=== PATIENT | male | born 1935 | race Caucasian/White ===

== ENCOUNTER 2016-11-27 13:10 | Inpatient (IN) | payer MEDICARE ==
[~2016-11-27] VITALS: Ht 167.6 cm; Wt 82.8 kg
[2016-11-27 16:35] VITALS: BP 157/78; PULSE 80; RESP 16; TEMP 97.3; O2SAT 95
[2016-11-27 17:00] VITALS: PULSE 75
--- NOTE | 2016-11-27 17:06 | RADRPT ---
EXAM DATE/TIME: 11/27/2016 16:43 [facility] COMPARISON: No previous studies available for comparison. INDICATIONS : Evaluate for pneumonia, pneumothorax, and communicable disease. Preop for CABG. MEDICAL HISTORY : None. SURGICAL HISTORY : None. ENCOUNTER: Initial ACUITY: 1 day PAIN SCORE: 0/10 LOCATION: Bilateral chest FINDINGS: A single view of the chest demonstrates the lungs to be symmetrically aerated without evidence of mas s, infiltrate or effusion. The cardiomediastinal contours are unremarkable. Osseous structures are intact. CONCLUSION: No acute disease. Antonio Ryan MD FACR on November 27, 2016 at 17:04 Board Certified Radiologist. This report was verified electronically.
[2016-11-27] MEDS ORDERED: FISHCAP4 PO (17:34)
[2016-11-27] MEDS ORDERED: PANT40TA3 PO (17:34)
[2016-11-27] MEDS ORDERED: VALS1TAB65 PO (17:34)
[2016-11-27] MEDS ORDERED: MIRT30TA PO (17:34)
[2016-11-27] MEDS ORDERED: TURM500C PO (17:34)
[2016-11-27] MEDS ORDERED: TERA2CAP3 PO (17:34)
[2016-11-27] MEDS ORDERED: CELE200C PO (17:34)
[2016-11-27] MEDS ORDERED: NITR0.2D2 T-DERMAL (17:34)
[2016-11-27] MEDS ORDERED: CLOP75TA PO (17:34)
[2016-11-27] MEDS ORDERED: LORA-373 PO (17:34)
[2016-11-27] MEDS ORDERED: MULTTAB67 PO (17:34)
[2016-11-27] MEDS ORDERED: METO25TA3 PO (17:34)
[2016-11-27] MEDS ORDERED: LUMI0.01 EACH EYE (17:34)
[2016-11-27] MEDS ORDERED: ASPI81CH CHEW (17:34)
[2016-11-27] MEDS ORDERED: MAGNESIUM HYDROXIDE SUSP 30 ML CUP PO PRN (17:45)
[2016-11-27] MEDS ORDERED: ONDANSETRON HCL 4 MG/2 ML VIAL IV PRN (17:45)
[2016-11-27] MEDS ORDERED: ACETAMINOPHEN 325 MG TAB PO PRN (17:45)
[2016-11-27 18:00] VITALS: PULSE 76
[2016-11-27] MEDS ORDERED: NITROGLYCERIN 0.4 MG SL 25 TABS/BTL SL PRN (18:00)
[2016-11-27 19:00] VITALS: BP 157/78; PULSE 85; RESP 18; TEMP 97.9; O2SAT 99
[2016-11-27] MEDS: DOCUSATE SODIUM 100 MG CAP PO SCH (21:00)
[2016-11-27] MEDS: TERAZOSIN HCL 1 MG CAP PO SCH (21:54)
[2016-11-27] MEDS: METOPROLOL TARTRATE 25 MG TAB PO SCH (21:54)
[2016-11-27 22:41] LABS: P2Y12 REACTION UNITS (PRU) 88 PRU (194-418)
[2016-11-27 22:54] LABS: BLOOD, URINE NEG (NEG); GLUCOSE,URINE NEG (NEG); KETONE, URINE TRACE mg/dL (NEG); NITRITE,URINE NEG (NEG); PH, URINE 6.5 (5.0-8.5); URINE COLOR YELLOW (YELLW/STRAW)
[2016-11-27 22:57] LABS: COMMENT (UR) CULT NOT INDICATED; CULTURE IF INDICATED CULT NOT INDICATED
[2016-11-27 23:00] VITALS: PULSE 80
[2016-11-28] VITALS (20 sets, daily range): BP systolic 124–188; BP diastolic 59–88; PULSE 67–139; RESP 16–22; TEMP 97.3–98.6; O2SAT 93–97
[2016-11-28] MEDS: PANTOPRAZOLE SOD 40 MG DELAYED RELEASE TAB PO SCH (05:55)
[2016-11-28 06:13] LABS: AUTOMATED NEUTROPHIL # 2.8 TH/MM3 (1.8-7.7); BASOPHIL % 0.9 % (0.0-2.0); EOSINOPHIL # 0.1 TH/MM3 (0-0.4); EOSINOPHIL % 2.9 % (0.0-4.0); HEMATOCRIT 32.7 % (39.0-51.0); HEMO FLAGS DIFF FINAL; LYMPH % 21.3 % (9.0-44.0); MEAN CELL VOLUME 89.3 FL (80.0-100.0); MEAN CORPUSCULAR HEMOGLOBIN 30.6 PG (27.0-34.0); MEAN CORPUSCULAR HGB CONC 34.2 % (32.0-36.0); MONO % 12.3 % (0.0-8.0); NEUT % 62.6 % (16.0-70.0); PLATELET COUNT 186 TH/MM3 (150-450); RED BLOOD COUNT 3.66 MIL/MM3 (4.50-5.90); RED CELL DISTRIBUTION WIDTH 13.1 % (11.6-17.2); WHITE BLOOD COUNT 4.5 TH/MM3 (4.0-11.0)
[2016-11-28 06:40] LABS: ANION GAP 8 MEQ/L (5-15); AST (GOT) 13 U/L (15-37); BLOOD UREA NITROGEN 11 MG/DL (7-18); CHLORIDE 104 MEQ/L (98-107); GLOMERULAR FILTRATION RATE 93 ML/MIN (>89); SODIUM (NA) 139 MEQ/L (136-145)
[2016-11-28 06:43] LABS: ALKALINE PHOSPHATASE 61 U/L (45-117); ALT (GPT) 19 U/L (12-78); TOTAL BILIRUBIN ADULT 0.3 MG/DL (0.2-1.0)
[2016-11-28] MEDS: METOPROLOL TARTRATE 25 MG TAB PO SCH ×2 (08:03→20:28)
[2016-11-28] MEDS: DOCUSATE SODIUM 100 MG CAP PO SCH ×2 (08:03→20:28)
[2016-11-28] MEDS ORDERED: ASPIRIN EC 81 MG TABEC PO SCH (09:00)
[2016-11-28] MEDS ORDERED: ACETAMINOPHEN/HYDROcodone 325 MG/5 MG TAB PO PRN (10:00)
[2016-11-28] MEDS ORDERED: LORazepam 0.5 MG TAB PO PRN (10:00)
[2016-11-28] MEDS ORDERED: METOPROLOL TARTRATE 25 MG TAB PO SCH (14:15)
[2016-11-28] MEDS ORDERED: SODIUM CHLORIDE 0.9% FLUSH 5 ML FLUSH IV FLUSH PRN (14:15)
[2016-11-28] MEDS ORDERED: CEFAZOLIN INJ 500 MG in SODIUM CHLORIDE 0.9% IRR BTL 500 ML IRRIGATION SCH (14:15)
[2016-11-28] MEDS ORDERED: PAPAVERINE INJ 60 MG, NITROGLYCERIN INJ 100 MCG, DILTIAZEM INJ 100 MG in SODIUM CHLORID... IRRIGATION SCH (14:15)
[2016-11-28] MEDS ORDERED: INSULIN REGULAR (IV INFUSION) 100 UNITS in SODIUM CHLORIDE 0.9% INJ 100 ML IV SCH (14:15)
[2016-11-28] MEDS ORDERED: CHLORHEXIDINE GLUCONATE 4% SOLN 120 ML BTL TOPICAL SCH (14:15)
[2016-11-28] MEDS ORDERED: ceFAZolin 2 GM PREMIX 50 ML IV SCH (14:15)
[2016-11-28] MEDS ORDERED: PILL SPLITTER OTHER PRN (15:15)
--- NOTE | 2016-11-28 16:02 | RADRPT ---
EXAM DATE/TIME: 11/28/2016 15:11 [facility] COMPARISON: No previous studies available for comparison. INDICATIONS : Preop cardiac surgery. MEDICAL HISTORY : Hypertension. Gastroesophageal reflux disease. Rheumatoid arthritis. Detached retina. Chest pain. SURGICAL HISTORY : Inguinal hernia repair. Bilateral cataract surgery. Prostate biopsy. Cardiac cath. ENCOUNTER: Initial ACUITY: 1 day PAIN SCORE: 0/10 LOCATION: Bilateral leg. GREATER SAPHENOUS VEIN THIGH: PROXIMAL: Right 3 mm Left 4 mm MID: Right 2 mm Left 2 mm DISTAL: Right 1 mm Left 2 mm CALF: PROXIMAL: Right 1 mm Left 1 mm MID: Right 1 mm Left 1 mm DISTAL: Right Non-visualized Left Non-visualized FINDINGS: The venous system of the lower extremities are patent by color Doppler imaging. Measurements of the leg veins (in mm) are listed above. CONCLUSION: 1. Venous mapping as above Nakul Napoles MD on November 28, 2016 at 16:00 Board Certified Radiologist. This report was verified electronically.
--- NOTE | 2016-11-28 16:07 | RADRPT ---
EXAM DATE/TIME: 11/28/2016 14:39 [facility] COMPARISON: No previous studies available for comparison. INDICATIONS : Preop cardiac surgery. MEDICAL HISTORY : Hypertension. Gastroesophageal reflux disease. Rheumatoid arthritis. Detached retina. Chest pain. SURGICAL HISTORY : Inguinal hernia repair. Bilateral cataract surgery. Prostate biopsy. Cardiac cath. ENCOUNTER: Initial ACUITY: 1 day PAIN SCORE: 0/10 LOCATION: Bilateral neck PEAK SYSTOLIC VELOCITIES (cm/sec): ICA/CCA RATIO: Right: 1.4 Left: 0.9 ICA: Right: 98 Left: 100 CCA: Right: 70 Left: 106 ECA: Right: 76 Left: 80 VERTEBRAL: Right: 58 antegrade Left: 70 antegrade Elevated flow velocities and ICA/CCA ratios have been found to correlate with increased degrees of vessel stenosis, calculated as percentage of diameter relative to a normal segment of distal ICA/CCA FINDINGS: RIGHT CAROTID: There is mild plaque at the carotid bulb region. No significant stenosis is visualized. The waveform s are within normal limits. LEFT CAROTID: There is mild plaque at the carotid bulb region. No significant stenosis is visualized. The waveform s are within normal limits. VERTEBRAL ARTERIES: Antegrade flow is seen in both vertebral arteries. MISCELLANEOUS: None. CONCLUSION: Mild plaque at the carotid bulb regions without a significant stenosis. Jose Juan Johnson MD on November 28, 2016 at 16:05 Board Certified Radiologist. This report was verified electronically.
--- NOTE | 2016-11-28 16:08 | RADRPT ---
EXAM DATE/TIME: 11/28/2016 14:56 [facility] COMPARISON: No previous studies available for comparison. INDICATIONS : Preop cardiac surgery. MEDICAL HISTORY : Hypertension. Gastroesophageal reflux disease. Rheumatoid arthritis. Detached retina. Chest pain. SURGICAL HISTORY : Inguinal hernia repair. Bilateral cataract surgery. Prostate biopsy. Cardiac cath. ENCOUNTER: Initial ACUITY: 1 day PAIN SCORE: 0/10 LOCATION: Bilateral leg. TECHNIQUE: Venous ultrasound of the left and right leg was performed from the inguinal ligament to the proximal calf. Real-time, color Doppler and spectral tracing, compression and augmentation techniques were us ed. FINDINGS: RIGHT LEG: There is normal compressibility of the deep venous system from the inguinal region to the proximal ca lf. No echogenic clot is seen in the lumen of the common femoral, femoral, popliteal, and posterior tibial veins. There is a normal response of the venous system to proximal and distal augmentation an d respiration. LEFT LEG: There is normal compressibility of the deep venous system from the inguinal region to the proximal ca lf. No echogenic clot is seen in the lumen of the common femoral, femoral, popliteal, and posterior tibial veins. There is a normal response of the venous system to proximal and distal augmentation an d respiration. CONCLUSION: No DVT. Jose Juan Johnson MD on November 28, 2016 at 16:06 Board Certified Radiologist. This report was verified electronically.
--- NOTE | 2016-11-28 19:04 | EC ---
Study Study Date:11/28/2016 STUDY CONCLUSIONS SUMMARY - Left ventricle: The cavity size was normal. Wall thickness was normal. Systolic function was normal. The estimated ejection fraction was in the range of 55% to 60%. Wall motion was normal; there were no regional wall motion abnormalities. - Aortic valve: Mild regurgitation. - Mitral valve: Mild regurgitation. - Tricuspid valve: Mild regurgitation. - Pulmonary arteries: PA peak pressure: 36mm Hg (S). If LV function is below 40, please consider prescribing an ACEI or ARB or document rationale for non-use. PROCEDURE DATA STUDY STATUS: Elective. Procedure: Transthoracic echocardiography. Image quality was good. Scanning was performed from the parasternal, apical, and subcostal acoustic windows. Study completion: The patient tolerated the procedure well. Transthoracic echocardiography. M-mode, complete 2D, complete spectral Doppler, and color Doppler. Patient status: Inpatient. CARDIAC ANATOMY LEFT VENTRICLE: The cavity size was normal. Wall thickness was normal. Systolic function was normal. The estimated ejection fraction was in the range of 55% to 60%. Wall motion was normal; there were no regional wall motion abnormalities. AORTIC VALVE: Trileaflet; normal thickness leaflets. Doppler: Transvalvular velocity was within the normal range. There was no stenosis. Mild regurgitation. AORTA: Aortic root: The aortic root was normal in size. MITRAL VALVE: Structurally normal valve. Doppler: Transvalvular velocity was within the normal range. There was no evidence for stenosis. Mild regurgitation. LEFT ATRIUM: The atrium was normal in size. RIGHT VENTRICLE: The cavity size was normal. Wall thickness was normal. PULMONIC VALVE: Doppler: Transvalvular velocity was within the normal range. There was no evidence for stenosis. No regurgitation. TRICUSPID VALVE: Structurally normal valve. Doppler: Transvalvular velocity was within the normal range. Mild regurgitation. PULMONARY ARTERY: The main pulmonary artery was normal-sized. Systolic pressure was within the normal range. RIGHT ATRIUM: The atrium was normal in size. PERICARDIUM: There was no pericardial effusion. SYSTEMIC VEINS: Inferior vena cava: The vessel was normal in size. BASIC MEASUREMENTS ADULT Normal Left ventricle LV internal dimension, ED, chordal level, *40.4 mm 43-52 PLAX LV internal dimension, ES, chordal level, 30 mm 23-38 PLAX Fractional shortening, chordal level, PLAX *26 % >29 LV posterior wall thickness, ED 10.5 mm IVS/LVPW ratio, ED 1.15 <1.3 Ventricular septum Septal thickness, ED 12.1 mm Aortic valve Leaflet separation 22 mm 15-26 Right ventricle RV internal dimension, ED, PLAX 34.7 mm 19-38 BASIC MEASUREMENTS ADULT Normal Aortic valve Leaflet separation 22 mm 15-26 Aorta Root diameter, ED 34 mm 20-37 Left atrium Anterior-posterior dimension, ES *45 mm 19-40 LA/aortic root ratio 1.32 DOPPLER MEASUREMENTS ADULT Normal Main pulmonary artery Pressure, S *36 mm Hg =30 Aortic valve Regurgitant velocity, ED 317 cm/s Regurgitant deceleration 1570 cm/s^2 Regurgitant pressure half-time 592 ms Regurgitant gradient, ED 40 mm Hg Tricuspid valve Regurgitant peak velocity 254 cm/s Peak RV-RA gradient, S 26 mm Hg Systemic veins Estimated CVP 10 mm Hg Right ventricle RV pressure, S *36 mm Hg <30 LEGEND: Mean values are shown as u=mean value. Asterisk (*) shah values outside specified normal range. Prepared and signed by Mateusz Page [id number]
[2016-11-28] MEDS: SODIUM CHLORIDE 0.9% FLUSH 5 ML FLUSH IV FLUSH SCH (20:28)
[2016-11-28] MEDS: ATORVASTATIN 40 MG TAB PO SCH (20:28)
[2016-11-28] MEDS: TERAZOSIN HCL 1 MG CAP PO SCH (20:28)
[2016-11-28] MEDS: traZODone HCL 50 MG TAB PO SCH (20:28)
[2016-11-28] MEDS: MIRTAZAPINE 15 MG TAB PO SCH (20:31)
[2016-11-28] MEDS ORDERED: MIRTAZAPINE 15 MG TAB PO SCH (21:00)
[2016-11-29] VITALS (27 sets, daily range): BP systolic 117–167; BP diastolic 58–76; PULSE 64–84; RESP 16–18; TEMP 97.6–98.1; O2SAT 95–97
[2016-11-29] MEDS: PANTOPRAZOLE SOD 40 MG DELAYED RELEASE TAB PO SCH (05:37)
[2016-11-29 06:07] LABS: P2Y12 REACTION UNITS (PRU) 168 PRU (194-418)
--- NOTE | 2016-11-29 08:45 | MH ---
cc: QUIQUE ALFORD MD DATE OF ADMISSION: 11/27/2016 DATE OF : 1935 HISTORY OF PRESENT ILLNESS An 81-year-old male patient of Dr. Wilson and Dr. Cristian Carrion from [facility] complaining of substernal chest pain off and on for about 10 days, mainly with exertion, and some radiation to both arms, relieved with rest. Initially was told to go to the emergency room but refused and then saw Dr. Carrion in the office. His pain was improved with a nitro patch but he did have worsening symptoms. He had a heart catheterization and was found to heavy calcification in the distribution of the left coronary artery and right coronary artery. The LAD had a ostial 90% stenosis, additional stenosis in the proximal and mid segment. The diagonal had a 90% stenosis. The circumflex had ostial 90%. The marginal artery had a mid 90%. The RCA had proximal segment of 90%. EF was 60%. The patient was then transferred to our facility to be evaluated for coronary artery bypass grafting. PAST MEDICAL HISTORY 1. Hypertension. 2. Hyperlipidemia. 3. Prostate cancer. 4. Severe rheumatoid arthritis. 5. Coronary artery disease. 6. Multivalvular insufficiency. 7. History of ventricular tachycardia. PAST SURGICAL HISTORY 1. Prostate seed implant. 2. Right hand surgery for extensive rheumatoid arthritis. 3. Cataract surgery. 4. Inguinal hernia repair. ALLERGIES HYDROCHLOROTHIAZIDE. MEDICATIONS Home meds include: 1. Fosamax. 2. Baby aspirin. 3. Celebrex. 4. Dexilant. 5. Enbrel. 6. Folic acid. 7. Ativan. 8. Metoprolol. 9. Nitro patch. 10. Plavix 75 mg daily. 11. Terazosin. 12. Trazodone. 13. Valsartan. FAMILY HISTORY Father from cancer, mother liver failure. SOCIAL HISTORY The patient is . Retired from [employer]. Has three children. Smoked for about 20 years, one pack, quit in the 1980s. No alcohol. REVIEW OF SYSTEMS GENERAL: No night sweats, fever, heat and cold intolerance. SKIN: No psoriasis, itching or hives. HEENT: No blurred vision or hearing loss. RESPIRATORY: No cough, shortness of breath. CARDIOVASCULAR: As above in HPI. GASTROINTESTINAL: No diarrhea, vomiting. GENITOURINARY: No burning, frequency, urgency. AS400 PROGRAMMER: No history of TIA, CVA, seizure disorder. ENDOCRINE: No diabetes or hypothyroidism. PHYSICAL EXAMINATION VITAL SIGNS: Blood pressure 160/80, heart rate 80, afebrile. GENERAL: The patient is awake, alert, in no acute distress. HEENT: Normocephalic, atraumatic. Has some arcus senilis. Some keratotic skin changes on the face. NECK: Supple. No JVD. HEART: Heart sounds S1, S2, regular rate and rhythm. No rubs, murmurs, gallops. LUNGS: Clear to auscultation. No wheezes, rales or rhonchi. ABDOMEN: Soft, nontender. No masses or organomegaly. EXTREMITIES: No cyanosis, clubbing or edema. LABORATORY DATA Lab work shows hemoglobin 11, hematocrit 32, white cell count 4.5, platelet count 186. Sodium 139, potassium 4.0, BUN 11, creatinine 0.80, AST 13, ALT 19. INR 1.0. Platelet inhibition is 88. Urinalysis is unremarkable. IMAGING DATA Chest x-ray is unremarkable. IMPRESSION AND PLAN This is an 81-year-old patient with recent chest pain, multivessel coronary artery disease. The procedures, alternatives and risks have been discussed by Dr. Quique Alford. The plan is for off-pump coronary bypass grafting on , possibly on Sunday. Will recheck a platelet inhibition test on ; will need to be greater than 200. This was all explained to the patient. In the meantime will add nitro to his medication list. We are going to hold the aspirin secondary to his low platelet inhibition test of 88. Further planning as per Dr. Alford. Dictated by: SINAN Belcher Quique CARTY/TASNEEM /11:03 AM /8:43 AM
[2016-11-29] MEDS: METOPROLOL TARTRATE 25 MG TAB PO SCH ×2 (08:59→20:46)
[2016-11-29] MEDS: DOCUSATE SODIUM 100 MG CAP PO SCH ×2 (08:59→20:46)
[2016-11-29] MEDS: SODIUM CHLORIDE 0.9% FLUSH 5 ML FLUSH IV FLUSH SCH ×2 (08:59→21:00)
[2016-11-29] MEDS: NITROGLYCERIN 2% OINT 1 GM PACKET TOPICAL SCH ×3 (09:01→22:00)
--- NOTE | 2016-11-29 10:11 | PD.CAR.PN ---
CVT Progress Note Subjective/Hospital Course: 81 male , transferred from [facility], recent chest pain s/p Heart Cath by Dr Halle Carrion LAD 90% stenosis , diagonal; 90% , circ 90% marginal 90% RCA 90% EF 60% PMH: HTN, HLP, prostate CA, severe RA , CAD HX V tach on plavix at home, initial pru 88/ now 168 scheduled for CABG on wednesday 11/29 doing well, no complaints Objective: GENERAL: SKIN: Warm and dry. HEAD: Normocephalic. EYES: No scleral icterus. No injection or drainage. NECK: Supple, trachea midline. No JVD or lymphadenopathy. CARDIOVASCULAR: Regular rate and rhythm without murmurs, gallops, or rubs. RESPIRATORY: Breath sounds equal bilaterally. No accessory muscle use. GASTROINTESTINAL: Abdomen soft, non-tender, nondistended. MUSCULOSKELETAL: No cyanosis, or edema. BACK: Nontender without obvious deformity. No CVA tenderness. Vital Signs Date Time Temp Pulse Resp B/P Pulse Ox O2 Delivery O2 Flow Rate FiO2 11/29/16 06:00 65 11/29/16 05:00 68 11/29/16 04:00 64 11/29/16 03:00 96 Room Air 11/29/16 03:00 98.0 71 18 134/62 96 11/29/16 03:00 65 11/29/16 02:00 64 11/29/16 01:00 66 11/29/16 00:00 76 11/28/16 23:00 97.9 76 18 142/68 97 11/28/16 23:00 67 11/28/16 23:00 97 Room Air 11/28/16 22:00 70 11/28/16 21:00 72 11/28/16 20:00 81 11/28/16 19:00 77 11/28/16 19:00 98.5 76 18 124/59 96 11/28/16 19:00 96 Room Air 11/28/16 18:00 80 11/28/16 17:00 69 11/28/16 16:00 70 11/28/16 15:00 71 11/28/16 15:00 97.9 72 17 164/82 94 11/28/16 14:00 71 11/28/16 13:00 72 11/28/16 12:00 68 11/28/16 11:00 70 11/28/16 11:00 97.9 69 17 139/68 96 11/28/16 10:00 70 Labs: Laboratory Tests Test 11/29/16 11/29/16 05:00 05:06 Blood Type O POSITIVE O POSITIVE Antibody Screen NEGATIVE Crossmatch Leukocyte-Reduced Red Blood Cells Blood Bank Comment Platelet Function P2Y12 React 168 PRU Units ([id number]) Result Diagram: 11/28/1651 11/28/1651 Telemetry: NSR (1) Coronary artery disease Plan: on BB , statin , ASA on hold for surgery on Sunday (2) Hyperlipemia (3) Hypertension Plan: stable (4) severe rheumatoid arthritis (5) hx of prostate CA Plan: prn pain meds, celebrex on hold [place] Bui Nov 29, 2016 10:11
--- NOTE | 2016-11-29 10:17 | PD.CAR.PN ---
CVT Progress Note Subjective/Hospital Course: 81 male , transferred from [facility], recent chest pain s/p Heart Cath by Dr Halle Carrion LAD 90% stenosis , diagonal; 90% , circ 90% marginal 90% RCA 90% EF 60% PMH: HTN, HLP, prostate CA, severe RA , CAD HX V tach on plavix at home, initial pru 88/ now 168 scheduled for CABG on wednesday 11/29 doing well, no complaints sts data discussed with pt RISK SCORES About the STS Risk Calculator Procedure: CAB Only Risk of Mortality: 1.632% Morbidity or Mortality: 10.521% Long Length of Stay: 4.187% Short Length of Stay: 45.9% Permanent Stroke: 1.173% Prolonged Ventilation: 6.364% DSW Infection: 0.209% Renal Failure: 1.724% Reoperation: 5.224% Objective: Vital Signs Date Time Temp Pulse Resp B/P Pulse Ox O2 Delivery O2 Flow Rate FiO2 11/29/16 06:00 65 11/29/16 05:00 68 11/29/16 04:00 64 11/29/16 03:00 96 Room Air 11/29/16 03:00 98.0 71 18 134/62 96 11/29/16 03:00 65 11/29/16 02:00 64 11/29/16 01:00 66 11/29/16 00:00 76 11/28/16 23:00 97.9 76 18 142/68 97 11/28/16 23:00 67 11/28/16 23:00 97 Room Air 11/28/16 22:00 70 11/28/16 21:00 72 11/28/16 20:00 81 11/28/16 19:00 77 11/28/16 19:00 98.5 76 18 124/59 96 11/28/16 19:00 96 Room Air 11/28/16 18:00 80 11/28/16 17:00 69 11/28/16 16:00 70 11/28/16 15:00 71 11/28/16 15:00 97.9 72 17 164/82 94 11/28/16 14:00 71 11/28/16 13:00 72 11/28/16 12:00 68 11/28/16 11:00 70 11/28/16 11:00 97.9 69 17 139/68 96 Labs: Laboratory Tests Test 11/29/16 11/29/16 05:00 05:06 Blood Type O POSITIVE O POSITIVE Antibody Screen NEGATIVE Crossmatch Leukocyte-Reduced Red Blood Cells Blood Bank Comment Platelet Function P2Y12 React 168 PRU Units ([id number]) Result Diagram: 11/28/1651 11/28/1651 (1) Coronary artery disease Plan: on BB , statin , ASA on hold for surgery on Sunday (2) Hyperlipemia (3) Hypertension Plan: stable (4) severe rheumatoid arthritis (5) hx of prostate CA Plan: prn pain meds, celebrex on hold [place] Bui Nov 29, 2016 10:17
[2016-11-29] MEDS: TERAZOSIN HCL 1 MG CAP PO SCH (20:44)
[2016-11-29] MEDS: traZODone HCL 50 MG TAB PO SCH (20:44)
[2016-11-29] MEDS: MIRTAZAPINE 15 MG TAB PO SCH (20:48)
[2016-11-29] MEDS: ATORVASTATIN 40 MG TAB PO SCH (21:00)
[2016-11-30] VITALS (26 sets, daily range): BP systolic 107–191; BP diastolic 58–91; PULSE 61–85; RESP 16–18; TEMP 97.7–98.7; O2SAT 95–99
[2016-11-30] MEDS: NITROGLYCERIN 2% OINT 1 GM PACKET TOPICAL SCH ×3 (05:33→21:15)
[2016-11-30] MEDS: PANTOPRAZOLE SOD 40 MG DELAYED RELEASE TAB PO SCH (05:33)
[2016-11-30 06:34] LABS: P2Y12 REACTION UNITS (PRU) 201 PRU (194-418)
[2016-11-30] MEDS: METOPROLOL TARTRATE 25 MG TAB PO SCH ×2 (08:07→21:15)
[2016-11-30] MEDS: SODIUM CHLORIDE 0.9% FLUSH 5 ML FLUSH IV FLUSH SCH (08:07)
[2016-11-30] MEDS: DOCUSATE SODIUM 100 MG CAP PO SCH ×2 (08:07→21:15)
--- NOTE | 2016-11-30 15:08 | PD.CAR.PN ---
CVT Progress Note Subjective/Hospital Course: 81 male , transferred from [facility], recent chest pain s/p Heart Cath by Dr Halle Carrion LAD 90% stenosis , diagonal; 90% , circ 90% marginal 90% RCA 90% EF 60% PMH: HTN, HLP, prostate CA, severe RA , CAD HX V tach on plavix at home, initial pru 88/ now 168 scheduled for CABG on wednesday 11/29 doing well, no complaints 11/30 had some confusion last pm, some hallucinations completely alert and oriented this am take remeron and trazadone at night Dr Pires spoke with pt and , they want to proceed with surgery PRU 201 Objective: GENERAL: SKIN: Warm and dry. HEAD: Normocephalic. EYES: No scleral icterus. No injection or drainage. NECK: Supple, trachea midline. No JVD or lymphadenopathy. CARDIOVASCULAR: Regular rate and rhythm without murmurs, gallops, or rubs. RESPIRATORY: Breath sounds equal bilaterally. No accessory muscle use. GASTROINTESTINAL: Abdomen soft, non-tender, nondistended. MUSCULOSKELETAL: No cyanosis, or edema. BACK: Nontender without obvious deformity. No CVA tenderness. Vital Signs Date Time Temp Pulse Resp B/P Pulse Ox O2 Delivery O2 Flow Rate FiO2 11/30/16 12:01 73 11/30/16 11:15 98.0 72 16 107/58 97 11/30/16 11:15 97 Room Air 11/30/16 11:00 75 11/30/16 10:00 74 11/30/16 09:00 71 11/30/16 08:30 98.5 72 16 154/58 97 11/30/16 08:30 97 Room Air 11/30/16 08:00 77 11/30/16 07:00 61 11/30/16 06:00 71 11/30/16 05:00 70 11/30/16 04:00 69 11/30/16 03:00 97.7 65 18 122/59 95 11/30/16 03:00 71 11/30/16 03:00 95 Room Air 11/30/16 02:00 66 11/30/16 01:00 61 11/30/16 00:00 61 11/29/16 23:00 66 11/29/16 23:00 98.0 68 17 125/64 95 11/29/16 23:00 95 Room Air 11/29/16 22:00 70 11/29/16 21:00 73 11/29/16 20:00 78 11/29/16 19:00 97.9 76 18 167/74 97 11/29/16 19:00 97 Room Air 11/29/16 19:00 71 11/29/16 18:01 72 11/29/16 17:01 71 11/29/16 16:00 74 11/29/16 15:45 98.0 72 16 131/68 97 11/29/16 15:45 98 Room Air Labs: Laboratory Tests Test 11/30/16 06:00 Platelet Function P2Y12 React 201 PRU Units ([id number]) Result Diagram: 11/28/16 0551 11/28/16 0551 Telemetry: NSR (1) Coronary artery disease Plan: on BB , statin , ASA on hold for surgery on Sunday (2) Hyperlipemia Plan: on statin (3) Hypertension Plan: stable (4) severe rheumatoid arthritis (5) hx of prostate CA Plan: prn pain meds, celebrex on hold (6) anxiety / depression / mild dementia Plan: continue home meds, environmental cues [place] Bui Nov 30, 2016 15:07
[2016-11-30] MEDS: MIRTAZAPINE 15 MG TAB PO SCH (18:45)
[2016-11-30] MEDS: ATORVASTATIN 40 MG TAB PO SCH (21:00)
[2016-11-30] MEDS: TERAZOSIN HCL 1 MG CAP PO SCH (21:15)
[2016-11-30] MEDS: traZODone HCL 50 MG TAB PO SCH (21:15)
[2016-11-30] MEDS: SODIUM CHLORID 0.9% 500 ML IV SCH (23:15)
[2016-11-30] MEDS: LACTATED RINGER'S 1000 ML IV SCH (23:15)
[2016-11-30] MEDS ORDERED: INSULIN HUMAN REGULAR 1,000 UNITS/10 ML VIAL SQ PRN (23:15)
[2016-12-01] VITALS (21 sets, daily range): BP systolic 92–145; BP diastolic 44–79; PULSE 59–104; RESP 14–18; TEMP 95.7–98; O2SAT 95–100
[2016-12-01] MEDS ORDERED: ESMOLOL HCL 100 MG/10 ML VIAL IV ONE (05:00)
[2016-12-01] MEDS ORDERED: ACETAMINOPHEN 1000 MG/100 ML VIAL IV ONE (05:00)
[2016-12-01] MEDS ORDERED: ceFAZolin INJ 1,000 MG VIAL IV ONE ×2 (05:00→11:30)
[2016-12-01] MEDS ORDERED: MAGNESIUM SULFATE 1000 MG/2 ML VIAL (PED) IV ONE (05:00)
[2016-12-01] MEDS ORDERED: DEXMEDETOMIDINE INJ 50 ML IV ONE (05:00)
[2016-12-01] MEDS ORDERED: NITROGLYCERIN-DEXTROSE INJ 250 ML IV ONE (05:00)
[2016-12-01] MEDS ORDERED: ARTIFICIAL TEARS OPTH OINT 3.5 APPLIC/3.5 GM TUBO ONE (05:00)
[2016-12-01] MEDS ORDERED: HEPARIN SODIUM - SQ 10,000 UNITS/ML VIAL SQ ONE (05:00)
[2016-12-01] MEDS: PANTOPRAZOLE SOD 40 MG DELAYED RELEASE TAB PO SCH (05:38)
[2016-12-01] MEDS: SODIUM CHLORIDE 0.9% FLUSH 5 ML FLUSH IV FLUSH SCH ×4 (05:39→21:00)
[2016-12-01] MEDS: METOPROLOL TARTRATE 25 MG TAB PO SCH ×2 (05:39→21:00)
[2016-12-01] MEDS: NITROGLYCERIN 2% OINT 1 GM PACKET TOPICAL SCH ×3 (06:00→22:00)
[2016-12-01] MEDS ORDERED: HEPARIN SODIUM - SQ 10,000 UNITS/ML VIAL ONE (06:24)
[2016-12-01] MEDS ORDERED: VANCOMYCIN HCL 1000 MG VIAL ONE (06:26)
[2016-12-01] MEDS ORDERED: POTASSIUM CHLORIDE 20 MEQ/10 ML VIAL ONE ×2 (07:02→11:16)
[2016-12-01] MEDS: DOCUSATE SODIUM 100 MG CAP PO SCH ×2 (09:00→20:19)
[2016-12-01] MEDS ORDERED: DEXTROSE 5% IV ONE (10:27)
[2016-12-01] MEDS ORDERED: ePHEDrine/NS 50 MG/5 ML SYR IV ONE (10:27)
[2016-12-01] MEDS ORDERED: DEXTROSE 5% IN WATE 500 ML INJ 500 ML IV ONE (10:27)
[2016-12-01] MEDS ORDERED: PROTAMINE SULFATE 250 MG/25 ML VIAL IV ONE (10:27)
[2016-12-01] MEDS ORDERED: WATER IV ONE (10:27)
[2016-12-01] MEDS ORDERED: PHENYLEPH/NS 1000 MCG/10 ML SYR IV ONE (10:27)
[2016-12-01] MEDS ORDERED: NORMOSOL R INJ 3,000 ML IV ONE (10:27)
[2016-12-01] MEDS ORDERED: LACTATED RINGER'S 1000 ML INJ 3,000 ML IV ONE (10:27)
[2016-12-01] MEDS ORDERED: LACTATED RINGER'S 1000 ML INJ 500 ML IV PRN (11:51)
[2016-12-01] MEDS ORDERED: ATROPINE SULFATE 1 MG/10 ML SYRINGE ONE (11:52)
[2016-12-01] MEDS ORDERED: EPINEPHrine HCL (1:10,000) 1 MG/10 ML SYRINGE ONE (11:52)
[2016-12-01] MEDS ORDERED: INSULIN REGULAR (IV INFUSION) 100 UNITS in SODIUM CHLORIDE 0.9% INJ 99 ML IV SCH (12:00)
[2016-12-01] MEDS ORDERED: DEXTROSE 50% IN WATER 50 ML VIAL(D50) IV PUSH PRN (12:00)
[2016-12-01] MEDS ORDERED: POTASSIUM CHLORIDE 20 MEQ CONTROLLED RELEASE TAB PO PRN ×2 (12:00)
[2016-12-01] MEDS ORDERED: ACETAMINOPHEN 325 MG TAB PO PRN (12:00)
[2016-12-01] MEDS ORDERED: CALCIUM CHLORIDE INJ 1 GM in SODIUM CHLORIDE 0.9% INJ 100 ML IV PRN (12:00)
[2016-12-01] MEDS ORDERED: METOPROLOL TARTRATE 5 MG/5 ML VIAL IV PUSH PRN (12:00)
[2016-12-01] MEDS ORDERED: MEPERIDINE HCL 25 MG/ML VIAL IV PRN (12:00)
[2016-12-01] MEDS ORDERED: Post-op Orders (for Pharmacy) MISC OTHER ONE (12:00)
[2016-12-01] MEDS ORDERED: NITROGLYCERIN-DEXTROSE INJ 250 ML IV SCH (12:00)
[2016-12-01] MEDS ORDERED: ACETAMINOPHEN/HYDROcodone 325 MG/5 MG TAB PO PRN (12:00)
[2016-12-01] MEDS ORDERED: EPINEPHrine (1:1000) INJ 4 MG in DEXTROSE 5% IN WATER INJ 246 ML IV SCH ×2 (12:00)
[2016-12-01] MEDS ORDERED: POTASSIUM CHLOR 20 MEQ PREMIX 100 ML IV PRN ×3 (12:00)
[2016-12-01] MEDS ORDERED: DEXMEDETOMIDINE INJ 50 ML IV SCH (12:00)
[2016-12-01] MEDS ORDERED: ACETAMINOPHEN 650 MG SUPP RECTAL PRN (12:00)
[2016-12-01] MEDS ORDERED: ONDANSETRON HCL 4 MG/2 ML VIAL IV PUSH PRN (12:00)
[2016-12-01] MEDS ORDERED: hydrALAZINE HCL 20 MG/ML VIAL IV PRN (12:00)
[2016-12-01] MEDS ORDERED: DOPamine INJ PREMIX 500 ML IV SCH (12:00)
[2016-12-01] MEDS ORDERED: CLEVIDIPINE INJ 50 ML IV SCH (12:00)
[2016-12-01] MEDS ORDERED: MORPHINE SULFATE 4 MG/ML INJ IV PRN (12:00)
[2016-12-01] MEDS ORDERED: SODIUM CHLORIDE 0.9% FLUSH 5 ML FLUSH IV FLUSH PRN (12:00)
[2016-12-01] MEDS ORDERED: CALCIUM CHLORIDE 10% 1 GRAM/10 ML VIAL IV PRN (12:00)
[2016-12-01] MEDS ORDERED: MAGNESIUM SULFATE INJ 2 GM in SODIUM CHLORIDE 0.9% INJ 100 ML IV PRN ×4 (12:00)
--- NOTE | 2016-12-01 12:00 | PD.OP ---
cc: Jose Antonio Pires MD Operative Report Date of Surgery: Dec 01, 2016 Preoperative Diagnosis: Postoperative Diagnosis: Procedure: 1. Urgent Off-pump Coronary Artery Bypass Grafting x 3 with left internal mammary artery (GIANG) to left anterior descending (LAD), reverse saphenous vein graft to OM1, reverse saphenous vein graft to the distal RCA 2. Right Leg Endoscopic Vein Victoria 3. Intraoperative Vein Mapping. . Surgeon: Jose Antonio Pires Oil Well Logger(s): Carlos Enrique Painter Operation and Findings: PREPROCEDURE DIAGNOSES 1. Severe Multi Vessel Coronary Artery Disease. 2. Diabetes 3. Unstable Angina POSTPROCEDURE DIAGNOSES Same SURGICAL PROCEDURE 1. Urgent Off-pump Coronary Artery Bypass Grafting x 3 with left internal mammary artery (GIANG) to left anterior descending (LAD), reverse saphenous vein graft to OM1, reverse saphenous vein graft to the distal RCA 2. Right Leg Endoscopic Vein Victoria 3. Intraoperative Vein Mapping. SURGEON Jose Antonio Pires MD NEW CLIENT BANKING SERVICES CLERK IVIS Aly, CSFA ANESTHESIA General endotracheal . [facility] Trejo MD PREPARATION ChloraPrep. COUNTS Needle, sponge, and instrument counts were correct. DRAINS Two 32-Upper Sorbian mediastinal tubes. COMPLICATIONS None. INDICATIONS FOR PROCEDURE The patient is a 81-year-old presenting with chest pain. Patient was noted to have multi-vessel coronary artery disease. The patient is being brought to the operating room for surgical revascularization therapy. PROCEDURE Patient was brought to the operating room and placed supine on the OR table. Following the induction of adequate general endotracheal anesthesia and placement of appropriate monitoring devices, intraoperative vein mapping was performed which revealed suitable-caliber conduit in bilateral lower extremities. The patient was then prepped and draped in standard sterile fashion. Next, 2500 units of intravenous heparin was given. The right greater saphenous vein was harvested endoscopically. This appeared to be a useable- caliber conduit. Simultaneously, a median sternotomy was performed and the left internal mammary artery dissected free off the posterior sternal table. The patient was systemically heparinized and anticoagulation monitored by serial ACT measurements. The internal mammary artery had good pulsatile flow in it and was a good-caliber conduit. The pericardium was then divided in the midline , the cradle created and targets analyzed. At this point, all anastomoses were performed in a beating-heart fashion using the Maquet stabilizing system. The left internal mammary artery was anastomosed to the distal LAD in an end-to- side fashion using 7-0 Prolene. Segment of saphenous vein graft was then anastomosed to the OM1 in an end-to-side fashion using 7-0 Prolene. The final segment was anastomosed to the distal RCA in an end-to-side fashion using a running 7-0 Prolene. The proximal anastomoses were then constructed to the ascending aorta in a running manner using 6-0 Prolene. All anastomotic sites were inspected and appeared to be hemostatic and patent. Protamine solution was given. Strict hemostasis was assured. The closure was undertaken. 2 chest tubes were placed. The pericardium was reapproximated in the midline. The sternum was approximated using sternal wires. The muscular and fascial layer were then closed in 3 layers. The endoscopic vein harvest site was closed in 2 layers. The patient tolerated the procedure well and was transferred to CVICU in stable condition. Jose Antonio Pires MD Dec 01, 2016 11:59
--- NOTE | 2016-12-01 12:04 | RSPPFT ---
DATE OF PROCEDURE: 11/29/16 COMMENTS: Spirometry shows FVC of 2.3 at 77% of predicted, FEV1 of 1.7 at 76%, FEV1/FVC ratio is normal. Flow is decreased at FEF 25-75. IMPRESSION: 1. Mild obstructive lung disease. 2. Additional restrictive lung disease is not ruled out from this study.
[2016-12-01] MEDS ORDERED: fentaNYL CITRATE 1000 MCG/20 ML VIAL ONE (12:46)
[2016-12-01] MEDS ORDERED: MIDAZOLAM HCL 5 MG/5 ML VIAL ONE (12:46)
[2016-12-01] MEDS ORDERED: RESP: RACEPINEPHRINE 2.25% 0.5 ML NEB NEB PRN (13:00)
[2016-12-01] MEDS ORDERED: RESP: ALBUTEROL 2.5 MG/IPRATROPIUM 0.5 MG NEB (PRN) NEB (13:00)
[2016-12-01] MEDS ORDERED: DOBUTamine PREMIX DRIP 250 ML IV SCH (13:00)
--- NOTE | 2016-12-01 13:16 | RADRPT ---
EXAM DATE/TIME: 12/01/2016 12:40 [facility] COMPARISON: CHEST SINGLE AP, November 27, 2016, 16:43. INDICATIONS : Post coronary bypass. MEDICAL HISTORY : Hypertension. Gastroesophageal reflux disease. SURGICAL HISTORY : CABG. ENCOUNTER: Initial ACUITY: 1 day PAIN SCORE: Non-responsive. LOCATION: Bilateral chest FINDINGS: A single view of the chest in a straight postsurgical changes following CABG. Supportive devices which included an endotracheal tube, nasogastric tube, left subclavian central alex e, mediastinal drain and left thoracostomy tube are in good position. Minimal airspace disease is seen in the left lung base. Lungs are otherwise well-expanded. CONCLUSION: Satisfactory postoperative appearance of the chest following CABG. Supportive devices in good position. Romeo Garcia MD on December 01, 2016 at 13:13 Board Certified Radiologist. This report was verified electronically.
[2016-12-01] MEDS ORDERED: ACETAMINOPHEN 1000 MG/100 ML VIAL IV SCH (14:00)
[2016-12-01] MEDS: PHENYLEPHRINE INJ 40 MG in DEXTROSE 5% IN WATE 500 ML INJ 496 ML IV SCH ×2 (15:20)
[2016-12-01] MEDS: ceFAZolin 2 GM PREMIX 50 ML IV SCH ×2 (15:39→23:07)
[2016-12-01] MEDS: SODIUM CHLORID 0.9% 500 ML IV SCH (15:55)
[2016-12-01] MEDS: ALBUMIN HUMAN 5% 12.5 GM/250 ML BOTTLE IV PRN ×2 (15:56→20:19)
[2016-12-01] MEDS: RESP: ALBUTEROL 2.5 MG/IPRATROPIUM 0.5 MG NEB (SCH) NEB ×2 (15:57→21:11)
[2016-12-01] MEDS: MIRTAZAPINE 15 MG TAB PO SCH (16:00)
[2016-12-01] MEDS: ACETAMINOPHEN 1000 MG/100 ML VIAL IV SCH ×2 (17:02→23:08)
[2016-12-01] MEDS: KETOROLAC TROMETHAMINE 30 MG/ML (IVP) VIAL IV PUSH PRN (18:13)
[2016-12-01] MEDS: AMIODARONE 200 MG TAB PO SCH (20:19)
[2016-12-01] MEDS: ATORVASTATIN 40 MG TAB PO SCH (21:00)
[2016-12-01] MEDS: traZODone HCL 50 MG TAB PO SCH (21:00)
[2016-12-01] MEDS: TERAZOSIN HCL 1 MG CAP PO SCH (21:00)
[2016-12-01] MEDS: LACTATED RINGER'S 1000 ML IV SCH (23:15)
[2016-12-02] VITALS (17 sets, daily range): BP systolic 89–126; BP diastolic 41–58; PULSE 94–108; RESP 16–22; TEMP 97.7–98.9; O2SAT 94–99
--- NOTE | 2016-12-02 03:57 | RADRPT ---
EXAM DATE/TIME: 12/02/2016 02:49 [facility] COMPARISON: CHEST SINGLE AP, December 01, 2016, 12:40. INDICATIONS : Shortness of breath, possible pulmonary disease. MEDICAL HISTORY : Hypertension. Gastroesophageal reflux disease. SURGICAL HISTORY : CABG. ENCOUNTER: Subsequent ACUITY: 2 days PAIN SCORE: 6/10 LOCATION: Left chest FINDINGS: Left chest tube tip remains projected at the apex. Right chest tube in the medial right midlung. Le ft subclavian catheter tip projects over the distal superior vena cava. No evidence pneumothorax. T here is increasing hazy opacity in the left mid and lower lung with loss of delineation left hemidiap hragm. The appearance suggests a combination of left lower lung atelectasis and pleural effusion. T here is also some mild haziness to the right hemidiaphragm suggesting possible right pleural effusion . CONCLUSION: Findings suggest development of bilateral pleural effusions and atelectasis or consolidation at the l eft lung base. Cristhian Bucio MD on December 02, 2016 at 3:54 Board Certified Radiologist. This report was verified electronically.
[2016-12-02] MEDS: RESP: ALBUTEROL 2.5 MG/IPRATROPIUM 0.5 MG NEB (SCH) NEB ×3 (04:16→20:06)
[2016-12-02] MEDS: PHENYLEPHRINE INJ 40 MG in DEXTROSE 5% IN WATE 500 ML INJ 496 ML IV SCH ×2 (04:49)
[2016-12-02] MEDS: KETOROLAC TROMETHAMINE 30 MG/ML (IVP) VIAL IV PUSH PRN (04:51)
[2016-12-02 04:55] LABS: HEMATOCRIT 27.6 % (39.0-51.0); MEAN CELL VOLUME 87.7 FL (80.0-100.0); MEAN CORPUSCULAR HEMOGLOBIN 30.6 PG (27.0-34.0); MEAN CORPUSCULAR HGB CONC 34.8 % (32.0-36.0); PLATELET COUNT 163 TH/MM3 (150-450); RED BLOOD COUNT 3.14 MIL/MM3 (4.50-5.90); RED CELL DISTRIBUTION WIDTH 13.7 % (11.6-17.2); REVIEW FLAG FINAL; WHITE BLOOD COUNT 6.6 TH/MM3 (4.0-11.0)
[2016-12-02] MEDS: ACETAMINOPHEN 1000 MG/100 ML VIAL IV SCH ×2 (05:00→10:50)
[2016-12-02 05:12] LABS: BICARBONATE 23.1 MEQ/L (21.0-32.0); MAGNESIUM 1.9 MG/DL (1.5-2.5); POTASSIUM 3.9 MEQ/L (3.5-5.1)
[2016-12-02 05:30] LABS: CALCIUM-PROTEIN CORRECTED 8.7 MG/DL (8.5-10.1)
[2016-12-02] MEDS: NITROGLYCERIN 2% OINT 1 GM PACKET TOPICAL SCH ×3 (06:00→23:07)
[2016-12-02] MEDS: ceFAZolin 2 GM PREMIX 50 ML IV SCH ×2 (07:38→17:08)
[2016-12-02] MEDS: ASPIRIN 81 MG CHEW TAB PO SCH (07:39)
[2016-12-02] MEDS: AMIODARONE 200 MG TAB PO SCH ×2 (07:39→20:27)
[2016-12-02] MEDS: DOCUSATE SODIUM 100 MG CAP PO SCH ×2 (07:39→20:27)
[2016-12-02] MEDS: CLOPIDOGREL 75 MG TAB PO SCH (07:39)
[2016-12-02] MEDS: METOPROLOL TARTRATE 25 MG TAB PO SCH ×2 (07:40→20:26)
[2016-12-02] MEDS: PANTOPRAZOLE SOD 40 MG DELAYED RELEASE TAB PO SCH (07:41)
[2016-12-02] MEDS: SODIUM CHLORIDE 0.9% FLUSH 5 ML FLUSH IV FLUSH SCH ×2 (07:41→20:27)
--- NOTE | 2016-12-02 08:20 | PD.CAR.PN ---
CVT Progress Note Subjective/Hospital Course: 81 male , transferred from [facility], recent chest pain s/p Heart Cath by Dr Halle Carrion LAD 90% stenosis , diagonal; 90% , circ 90% marginal 90% RCA 90% EF 60% PMH: HTN, HLP, prostate CA, severe RA , CAD HX V tach on plavix at home, initial pru 88/ now 168 scheduled for CABG on wednesday 11/29 doing well, no complaints 11/30 had some confusion last pm, some hallucinations completely alert and oriented this am take remeron and trazadone at night Dr Pires spoke with pt and , they want to proceed with surgery PRU 201 12/01 Procedure: 1. Urgent Off-pump Coronary Artery Bypass Grafting x 3 with left internal mammary artery (GIANG) to left anterior descending (LAD), reverse saphenous vein graft to OM1, reverse saphenous vein graft to the distal RCA 2. Right Leg Endoscopic Vein [place] 3. Intraoperative Vein Mapping. 12/02 Doing well Continues to have intermittent hallucinations as preop, but realizes that's what they are. Likely some component of sun-downing Wean Ben today Transfer CPCU Maintain CT low-dose beta mary Objective: Vital Signs Date Time Temp Pulse Resp B/P Pulse Ox O2 Delivery O2 Flow Rate FiO2 12/02/16 03:31 98.9 94 16 96/44 99 12/02/16 03:31 99 Nasal Cannula 2.00 12/02/16 03:00 96 12/02/16 02:15 98.8 99 16 89/49 99 99/43 12/02/16 00:50 98.6 104 16 91/44 99 92/42 12/01/16 23:40 16 12/01/16 23:15 16 12/01/16 23:00 98.0 104 14 103/45 99 12/01/16 23:00 99 Nasal Cannula 2.00 12/01/16 23:00 104 12/01/16 21:12 99 Nasal Cannula 3.00 12/01/16 20:00 99 Nasal Cannula 3.00 12/01/16 20:00 97.1 90 16 98/44 98 12/01/16 19:30 16 12/01/16 19:00 90 12/01/16 18:00 99 12/01/16 17:00 88 12/01/16 16:00 70 12/01/16 15:00 95 12/01/16 15:00 96.9 95 18 92/47 98 12/01/16 15:00 97 Nasal Cannula 3.00 12/01/16 14:00 86 12/01/16 13:09 99 Nasal Cannula 4.00 12/01/16 13:09 99 Nasal Cannula 4 12/01/16 13:00 99 40 12/01/16 13:00 88 12/01/16 12:13 100 60 12/01/16 12:00 86 12/01/16 12:00 95.7 64 18 134/57 99 134/57 12/01/16 12:00 60 12/01/16 12:00 100 Mechanical Ventilator 60 Labs: Laboratory Tests Test 12/02/16 04:22 White Blood Count 6.6 TH/MM3 (4.0-11.0) Red Blood Count 3.14 MIL/MM3 (4.50-5.90) Hemoglobin 9.6 GM/DL (13.0-17.0) Hematocrit 27.6 % (39.0-51.0) Mean Corpuscular Volume 87.7 FL (80.0-100.0) Mean Corpuscular Hemoglobin 30.6 PG (27.0-34.0) Mean Corpuscular Hemoglobin 34.8 % Concent (32.0-36.0) Red Cell Distribution Width 13.7 % (11.6-17.2) Platelet Count 163 TH/MM3 (150-450) Mean Platelet Volume 8.1 FL (7.0-11.0) Sodium Level 139 MEQ/L (136-145) Potassium Level 3.9 MEQ/L (3.5-5.1) Chloride Level 108 MEQ/L (98-107) Carbon Dioxide Level 23.1 MEQ/L (21.0-32.0) Anion Gap 8 MEQ/L (5-15) Blood Urea Nitrogen 11 MG/DL (7-18) Creatinine 0.72 MG/DL (0.60-1.30) Estimat Glomerular Filtration 105 ML/MIN Rate (>89) Random Glucose 84 MG/DL (74-106) Calcium Level 7.1 MG/DL (8.5-10.1) Protein Corrected Calcium 8.7 MG/DL (8.5-10.1) Magnesium Level 1.9 MG/DL (1.5-2.5) Total Protein 4.2 GM/DL (6.4-8.2) Result Diagram: 12/02/1642112/02/16421 (1) Coronary artery disease Plan: on BB , statin , ASA on hold for surgery on Sunday (2) Hyperlipemia Plan: on statin (3) Hypertension Plan: stable (4) severe rheumatoid arthritis (5) hx of prostate CA Plan: prn pain meds, celebrex on hold (6) anxiety / depression / mild dementia Plan: continue home meds, environmental cues Jose Antonio Pires MD Dec 02, 2016 08:20
[2016-12-02] MEDS ORDERED: BISACODYL 10 MG SUPP RECTAL PRN (08:30)
[2016-12-02] MEDS ORDERED: SOD PHOSPHATE/SOD BIPHOSPHATE (ADULT) ENEMA 133ML RECTAL PRN (08:30)
[2016-12-02] MEDS ORDERED: DEXTROSE 50% IN WATER 50 ML VIAL(D50) IV PRN (08:30)
[2016-12-02] MEDS ORDERED: GLUCAGON 1 MG/ML VIAL OTHER PRN (08:30)
[2016-12-02] MEDS: INSULIN ASPART SUPPLEMENTAL SCALE SQ SCH ×4 (10:00→22:00)
[2016-12-02] MEDS: MIRTAZAPINE 15 MG TAB PO SCH ×2 (17:07→18:37)
[2016-12-02] MEDS: ACETAMINOPHEN/HYDROcodone 325 MG/5 MG TAB PO PRN (17:47)
[2016-12-02] MEDS: SENNOSIDES 8.6 MG TAB PO SCH (20:24)
[2016-12-02] MEDS: traZODone HCL 50 MG TAB PO SCH (20:24)
[2016-12-02] MEDS: ATORVASTATIN 40 MG TAB PO SCH (20:25)
[2016-12-02] MEDS: TERAZOSIN HCL 1 MG CAP PO SCH (20:26)
[2016-12-02] MEDS ORDERED: DOCUSATE SODIUM 100 MG CAP PO SCH (21:00)
[2016-12-02] MEDS: LACTATED RINGER'S 1000 ML IV SCH (23:15)
[2016-12-03] VITALS (29 sets, daily range): BP systolic 99–135; BP diastolic 51–63; PULSE 80–115; RESP 16–18; TEMP 98.1–99.6; O2SAT 95–100
[2016-12-03] MEDS: ceFAZolin 2 GM PREMIX 50 ML IV SCH (00:20)
[2016-12-03] MEDS: INSULIN ASPART SUPPLEMENTAL SCALE SQ SCH ×5 (02:00→20:58)
[2016-12-03] MEDS: NITROGLYCERIN 2% OINT 1 GM PACKET TOPICAL SCH ×3 (06:00→22:37)
[2016-12-03] MEDS: PANTOPRAZOLE SOD 40 MG DELAYED RELEASE TAB PO SCH (06:00)
[2016-12-03 06:10] LABS: AUTOMATED NEUTROPHIL # 3.4 TH/MM3 (1.8-7.7); BASOPHIL % 0.7 % (0.0-2.0); EOSINOPHIL # 0.1 TH/MM3 (0-0.4); EOSINOPHIL % 1.4 % (0.0-4.0); HEMATOCRIT 24.6 % (39.0-51.0); HEMO FLAGS DIFF FINAL; LYMPH % 9.3 % (9.0-44.0); LYMPHOCYTE # 0.5 TH/MM3 (1.0-4.8); MEAN CELL VOLUME 88.8 FL (80.0-100.0); MEAN CORPUSCULAR HEMOGLOBIN 30.5 PG (27.0-34.0); MEAN CORPUSCULAR HGB CONC 34.4 % (32.0-36.0); MONO % 20.6 % (0.0-8.0); PLATELET COUNT 128 TH/MM3 (150-450); RED BLOOD COUNT 2.77 MIL/MM3 (4.50-5.90); RED CELL DISTRIBUTION WIDTH 13.8 % (11.6-17.2)
[2016-12-03 06:18] LABS: BICARBONATE 24.9 MEQ/L (21.0-32.0); MAGNESIUM 1.9 MG/DL (1.5-2.5); POTASSIUM 4.3 MEQ/L (3.5-5.1)
[2016-12-03] MEDS: ACETAMINOPHEN/HYDROcodone 325 MG/5 MG TAB PO PRN ×2 (06:36→20:57)
[2016-12-03] MEDS: RESP: ALBUTEROL 2.5 MG/IPRATROPIUM 0.5 MG NEB (SCH) NEB ×3 (07:27→19:54)
[2016-12-03] MEDS: SODIUM CHLORIDE 0.9% FLUSH 5 ML FLUSH IV FLUSH SCH ×2 (09:00→21:00)
[2016-12-03] MEDS: POLYETHYLENE GLYCOL 17 GM PKG PO SCH (09:38)
[2016-12-03] MEDS: METOPROLOL TARTRATE 25 MG TAB PO SCH ×2 (09:38→20:45)
[2016-12-03] MEDS: MAGNESIUM HYDROXIDE SUSP 30 ML CUP PO SCH (09:38)
[2016-12-03] MEDS: AMIODARONE 200 MG TAB PO SCH ×2 (09:39→20:57)
[2016-12-03] MEDS: DOCUSATE SODIUM 100 MG CAP PO SCH ×2 (09:39→20:46)
[2016-12-03] MEDS: MULTIVITAMINS/MINERALS THERAPEUTIC TAB PO SCH (09:39)
[2016-12-03] MEDS: ASPIRIN 81 MG CHEW TAB PO SCH (09:39)
[2016-12-03] MEDS: CLOPIDOGREL 75 MG TAB PO SCH (09:39)
--- NOTE | 2016-12-03 10:51 | PD.CAR.PN ---
CVT Progress Note Subjective/Hospital Course: 81 male , transferred from [facility], recent chest pain s/p Heart Cath by Dr Halle Carrion LAD 90% stenosis , diagonal; 90% , circ 90% marginal 90% RCA 90% EF 60% PMH: HTN, HLP, prostate CA, severe RA , CAD HX V tach on plavix at home, initial pru 88/ now 168 scheduled for CABG on wednesday 11/29 doing well, no complaints 11/30 had some confusion last pm, some hallucinations completely alert and oriented this am take remeron and trazadone at night Dr Pires spoke with pt and , they want to proceed with surgery PRU 201 12/01 Procedure: 1. Urgent Off-pump Coronary Artery Bypass Grafting x 3 with left internal mammary artery (GIANG) to left anterior descending (LAD), reverse saphenous vein graft to OM1, reverse saphenous vein graft to the distal RCA 2. Right Leg Endoscopic Vein [place] 3. Intraoperative Vein Mapping. 12/02 Doing well Continues to have intermittent hallucinations as preop, but realizes that's what they are. Likely some component of sun-downing Wean Ben today Transfer CPCU Maintain CT low-dose beta mary 12/[address] dumped with ambulation D/C CT tomorrow Discharge planning Objective: Vital Signs Date Time Temp Pulse Resp B/P Pulse Ox O2 Delivery O2 Flow Rate FiO2 12/03/16 07:53 99.4 93 18 134/63 100 12/03/16 07:53 100 Room Air 12/03/16 07:27 97 21 12/03/16 06:20 91 12/03/16 04:19 85 12/03/16 03:41 96 Room Air 12/03/16 03:40 98.4 88 18 99/53 96 12/03/16 03:00 85 12/03/16 02:00 86 12/03/16 01:02 86 12/03/16 00:21 89 16 102/51 96 12/03/16 00:07 86 12/02/16 23:59 98 12/02/16 23:58 96 Room Air 12/02/16 23:00 98.2 97 18 103/52 96 12/02/16 22:11 100 12/02/16 21:00 97 12/02/16 20:41 97 Room Air 12/02/16 20:39 98.0 102 22 120/56 97 12/02/16 20:27 18 12/02/16 20:06 96 21 12/02/16 20:00 100 12/02/16 19:00 105 12/02/16 18:00 96 12/02/16 17:30 96 Room Air 12/02/16 17:30 104 12/02/16 17:30 98.0 105 20 117/56 96 Arterial Line 12/02/16 12:00 94 Nasal Cannula 2.00 12/02/16 12:00 108 12/02/16 12:00 98.3 108 16 126/54 94 110/41 Labs: Laboratory Tests Test 12/03/16 05:00 White Blood Count 5.0 TH/MM3 (4.0-11.0) Red Blood Count 2.77 MIL/MM3 (4.50-5.90) Hemoglobin 8.5 GM/DL (13.0-17.0) Hematocrit 24.6 % (39.0-51.0) Mean Corpuscular Volume 88.8 FL (80.0-100.0) Mean Corpuscular Hemoglobin 30.5 PG (27.0-34.0) Mean Corpuscular Hemoglobin 34.4 % Concent (32.0-36.0) Red Cell Distribution Width 13.8 % (11.6-17.2) Platelet Count 128 TH/MM3 (150-450) Mean Platelet Volume 8.3 FL (7.0-11.0) Neutrophils (%) (Auto) 68.0 % (16.0-70.0) Lymphocytes (%) (Auto) 9.3 % (9.0-44.0) Monocytes (%) (Auto) 20.6 % (0.0-8.0) Eosinophils (%) (Auto) 1.4 % (0.0-4.0) Basophils (%) (Auto) 0.7 % (0.0-2.0) Neutrophils # (Auto) 3.4 TH/MM3 (1.8-7.7) Lymphocytes # (Auto) 0.5 TH/MM3 (1.0-4.8) Monocytes # (Auto) 1.0 TH/MM3 (0-0.9) Eosinophils # (Auto) 0.1 TH/MM3 (0-0.4) Basophils # (Auto) 0.0 TH/MM3 (0-0.2) CBC Comment DIFF FINAL Differential Comment Sodium Level 134 MEQ/L (136-145) Potassium Level 4.3 MEQ/L (3.5-5.1) Chloride Level 103 MEQ/L (98-107) Carbon Dioxide Level 24.9 MEQ/L (21.0-32.0) Anion Gap 6 MEQ/L (5-15) Blood Urea Nitrogen 15 MG/DL (7-18) Creatinine 0.84 MG/DL (0.60-1.30) Estimat Glomerular Filtration 87 ML/MIN (>89) Rate Random Glucose 118 MG/DL (74-106) Calcium Level 7.4 MG/DL (8.5-10.1) Protein Corrected Calcium 9.0 MG/DL (8.5-10.1) Magnesium Level 1.9 MG/DL (1.5-2.5) Total Protein 4.3 GM/DL (6.4-8.2) Result Diagram: 12/03/16 0500 12/03/16 0500 (1) Coronary artery disease Plan: on BB , statin , ASA on hold for surgery on Sunday (2) Hyperlipemia Plan: on statin (3) Hypertension Plan: stable (4) severe rheumatoid arthritis (5) hx of prostate CA Plan: prn pain meds, celebrex on hold (6) anxiety / depression / mild dementia Plan: continue home meds, environmental cues Jose Antonio Pires MD Dec 03, 2016 10:50
[2016-12-03] MEDS: MIRTAZAPINE 15 MG TAB PO SCH (20:45)
[2016-12-03] MEDS: TERAZOSIN HCL 1 MG CAP PO SCH (20:45)
[2016-12-03] MEDS: ATORVASTATIN 40 MG TAB PO SCH (20:46)
[2016-12-03] MEDS: SENNOSIDES 8.6 MG TAB PO SCH (20:58)
[2016-12-03] MEDS: traZODone HCL 50 MG TAB PO SCH (21:06)
[2016-12-03] MEDS: LACTATED RINGER'S 1000 ML IV SCH (23:15)
[2016-12-04] VITALS (23 sets, daily range): BP systolic 120–141; BP diastolic 58–72; PULSE 74–117; RESP 16–20; TEMP 98.1–98.5; O2SAT 94–97
[2016-12-04] MEDS: PANTOPRAZOLE SOD 40 MG DELAYED RELEASE TAB PO SCH (05:52)
[2016-12-04] MEDS: NITROGLYCERIN 2% OINT 1 GM PACKET TOPICAL SCH (05:52)
[2016-12-04] MEDS: INSULIN ASPART SUPPLEMENTAL SCALE SQ SCH ×4 (06:01→20:45)
[2016-12-04] MEDS: RESP: ALBUTEROL 2.5 MG/IPRATROPIUM 0.5 MG NEB (SCH) NEB ×2 (07:47→13:49)
[2016-12-04] MEDS ORDERED: METOPROLOL TARTRATE 25 MG TAB PO SCH (09:00)
[2016-12-04] MEDS: MAGNESIUM HYDROXIDE SUSP 30 ML CUP PO SCH (09:33)
[2016-12-04] MEDS: ASPIRIN 81 MG CHEW TAB PO SCH (09:34)
[2016-12-04] MEDS: CLOPIDOGREL 75 MG TAB PO SCH (09:34)
[2016-12-04] MEDS: SODIUM CHLORIDE 0.9% FLUSH 5 ML FLUSH IV FLUSH SCH ×2 (09:34→20:44)
[2016-12-04] MEDS: AMIODARONE 200 MG TAB PO SCH ×2 (09:34→20:41)
[2016-12-04] MEDS: DOCUSATE SODIUM 100 MG CAP PO SCH ×2 (09:34→20:43)
[2016-12-04] MEDS: MULTIVITAMINS/MINERALS THERAPEUTIC TAB PO SCH (09:34)
[2016-12-04] MEDS: POLYETHYLENE GLYCOL 17 GM PKG PO SCH (09:34)
--- NOTE | 2016-12-04 12:39 | PD.CAR.PN ---
CVT Progress Note CVT: POD #: 3 Subjective/Hospital Course: 81 male , transferred from [facility], recent chest pain s/p Heart Cath by Dr Halle Carrion LAD 90% stenosis , diagonal; 90% , circ 90% marginal 90% RCA 90% EF 60% PMH: HTN, HLP, prostate CA, severe RA , CAD HX V tach on plavix at home, initial pru 88/ now 168 scheduled for CABG on wednesday 11/29 doing well, no complaints 11/30 had some confusion last pm, some hallucinations completely alert and oriented this am take remeron and trazadone at night Dr Pires spoke with pt and , they want to proceed with surgery PRU 201 12/01 Procedure: 1. Urgent Off-pump Coronary Artery Bypass Grafting x 3 with left internal mammary artery (GIANG) to left anterior descending (LAD), reverse saphenous vein graft to OM1, reverse saphenous vein graft to the distal RCA 2. Right Leg Endoscopic Vein [place] 3. Intraoperative Vein Mapping. 12/02 Doing well Continues to have intermittent hallucinations as preop, but realizes that's what they are. Likely some component of sun-downing Wean Ben today Transfer CPCU Maintain CT low-dose beta mary 12/[address] dumped with ambulation D/C CT tomorrow Discharge planning 12/04 still need assistance with getting OOB will eval for Rehab placement chest tubes removed without difficulty on RA, gentle diuresis increase BB on ASA, Plavix, BB and statin Objective: GENERAL: SKIN: Warm and dry./ prevena dressing to chest , incision right leg intact and well approximated HEAD: Normocephalic. EYES: No scleral icterus. No injection or drainage. NECK: Supple, trachea midline. No JVD or lymphadenopathy. CARDIOVASCULAR: Regular rate and rhythm without murmurs, gallops, or rubs. mild general edema RESPIRATORY: Breath sounds equal bilaterally. No accessory muscle use. GASTROINTESTINAL: Abdomen soft, non-tender, nondistended. MUSCULOSKELETAL: No cyanosis, or edema. BACK: Nontender without obvious deformity. No CVA tenderness. Vital Signs Date Time Temp Pulse Resp B/P Pulse Ox O2 Delivery O2 Flow Rate FiO2 12/04/16 12:00 85 12/04/16 11:00 83 12/04/16 11:00 98.2 85 20 120/58 95 12/04/16 10:00 109 12/04/16 09:00 112 12/04/16 08:00 117 12/04/16 07:49 97 21 12/04/16 07:00 113 12/04/16 07:00 54 Room Air 12/04/16 07:00 98.2 108 18 138/72 94 12/04/16 06:00 100 12/04/16 05:00 81 12/04/16 04:00 84 12/04/16 04:00 98.1 84 16 132/63 94 12/04/16 01:00 84 12/04/16 00:00 82 12/03/16 23:00 98.1 82 16 115/57 95 12/03/16 23:00 82 12/03/16 22:00 80 12/03/16 20:00 99.6 95 16 135/61 100 12/03/16 19:54 96 21 12/03/16 19:00 100 Room Air 12/03/16 19:00 95 12/03/16 18:00 89 12/03/16 17:00 84 12/03/16 16:36 99.5 86 16 109/55 96 12/03/16 16:00 87 12/03/16 15:00 86 12/03/16 14:00 92 12/03/16 13:00 103 Result Diagram: 12/03/16 0500 12/03/16 0500 Telemetry: NSR (1) Coronary artery disease Plan: increase BB , statin , ASA , plavix aggressive pulm toileting ezpap, acapella ambulate with PT gentle diuresis chest tube removal eval for rehab placement (2) Hyperlipemia Plan: on statin (3) Hypertension Plan: stable (4) severe rheumatoid arthritis (5) hx of prostate CA Plan: prn pain meds, celebrex on hold (6) anxiety / depression / mild dementia Plan: continue home meds, environmental cues [place] Bui Dec 04, 2016 12:39
[2016-12-04] MEDS ORDERED: POTASSIUM CHLORIDE 10 MEQ CONTROLLED RELEASE TAB PO ONE (12:45)
[2016-12-04] MEDS: METOPROLOL TARTRATE 25 MG TAB PO SCH ×2 (12:57→17:32)
[2016-12-04] MEDS ORDERED: FUROSEMIDE 20 MG/2 ML VIAL IV PUSH ONE (13:00)
[2016-12-04] MEDS: TERAZOSIN HCL 1 MG CAP PO SCH (20:41)
[2016-12-04] MEDS: MIRTAZAPINE 15 MG TAB PO SCH (20:42)
[2016-12-04] MEDS: traZODone HCL 50 MG TAB PO SCH (20:43)
[2016-12-04] MEDS: ATORVASTATIN 40 MG TAB PO SCH (20:44)
[2016-12-04] MEDS: SENNOSIDES 8.6 MG TAB PO SCH (20:44)
--- NOTE | 2016-12-04 22:10 | EKG ---
Date Performed: 12/02/2016 Time Performed: 04:25:18 PTAGE: 81 years EKG: Sinus tachycardia Nonspecific ST and T wave abnormalities NO PREVIOUS TRACING DOCTOR: Codey Candelaria Interpretating Date/Time 12/04/2016 22:08:57
[2016-12-05] VITALS (25 sets, daily range): BP systolic 108–162; BP diastolic 55–78; PULSE 77–99; RESP 18–20; TEMP 98.1–98.4; O2SAT 94–96
[2016-12-05] MEDS: PANTOPRAZOLE SOD 40 MG DELAYED RELEASE TAB PO SCH (05:00)
[2016-12-05] MEDS: INSULIN ASPART SUPPLEMENTAL SCALE SQ SCH ×4 (05:02→20:55)
--- NOTE | 2016-12-05 07:15 | RADRPT ---
EXAM DATE/TIME: 12/05/2016 06:20 [facility] COMPARISON: CHEST SINGLE AP, December 02, 2016, 2:49. INDICATIONS : Post chest tube removal. MEDICAL HISTORY : Hypertension. Gastroesophageal reflux disease. SURGICAL HISTORY : CABG. ENCOUNTER: Subsequent ACUITY: 4 - 6 days PAIN SCORE: Non-responsive. LOCATION: Bilateral chest FINDINGS: A single view of the chest demonstrates small bilateral pleural effusions and bibasilar densities. Pr evious median sternotomy. Left subclavian central line stable position. Removal of chest tubes withou t pneumothorax.. The cardiomediastinal contours are unremarkable. Osseous structures are intact. CONCLUSION: 1. No pneumothorax. 2. Small bilateral pleural effusions and probable bibasilar atelectasis. 3. Status post CABG. Gera Martinez MD on December 05, 2016 at 7:13 Board Certified Radiologist. This report was verified electronically.
[2016-12-05] MEDS: AMIODARONE 200 MG TAB PO SCH ×2 (08:14→20:54)
[2016-12-05] MEDS: MULTIVITAMINS/MINERALS THERAPEUTIC TAB PO SCH (08:14)
[2016-12-05] MEDS: ASPIRIN 81 MG CHEW TAB PO SCH (08:14)
[2016-12-05] MEDS: SODIUM CHLORIDE 0.9% FLUSH 5 ML FLUSH IV FLUSH SCH ×2 (08:14→20:55)
[2016-12-05] MEDS: CLOPIDOGREL 75 MG TAB PO SCH (08:14)
[2016-12-05] MEDS: MAGNESIUM HYDROXIDE SUSP 30 ML CUP PO SCH (08:15)
[2016-12-05] MEDS: DOCUSATE SODIUM 100 MG CAP PO SCH ×2 (08:15→20:54)
[2016-12-05] MEDS: POLYETHYLENE GLYCOL 17 GM PKG PO SCH (08:15)
[2016-12-05] MEDS: METOPROLOL TARTRATE 25 MG TAB PO SCH (08:15)
[2016-12-05] MEDS ORDERED: AMIO200T PO (09:38)
[2016-12-05] MEDS ORDERED: METO25TA3 PO (09:38)
[2016-12-05] MEDS ORDERED: POTA-163 PO (09:38)
[2016-12-05] MEDS ORDERED: LIPI40TA PO (09:38)
[2016-12-05] MEDS ORDERED: FURO1TAB60 PO (09:38)
[2016-12-05] MEDS ORDERED: DOCU1CAP39 PO (09:38)
--- NOTE | 2016-12-05 10:01 | HHI.DS ---
Discharge Summary Admission Date Nov 27, 2016 at 16:00 Discharge Date: Dec 05, 2016 Admitting Diagnosis chest pain/ s/p heart cath multi vessel disease (1) Coronary artery disease Diagnosis: Principal (2) Hyperlipemia Diagnosis: Principal (3) Hypertension Diagnosis: Principal (4) severe rheumatoid arthritis Diagnosis: Principal (5) hx of prostate CA Diagnosis: Principal (6) anxiety / depression / mild dementia Diagnosis: Principal (7) S/P CABG x 3 Diagnosis: Secondary Procedures 12/01 Urgent Off-pump Coronary Artery Bypass Grafting x 3 with left internal mammary artery (GIANG) to left anterior descending (LAD), reverse saphenous vein graft to OM1, reverse saphenous vein graft to the distal RCA, Right Leg Endoscopic Vein [place] Brief History 81 male , transferred from [facility], recent chest pain s/p Heart Cath by Dr Halle Carrion LAD 90% stenosis , diagonal; 90% , circ 90% marginal 90% RCA 90% EF 60% PMH: HTN, HLP, prostate CA, severe RA , CAD HX V tach CBC/BMP: 12/03/16 0500 12/03/16 0500 Significant Findings Laboratory Tests Test 12/03/16 05:00 Red Blood Count 2.77 MIL/MM3 (4.50-5.90) Hemoglobin 8.5 GM/DL (13.0-17.0) Hematocrit 24.6 % (39.0-51.0) Platelet Count 128 TH/MM3 (150-450) Monocytes (%) (Auto) 20.6 % (0.0-8.0) Lymphocytes # (Auto) 0.5 TH/MM3 (1.0-4.8) Monocytes # (Auto) 1.0 TH/MM3 (0-0.9) Sodium Level 134 MEQ/L (136-145) Estimat Glomerular Filtration 87 ML/MIN (>89) Rate Random Glucose 118 MG/DL (74-106) Calcium Level 7.4 MG/DL (8.5-10.1) Total Protein 4.3 GM/DL (6.4-8.2) Imaging Last Impressions Chest X-Ray 12/05/16 0600 Signed Impressions: Service Date/Time: Monday, December 05, 2016 06:20 - CONCLUSION: 1. No pneumothorax. 2. Small bilateral pleural effusions and probable bibasilar atelectasis. 3. Status post CABG. Gera Martinez MD Lower Extremity Ultrasound 11/28/16 0000 Signed Impressions: Service Date/Time: Monday, November 28, 2016 15:11 - CONCLUSION: 1. Venous mapping as above Nakul Napoles MD Carotid Artery Ultrasound 11/28/16 0000 Signed Impressions: Service Date/Time: Monday, November 28, 2016 14:39 - CONCLUSION: Mild plaque at the carotid bulb regions without a significant stenosis. Jose Juan Johnson MD PE at Discharge GENERAL: SKIN: Warm and dry./ prevena to chest incision intact to right lower leg HEAD: Normocephalic. EYES: No scleral icterus. No injection or drainage. NECK: Supple, trachea midline. No JVD or lymphadenopathy. CARDIOVASCULAR: Regular rate and rhythm without murmurs, gallops, or rubs. +1 edema lower ext RESPIRATORY: Breath sounds equal bilaterally. No accessory muscle use. diminished in bases GASTROINTESTINAL: Abdomen soft, non-tender, nondistended. MUSCULOSKELETAL: No cyanosis, or edema. BACK: Nontender without obvious deformity. No CVA tenderness. Hospital Course 11/29 doing well, no complaints 11/30 had some confusion last pm, some hallucinations completely alert and oriented this am take remeron and trazadone at night Dr Pires spoke with pt and , they want to proceed with surgery PRU 201 12/01 Procedure: 1. Urgent Off-pump Coronary Artery Bypass Grafting x 3 with left internal mammary artery (GIANG) to left anterior descending (LAD), reverse saphenous vein graft to OM1, reverse saphenous vein graft to the distal RCA 2. Right Leg Endoscopic Vein [place] 3. Intraoperative Vein Mapping. 12/02 Doing well Continues to have intermittent hallucinations as preop, but realizes that's what they are. Likely some component of sun-downing Wean Ben today Transfer CPCU Maintain CT low-dose beta mary 12/[address] dumped with ambulation D/C CT tomorrow Discharge planning 12/04 still need assistance with getting OOB will eval for Rehab placement chest tubes removed without difficulty on RA, gentle diuresis increase BB on ASA, Plavix, BB and statin 12/05 on room air, CXR noted, continue IS acapella BB increased, gentle diuresis eval for discharge to rehab today Pt Condition on Discharge: Good Discharge Disposition: Rehab Inpatient Discharge Instructions DIET: Follow Instructions for: Heart Healthy Diet Activities you can perform: Full Weight Bearing, Shower Only-No Bath Activities to avoid: Strenuous Activity, Driving Additional Activity Instructio: no lifting >10 lbs or gallon of milk Follow up Referrals: Cardiology - [address] Cristian Carrion PCP Follow-up - [address] Wilson Surgical - 2 Weeks with Jose Antonio Pires MD New Medications: Furosemide (Lasix) 40 Mg Tab 40 MG PO DAILY edema #7 Ref 0 TAB Potassium Chloride ER (Potassium Chloride ER) 20 Meq Tab 20 MEQ PO DAILY Electrolyte Replacement #7 Ref 0 TAB Amiodarone (Amiodarone) 200 Mg Tab 200 MG PO Q12HR heart rhythm #28 Ref 0 TAB Atorvastatin (Lipitor) 40 Mg Tab 40 MG PO HS Cholesterol Management #30 Ref 2 TAB Docusate Sodium (Dok) 100 Mg Cap 100 MG PO BID hold for diarrhea Constipation #30 CAP Metoprolol Tartrate (Metoprolol Tartrate) 25 Mg Tab 50 MG PO BID Blood Pressure Management #60 Ref 2 TAB Continued Medications: Aspirin (Aspirin) 81 Mg Chew 81 MG CHEW DAILY Ref 0 TAB Bimatoprost Opth Drops (Lumigan Opth Drops) 0.01% Soln 1 DROP EACH EYE HS Intraocular Pressure #1 Ref 0 BOTTLE Celecoxib (Celebrex) 200 Mg Cap 200 MG PO DAILY Pain Management Ref 0 CAP Clopidogrel (Clopidogrel) 75 Mg Tab 75 MG PO DAILY Blood Clot Prevention #30 Ref 0 TAB Metoprolol Tartrate (Metoprolol Tartrate) 25 Mg Tab 25 MG PO HS pt takes 1/2 of the 25mg po tab at night PRN SEE DOSE INSTRUCTIONS # 30 Ref 0 TAB Mirtazapine (Mirtazapine) 30 Mg Tab 30 MG PO HS Depression Control #30 Ref 0 TAB Multiple Vitamin (Multiple Vitamin) 1 Tab 1 TAB PO DAILY Nutritional Supplement Ref 0 TAB Pantoprazole (Pantoprazole) 40 Mg Tab 40 MG PO DAILY Reflux #30 Ref 0 TAB Terazosin (Terazosin) 2 Mg Cap 2 MG PO HS #30 Ref 0 CAP Valsartan (Valsartan) 160 Mg Tab 160 MG PO DAILY #30 Ref 0 TAB Discontinued Medications: Fish Oil-Cholecalciferol (Fish Oil + D3) 1,200-1,000 Mg-Unit Cap 1 CAP PO DAILY Nutritional Supplement #30 Ref 0 CAP Lorazepam (Lorazepam) 0.5 Mg Tab 0.5 MG PO DIRECTED PRN ANXIETY Ref 0 TAB Nitroglycerin Patch 24 HR (Nitroglycerin Patch 24 HR) 0.2 Mg/Hr Patch 0.2 MG T-DERMAL DAILY Chest Pain #30 Ref 0 PATCH Turmeric (Curcuma Longa) (Turmeric) 500 Mg Cap 500 MG PO DAILY Nutritional Supplement Ref 0 CAP [place] Bui Dec 05, 2016 10:01
[2016-12-05] MEDS ORDERED: METOPROLOL TARTRATE 25 MG TAB PO ONE (10:15)
[2016-12-05] MEDS ORDERED: FUROSEMIDE 40 MG/4 ML VIAL IV PUSH ONE (10:15)
[2016-12-05] MEDS ORDERED: POTASSIUM CHLORIDE 20 MEQ CONTROLLED RELEASE TAB PO ONE (10:15)
[2016-12-05] MEDS: METOPROLOL TARTRATE 50 MG TAB PO SCH (20:54)
[2016-12-05] MEDS: ATORVASTATIN 40 MG TAB PO SCH (20:54)
[2016-12-05] MEDS: TERAZOSIN HCL 1 MG CAP PO SCH (20:54)
[2016-12-05] MEDS: MIRTAZAPINE 15 MG TAB PO SCH (20:54)
[2016-12-05] MEDS: SENNOSIDES 8.6 MG TAB PO SCH (20:55)
[2016-12-05] MEDS: traZODone HCL 50 MG TAB PO SCH (21:12)
[2016-12-06] VITALS (12 sets, daily range): BP systolic 123–161; BP diastolic 60–74; PULSE 73–91; RESP 18; TEMP 97.5–98.3; O2SAT 94–96
[2016-12-06] MEDS: PANTOPRAZOLE SOD 40 MG DELAYED RELEASE TAB PO SCH (06:00)
[2016-12-06] MEDS: INSULIN ASPART SUPPLEMENTAL SCALE SQ SCH ×2 (06:01→11:00)
[2016-12-06] MEDS: POLYETHYLENE GLYCOL 17 GM PKG PO SCH (09:37)
[2016-12-06] MEDS: AMIODARONE 200 MG TAB PO SCH (09:38)
[2016-12-06] MEDS: MULTIVITAMINS/MINERALS THERAPEUTIC TAB PO SCH (09:38)
[2016-12-06] MEDS: MAGNESIUM HYDROXIDE SUSP 30 ML CUP PO SCH (09:38)
[2016-12-06] MEDS: CLOPIDOGREL 75 MG TAB PO SCH (09:38)
[2016-12-06] MEDS: SODIUM CHLORIDE 0.9% FLUSH 5 ML FLUSH IV FLUSH SCH (09:39)
[2016-12-06] MEDS: ASPIRIN 81 MG CHEW TAB PO SCH (09:39)
[2016-12-06] MEDS: DOCUSATE SODIUM 100 MG CAP PO SCH (09:39)
[2016-12-06] MEDS: METOPROLOL TARTRATE 50 MG TAB PO SCH (09:39)
[2016-12-06] MEDS ORDERED: METOPROLOL TARTRATE 25 MG TAB PO ONE (09:45)
[2016-12-06] MEDS ORDERED: BENZOCAINE-MENTHOL (SUGAR FREE) 15 MG-3.6 MG LOZENGE BUCCAL PRN (09:45)
[2016-12-06] MEDS ORDERED: METO-426 PO (09:46)
--- NOTE | 2016-12-06 10:25 | PD.CAR.PN ---
CVT Progress Note Subjective/Hospital Course: 81 male , transferred from [facility], recent chest pain s/p Heart Cath by Dr Halle Carrion LAD 90% stenosis , diagonal; 90% , circ 90% marginal 90% RCA 90% EF 60% PMH: HTN, HLP, prostate CA, severe RA , CAD HX V tach on plavix at home, initial pru 88/ now 168 scheduled for CABG on wednesday 11/29 doing well, no complaints 11/30 had some confusion last pm, some hallucinations completely alert and oriented this am take remeron and trazadone at night Dr Pires spoke with pt and , they want to proceed with surgery PRU 201 12/01 Procedure: 1. Urgent Off-pump Coronary Artery Bypass Grafting x 3 with left internal mammary artery (GIANG) to left anterior descending (LAD), reverse saphenous vein graft to OM1, reverse saphenous vein graft to the distal RCA 2. Right Leg Endoscopic Vein [place] 3. Intraoperative Vein Mapping. 12/02 Doing well Continues to have intermittent hallucinations as preop, but realizes that's what they are. Likely some component of sun-downing Wean Ben today Transfer CPCU Maintain CT low-dose beta mary 12/[address] dumped with ambulation D/C CT tomorrow Discharge planning 12/04 still need assistance with getting OOB will eval for Rehab placement chest tubes removed without difficulty on RA, gentle diuresis increase BB on ASA, Plavix, BB and statin 12/06 waiting on rehab bed , stable for discharge HR 90 will increase BB Objective: GENERAL: SKIN: Warm and dry./ prevena to chest HEAD: Normocephalic. EYES: No scleral icterus. No injection or drainage. NECK: Supple, trachea midline. No JVD or lymphadenopathy. CARDIOVASCULAR: Regular rate and rhythm without murmurs, gallops, or rubs. + 1 edema lower ext RESPIRATORY: Breath sounds equal bilaterally. No accessory muscle use. GASTROINTESTINAL: Abdomen soft, non-tender, nondistended. MUSCULOSKELETAL: No cyanosis, or edema. BACK: Nontender without obvious deformity. No CVA tenderness. Vital Signs Date Time Temp Pulse Resp B/P Pulse Ox O2 Delivery O2 Flow Rate FiO2 12/06/16 07:00 97.5 87 18 161/74 94 12/06/16 06:00 78 12/06/16 05:00 80 12/06/16 04:00 73 12/06/16 03:00 75 12/06/16 03:00 98.3 76 18 156/74 96 12/06/16 02:00 75 12/06/16 01:00 81 12/06/16 00:00 73 12/05/16 23:00 98.2 80 18 162/70 95 12/05/16 23:00 77 12/05/16 22:00 79 12/05/16 21:00 91 12/05/16 20:00 96 12/05/16 19:00 90 12/05/16 19:00 98.4 92 20 139/62 94 12/05/16 19:00 Room Air 94 12/05/16 18:00 91 12/05/16 17:00 91 12/05/16 16:00 87 12/05/16 15:00 86 12/05/16 15:00 98.2 86 18 110/78 96 12/05/16 14:00 87 12/05/16 13:00 86 12/05/16 12:00 80 12/05/16 11:00 87 12/05/16 11:00 98.2 82 18 108/55 96 Result Diagram: 12/03/16 0500 12/03/16 0500 Telemetry: NSR Plan: await rehab bed (1) Coronary artery disease Plan: increase BB , statin , ASA , plavix aggressive pulm toileting ezpap, acapella ambulate with PT gentle diuresis chest tube removal eval for rehab placement (2) Hyperlipemia Plan: on statin (3) Hypertension Plan: stable (4) severe rheumatoid arthritis (5) hx of prostate CA Plan: prn pain meds, celebrex on hold (6) anxiety / depression / mild dementia Plan: continue home meds, environmental cues [place] Bui Dec 06, 2016 10:25
[2016-12-06] MEDS ORDERED: FUROSEMIDE 40 MG TAB PO ONE (10:30)
[2016-12-06] MEDS ORDERED: POTASSIUM CHLORIDE 20 MEQ CONTROLLED RELEASE TAB PO ONE (10:30)
[2016-12-06] MEDS: ACETAMINOPHEN/HYDROcodone 325 MG/5 MG TAB PO PRN (12:16)
[2017-01-01] MEDS ORDERED: WHEEMIS3 (13:09)
[2017-01-01] MEDS ORDERED: GETGO ROLLING W1 MI1 (13:09)
[2017-01-05] MEDS ORDERED: COMMODE 3-IN-11 MIS (07:48)
[2017-01-08] MEDS ORDERED: BETH10 PO (08:34)
[2017-01-08] MEDS ORDERED: CLOP75TA PO (08:34)
[2017-01-08] MEDS ORDERED: LUMI0.01 EACH EYE (08:34)
[2017-01-08] MEDS ORDERED: BACT800T5 PO (08:34)
[2017-01-08] MEDS ORDERED: MULTTAB67 PO (08:34)
[2017-01-08] MEDS ORDERED: AMIO200T PO (08:34)
[2017-01-08] MEDS ORDERED: SODI1TAB PO (08:34)
[2017-01-08] MEDS ORDERED: MIRT30TA PO (08:34)
[2017-01-08] MEDS ORDERED: DOCU1CAP39 PO (08:34)
[2017-01-08] MEDS ORDERED: FLUD.1 PO (08:34)
[2017-01-08] MEDS ORDERED: PANT40TA3 PO (08:34)
[2017-01-08] MEDS ORDERED: MEGE40SU PO (08:34)
[2017-01-08] MEDS ORDERED: ASPI81CH CHEW (08:34)
[2017-01-08] MEDS ORDERED: NYST15T TOPICAL (08:34)
[2017-01-08] MEDS ORDERED: LEVA750T PO (08:34)
[2017-01-08] MEDS ORDERED: ACET325T PO (08:34)
[2017-01-08] MEDS ORDERED: [UNRECOGNIZED DRUG - CODE] TOPICAL (08:44)
[2017-01-08] MEDS ORDERED: LIPI40TA PO (13:02)
[2017-01-09] MEDS ORDERED: TAMS5CAP PO (14:46)
[2017-01-22] MEDS ORDERED: METO25TA3 PO (11:45)
[2017-01-22] MEDS ORDERED: TRAZ50TA12 PO (11:45)
[2017-01-22] MEDS ORDERED: COLA100C3 PO (11:45)
[2017-01-22] MEDS ORDERED: CELE200C PO (11:45)
[2017-01-22] MEDS ORDERED: PLAV75TA29 PO (11:45)
[2017-01-22] MEDS ORDERED: BETH10 PO (14:36)
[2017-01-30] MEDS ORDERED: PROS5TAB PO (12:57)
== END 2016-12-06 12:46 | DRG 236 ==
LOC: HCPC 16:00 → HCVR 12-01 11:50 → HCPC 12-02 16:40
PROVIDERS: ADMIT Thoracic Surgery (Cardiothoracic Vascular Surgery); ATTEND Thoracic Surgery (Cardiothoracic Vascular Surgery)
PROC: 06BP4ZZ Excision of Right Saphenous Vein, Percutaneous Endoscopic Approach (ICD-10-PCS; 2016-12-01)
PROC: 30233N1 Transfusion of Nonautologous Red Blood Cells into Peripheral Vein, Percutaneous Approach (ICD-10-PCS; 2016-12-01)
PROC: 02100Z9 Bypass Coronary Artery, One Artery from Left Internal Mammary, Open Approach (ICD-10-PCS; principal; 2016-12-01 06:58)
PROC: 021109W Bypass Coronary Artery, Two Arteries from Aorta with Autologous Venous Tissue, Open Approach (ICD-10-PCS; 2016-12-01 06:58)
DX: I25.110 Atherosclerotic heart disease of native coronary artery with unstable angina pectoris (principal); F03.90 Unspecified dementia, unspecified severity, without behavioral disturbance, psychotic disturbance, mood disturbance, and anxiety; I11.9 Hypertensive heart disease without heart failure; E78.5 Hyperlipidemia, unspecified; M06.9 Rheumatoid arthritis, unspecified; F32.9 Major depressive disorder, single episode, unspecified; F41.9 Anxiety disorder, unspecified; E11.9 Type 2 diabetes mellitus without complications; R44.3 Hallucinations, unspecified; Z85.46 Personal history of malignant neoplasm of prostate
CPT/HCPCS: 36430; 71010; 76937; 80048; 80053; 81001; 82948; 83735; 84155; 85025; 85027; 85576; 85610; 86850; 86900; 86901; 86920; 87641; 93005; 93306; 93880; 93970; 93998; 94002; 94010; 94150; 94640; 94664; 94667; 94668; C1768; C9399; J0131; J0171; J0461; J0690; J1644; J1885; J1940; J2250; J2370; J2440; J2720; J3010; J3370; J3475; J3480; J7060; J7120; P9016; P9045

== ENCOUNTER 2016-12-14 22:37 | Inpatient (IN) | payer MEDICARE ==
[~2016-12-14] VITALS: Ht 167.6 cm; Wt 82.1 kg
[2016-12-14 21:55] VITALS: O2SAT 97
[~2016-12-14 22:37] MED LIST: AMIO200T PO; ASPI81CH CHEW; CELE200C PO; CLOP75TA PO; DOCU1CAP39 PO; FURO1TAB60 PO; LIPI40TA PO; LUMI0.01 EACH EYE; METO-426 PO; METO25TA3 PO; MIRT30TA PO; MULTTAB67 PO; PANT40TA3 PO; POTA-163 PO; TERA2CAP3 PO; VALS1TAB65 PO
[2016-12-14 23:20] VITALS: BP 140/65; PULSE 92; RESP 20; TEMP 95.9; O2SAT 95
[2016-12-14] MEDS ORDERED: SODIUM CHLORIDE 0.9% FLUSH 5 ML FLUSH FLUSH PRN (23:30)
[2016-12-14] MEDS ORDERED: NALOXONE HCL 0.4 MG/ML AMP IV PRN (23:30)
[2016-12-14] MEDS ORDERED: SODIUM CHLOR 0.9% 1000 ML INJ 1,000 ML IV ONE (23:30)
[2016-12-14] MEDS ORDERED: LEVOFLOXACIN 500 MG PREMIX INJ 100 ML IV SCH (23:45)
--- NOTE | 2016-12-14 23:55 | HHI.HP ---
HPI Service [facility] Hospitalists Primary Care Physician Non-Staff Admission Diagnosis Diagnoses: Chief Complaint: Seizures Travel History International Travel<30 Days: No Contact w/Intl Traveler <30 Da: No History of Present Illness 81-year-old male with a history of hypertension, hyperlipidemia, CAD, V. tach, arthritis and prostate cancer was originally admitted to [facility] with chest pain, underwent a cardiac catheter and was found to have significant coronary artery stenosis. Patient was then transferred to [facility] for a triple bypass. Patient was doing well and was then sent to [facility] for rehabilitation. Earlier today patient was seen and had complaints of increased dependent edema and expiratory wheezes, with a persistent cough. Chest x-ray was ordered and showed cardiomegaly with increased pulmonary vessels polarity and small pleural effusions bilaterally. Patient was started on DuoNeb's and given Lasix IV. Labs were done patient was found to be have a sodium of 124. At about 9:30 tonight patient's family stated he became very rigid and had seizure-like activity for 3 seconds. Stat labs were done sodium level 122. 15 minutes later patient had another seizure episode and [facility] was called. Patient was then transferred to a medical floor. Patient was seen and examined. He is alert and oriented 3. He denies any chest pain, shortness of breath, fever or chills. He does complain of a significant hacking cough with no sputum production. Review of Systems Constitutional: DENIES: Fever, Chills, Dizziness Ears, nose, mouth, throat: DENIES: Sinus Pain Respiratory: COMPLAINS OF: Cough, DENIES: Sputum production, Shortness of breath Cardiovascular: DENIES: Chest pain Gastrointestinal: DENIES: Constipation, Diarrhea, Nausea, Vomiting Genitourinary: DENIES: Hematuria, Dysuria Musculoskeletal: DENIES: Back pain, Neck pain Integumentary: DENIES: Rash Hematologic/lymphatic: DENIES: Lymphadenopathy Immunologic/allergic: DENIES: Urticaria Neurologic: DENIES: Headache Past Family Social History Past Medical History CABG COPD Prostate cancer Hypertension Rheumatoid arthritis Hyperlipidemia Past Surgical History CABG Right inguinal hernia repair 1955 Seed implant 2003 Bilateral cataract surgery Skin cancer removed from nose Reported Medications Reported Meds & Active Scripts Active Metoprolol Tartrate 75 Mg Tab 75 Mg PO BID Potassium Chloride ER (Potassium Chloride) 20 Meq Tab 20 Meq PO DAILY Lasix (Furosemide) 40 Mg Tab 40 Mg PO DAILY Dok (Docusate Sodium) 100 Mg Cap 100 Mg PO BID hold for diarrhea Lipitor (Atorvastatin Calcium) 40 Mg Tab 40 Mg PO HS Amiodarone (Amiodarone HCl) 200 Mg Tab 200 Mg PO Q12HR Reported Aspirin 81 Mg Chew 81 Mg CHEW DAILY Multiple Vitamin 1 Tab 1 Tab PO DAILY Celebrex (Celecoxib) 200 Mg Cap 200 Mg PO DAILY Clopidogrel (Clopidogrel Bisulfate) 75 Mg Tab 75 Mg PO DAILY Terazosin (Terazosin HCl) 2 Mg Cap 2 Mg PO HS Valsartan 160 Mg Tab 160 Mg PO DAILY Pantoprazole (Pantoprazole Sodium) 40 Mg Tab 40 Mg PO DAILY Metoprolol Tartrate 25 Mg Tab 25 Mg PO HS PRN pt takes 1/2 of the 25mg po tab at night Lumigan Opth Drops (Bimatoprost) 0.01% Soln 1 Drop EACH EYE HS Mirtazapine 30 Mg Tab 30 Mg PO HS Allergies: Coded Allergies: HMG-CoA Reductase Inhibitors (Verified Adverse Reaction, Unknown, 12/13/16) Active Ordered Medications Current Medications Medications (Trade) Dose Ordered Sig/Cheng Route Start Time Stop Time Status Last Admin (NS 1000 ml Inj) 1,000 ml @ 75 mls/hr [id number] ONCE IV 12/14/16 23:30 12/15/16 12:49 (NS Flush) 2 ml UNSCH PRN FLUSH 12/14/16 23:30 (NS Flush) 2 ml BID FLUSH 12/15/16 09:00 (Tylenol) 650 mg Q4H PRN PO 12/14/16 23:30 (Narcan Inj) 0.4 mg UNSCH PRN IV 12/14/16 23:30 Lorazepam 1 mg 1 mg Q5M PRN IV PUSH 12/14/16 23:45 (Levaquin 500 Mg Premix Inj) 100 ml @ 100 mls/hr Q24H IV 12/15/16 00:00 Family History Mother of liver failure Father of melanoma Sister: COPD Social History Tobacco use: Denies Alcohol use: Occasionally Illicit drug use: Denies Physical Exam Physical Exam GENERAL: This is a well-nourished, well-developed patient, in no apparent distress. SKIN: No rashes, ecchymoses. Cool and dry. Midline sternal incision covered with Steri-Strips HEAD: Atraumatic. Normocephalic. . EYES: Pupils equal round and reactive. ENT: Nose without bleeding, purulent drainage or septal hematoma. Airway patent. NECK: Trachea midline. No JVD CARDIOVASCULAR: Regular rate and rhythm without murmurs, gallops, or rubs. RESPIRATORY: Clear to auscultation. Diminished lung sounds at the bases. Dry hacking cough. GASTROINTESTINAL: Abdomen soft, non-tender, nondistended. No hepato-splenomegaly , or palpable masses. No guarding. MUSCULOSKELETAL: Bilateral +1 Lower extremity edema. No joint tenderness, effusion, or edema noted. No calf tenderness. NEUROLOGICAL: Awake and alert. Motor and sensory grossly within normal limits. Five out of 5 muscle strength in all muscle groups. Normal speech. Laboratory Laboratory Tests Test 12/14/16 23:26 Serum Osmolality 265 MOSM/KG (275-295) Assessment and Plan Problem List: (1) Seizures ICD Code: R56.9 Status: Acute (2) Hyponatremia ICD Code: E87.1 Status: Acute (3) UTI (urinary tract infection) ICD Code: N39.0 Status: Acute (4) Coronary artery disease ICD Code: I25.10 Status: Chronic (5) HTN (hypertension) ICD Code: I10 Status: Acute (6) Anxiety and depression ICD Code: F41.9 Status: Acute Assessment and Plan 81-year-old male with a history of hypertension, hyperlipidemia, CAD, V. tach, arthritis and prostate cancer presented with: Seizures, new onset -CT head ordered -EEG ordered -Consult neurosurgery for recommendations -Seizure precautions -Ativan when necessary Hyponatremia Labs: Sodium 122 -NS @ 75 x1L -Serial sodiums every 6 -Urine electrolytes pending, serum osmolality and serum serum sodium pending UTI -Urine culture pending -Levaquin IV daily -Dr. Morrow is following for urinary retention Upper respiratory infection -Tessalon when necessary -DuoNeb's q6 -Robitussin with codeine when necessary Coronary artery disease, chronic -Continue Plavix and aspirin -Continue Lipitor Hypertension, chronic -Continue metoprolol, valsartan Depression/anxiety, chronic -Continue Remeron and Desyrel DVT prophylaxis: SCDs Discussed case with Dr. Carter Discussed Condition With Patient and Dr. Carter Collaborating MD Comments Pt seen and examined, agree w/ above assessment and plan. Physician Certification 2 Midnight Certification Type: Admission for Inpatient Services Order for Inpatient Services The services are ordered in accordance with Medicare regulations or non- Medicare payer requirements, as applicable. In the case of services not specified as inpatient-only, they are appropriately provided as inpatient services in accordance with the 2-midnight benchmark. Estimated LOS (days): 3 days is the estimated time the patient will need to remain in the hospital, assuming treatment plan goals are met and no additional complications. Post-Hospital Plan: Not yet determined Odilia Briot Dec 14, 2016 23:55 Cherir Carter MD Dec 15, 2016 03:39
[2016-12-15] VITALS (9 sets, daily range): BP systolic 106–156; BP diastolic 60–78; PULSE 83–93; RESP 18–21; TEMP 96–98.8; O2SAT 80–99
[2016-12-15] MEDS ORDERED: BENZONATATE 100 MG CAP PO PRN (00:30)
[2016-12-15] MEDS ORDERED: RESP: ALBUTEROL 2.5 MG/IPRATROPIUM 0.5 MG NEB (SCH) NEB (00:30)
[2016-12-15] MEDS ORDERED: RESP: ALBUTEROL 2.5 MG/IPRATROPIUM 0.5 MG NEB (PRN) NEB (00:30)
[2016-12-15] MEDS: LEVOFLOXACIN 500 MG PREMIX INJ 100 ML IV SCH ×2 (01:38→23:03)
[2016-12-15] MEDS: guaiFENesin/CODEINE SYRUP 200 MG/20 MG/10 ML CUP PO PRN ×3 (04:26→16:40)
[2016-12-15] MEDS ORDERED: ACETAMINOPHEN/HYDROcodone 325 MG/5 MG TAB PO PRN (05:30)
[2016-12-15] MEDS ORDERED: NALOXONE HCL 0.4 MG/ML AMP IV PRN (05:30)
[2016-12-15 05:50] LABS: AUTOMATED NEUTROPHIL # 6.7 TH/MM3 (1.8-7.7); BASOPHIL % 0.4 % (0.0-2.0); EOSINOPHIL % 0.5 % (0.0-4.0); HEMATOCRIT 21.9 % (39.0-51.0); HEMO FLAGS DIFF FINAL; LYMPH % 6.2 % (9.0-44.0); LYMPHOCYTE # 0.5 TH/MM3 (1.0-4.8); MEAN CELL VOLUME 87.9 FL (80.0-100.0); MEAN CORPUSCULAR HEMOGLOBIN 31.3 PG (27.0-34.0); MEAN CORPUSCULAR HGB CONC 35.7 % (32.0-36.0); MONO % 12.6 % (0.0-8.0); NEUT % 80.3 % (16.0-70.0); PLATELET COUNT 246 TH/MM3 (150-450); RED BLOOD COUNT 2.49 MIL/MM3 (4.50-5.90); RED CELL DISTRIBUTION WIDTH 13.9 % (11.6-17.2); WHITE BLOOD COUNT 8.4 TH/MM3 (4.0-11.0)
[2016-12-15 06:07] LABS: BICARBONATE 26.7 MEQ/L (21.0-32.0); POTASSIUM 4.4 MEQ/L (3.5-5.1)
[2016-12-15] MEDS: RESP: ALBUTEROL 2.5 MG/IPRATROPIUM 0.5 MG NEB (SCH) NEB ×4 (07:36→20:45)
[2016-12-15] MEDS: ASPIRIN 81 MG CHEW TAB PO SCH (09:00)
[2016-12-15] MEDS ORDERED: FUROSEMIDE 40 MG TAB PO SCH (09:00)
[2016-12-15] MEDS: POTASSIUM CHLORIDE 20 MEQ CONTROLLED RELEASE TAB PO SCH ×2 (09:00→21:08)
[2016-12-15] MEDS ORDERED: guaiFENesin E.R. 600 MG TAB PO SCH (09:00)
[2016-12-15] MEDS: CLOPIDOGREL 75 MG TAB PO SCH (09:23)
[2016-12-15] MEDS: MULTIVITAMIN TAB PO SCH (09:24)
[2016-12-15] MEDS: AMIODARONE 200 MG TAB PO SCH ×2 (09:24→21:08)
[2016-12-15] MEDS: VALSARTAN 160 MG TAB PO SCH (09:24)
[2016-12-15] MEDS: POLYETHYLENE GLYCOL 17 GM PKG PO SCH (09:25)
[2016-12-15] MEDS: DOCUSATE SODIUM 100 MG CAP PO SCH ×2 (09:25→21:09)
[2016-12-15] MEDS: SODIUM CHLORIDE 0.9% FLUSH 5 ML FLUSH FLUSH SCH ×2 (09:25→21:00)
[2016-12-15 10:40] LABS: SODIUM (NA) 123 MEQ/L (136-145)
[2016-12-15] MEDS ORDERED: SODIUM CHLOR 0.9% 1000 ML INJ 1,000 ML IV SCH (11:00)
--- NOTE | 2016-12-15 11:22 | HHI.PR ---
Subjective Remarks Events noted. Pt back from MRI. Slightly confused. Objective Vital Signs Vital Signs Date Time Temp Pulse Resp B/P Pulse Ox O2 Delivery O2 Flow Rate FiO2 12/15/16 08:00 96.0 83 18 147/78 99 12/15/16 07:38 80 Nasal Cannula 1.00 12/15/16 04:23 98.5 91 20 135/60 97 12/15/16 00:33 97 Nasal Cannula 1.00 12/14/16 23:20 95.9 92 20 140/65 95 12/14/16 21:55 97 2.00 I/O 12/14/16 12/14/16 12/14/16 12/15/16 12/15/16 12/15/16 07:00 15:00 23:00 07:00 15:00 23:00 Intake Total 240 ml Output Total 250 ml Balance -10 ml Intake Oral 240 ml Output Urine Total 250 ml # Bowel Movements 0 Result Diagram: 12/15/16 0426 12/15/16 0957 Objective Remarks Abd:soft,nt,nd Brody in place. Urine clear. 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 Transferred from Rehab due to seizure last PM with hyponatremia. Maintain brody for now Continue Flomax. Will follow. Jaycob Morrow DO Dec 15, 2016 11:22
--- NOTE | 2016-12-15 11:40 | HHI.PR ---
Addendum to Inpatient Note Additional Information [facility] pt case dw Dr Tapia who will assume care Abando,Raz Robins MD Dec 15, 2016 11:40
[2016-12-15 12:22] LABS: CREATINE KINASE 375 U/L (39-308); FERRITIN 884 NG/ML (26-388); TRANSFERRIN IRON PROFILE 157 MG/DL (200-360); URIC ACID 3.1 MG/DL (2.6-7.2)
[2016-12-15] MEDS: SODIUM CHLORIDE 23.4% INJ 188 MEQ in SODIUM CHLOR 0.9% 1000 ML INJ 1,000 ML IV SCH (12:30)
[2016-12-15 12:36] LABS: CKMB 6.4 NG/ML (0.5-3.6)
[2016-12-15] MEDS ORDERED: FUROSEMIDE 100 MG/10 ML VIAL IV PUSH STA (12:40)
--- NOTE | 2016-12-15 12:45 | RADRPT ---
EXAM DATE/TIME: 12/15/2016 12:03 [facility] COMPARISON: CHEST PA & LAT, December 14, 2016, 15:12. CHEST SINGLE AP, December 05, 2016, 6:20. INDICATIONS : Cough, congestion, shortness of breath. MEDICAL HISTORY : Hypertension. Carcinoma, prostatic. Rheumatoid arthritis. SURGICAL HISTORY : CABG. ENCOUNTER: Subsequent ACUITY: 1 week PAIN SCORE: 0/10 LOCATION: Bilateral chest FINDINGS: Single AP view of the chest. Median sternotomy wires are again seen. Persistent bilateral lower lung zone opacity and small bilateral pleural effusions. Cardiomediastinal silhouette unchanged. No eviden ce of pneumothorax. CONCLUSION: No significant interval change in bilateral lower lung zone opacity and small bilateral pleural effus ions. August Fletcher MD on December 15, 2016 at 12:39 Board Certified Radiologist. This report was verified electronically.
--- NOTE | 2016-12-15 12:51 | RADRPT ---
EXAM DATE/TIME: 12/15/2016 10:46 There is marked central and cortical atrophy with dilatation of ventricular and sulcal spaces. There is no parenchymal hemorrhage, acute infarction or mass lesion identified. There are no extra-a xial fluid collections appreciated. The posterior fossa is unremarkable with midline fourth ventricl e. The portion of the orbits and paranasal sinuses visualized are unremarkable. CONCLUSION: Atrophy, otherwise negative Antonio Ryan MD FACR on December 15, 2016 at 12:49 Board Certified Radiologist. This report was verified electronically.
--- NOTE | 2016-12-15 15:16 | RADRPT ---
EXAM DATE/TIME: 12/15/2016 14:32 [facility] COMPARISON: None. INDICATIONS : New onset seizure. MEDICAL HISTORY : Hypertension. Carcinoma, prostate. Chronic obstructive pulmonary disease. SURGICAL HISTORY : CABG Inguinal hernia repair. ENCOUNTER: Initial ACUITY: 1 day PAIN SCORE: 0/10 LOCATION: cranial TECHNIQUE: Multiplanar, multisequence MRI of the brain was performed without contrast. FINDINGS: MRI of the brain is performed in sagittal, axial and coronal planes. The craniocervical junction and midline structures are unremarkable. Diffusion weighted images demonstrate no abnormality. There is n o evidence of acute cortical infarction, acute hemorrhage, mass effect or midline shift is seen. Ther e is periventricular hyperintensity on the T2 weighted images consistent with small vessel vascular d isease significantly more than expected in a patient of this age. Posterior fossa structures are unre markable. There are no findings of central pontine myelolysis. 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 CONCLUSION: 1. No evidence of acute intracranial pathology. Chronic ischemic changes as above. Nakul Napoles MD Board Certified Radiologist. This report was verified electronically.
--- NOTE | 2016-12-15 15:55 | MB ---
cc: NATALY HERNANDEZ MD DATE OF CONSULTATION: 12/15/2016. REASON FOR CONSULTATION: Seizures. HISTORY OF PRESENT ILLNESS: Mr. Canchola is an 81-year-old male with past medical history of hypertension, hyperlipidemia, coronary artery disease, ventricular tachycardia, arthritis and prostate cancer. As per medical records, he was admitted to [facility] with chest pain and underwent a cardiac catheterization and was found to have significant coronary artery stenosis. Then the patient was transferred to [place] for triple bypass and referred to [facility] for rehab and then he was seen earlier with complaint of edema, wheezes and cough. The patient was started on IV diuretics and was found to have a low sodium of 124. The patient's family noticed on 12/14/2016 at night that the patient became rigid with a seizure-like activity for 3 seconds. Stat labs were done and revealed a sodium level of 122. Fifteen minutes later, the patient had another seizure episode. During the encounter, the patient denies any history of seizures or epilepsy in the past. He also denies any history of TIA or stroke. REVIEW OF SYSTEMS: A twelve-point review of systems was negative except as stated in the history of present illness. PAST MEDICAL HISTORY: 1. CABG. 2. COPD. 3. Prostate cancer. 4. Hypertension. 5. Rheumatoid arthritis. 6. Hyperlipidemia. PAST SURGICAL HISTORY: 1. CABG. 2. Right inguinal hernia repair. 3. Seed implant. 4. Bilateral cataract surgery. 5. Skin cancer removed from the nose. MEDICATIONS: 1. Metoprolol. 2. Potassium chloride. 3. Lasix. 4. Docusate. 5. Lipitor. 6. Amiodarone. 7. Aspirin 81. 8. Clopidogrel 75. 9. Valsartan. 10. Pantoprazole. ALLERGIES: HMG-CoA reductase inhibitors FAMILY HISTORY: Mother of liver failure. Father of melanoma and sister COPD. SOCIAL HISTORY: Denies tobacco, illicit drug use and occasionally drinks alcohol. PHYSICAL EXAMINATION: GENERAL: The patient is awake, alert, well-nourished, a good historian in mild distress due to feeling cold because during the encounter he was being cleaned and prepped. HEAD, EYES, EARS, NOSE, THROAT: Intact hearing. Intact vision. Atraumatic, normocephalic. NECK: No signs of meningeal irritation. CARDIOVASCULAR: Regular rate and rhythm without murmurs. RESPIRATIONS Clear to auscultation. Diminished lung sounds at the bases. MUSCULOSKELETAL: Moves extremities equally. Bilateral ankle edema. NEUROLOGICAL EXAMINATION: MENTAL STATUS: Awake, alert and oriented to time, person and place. No signs of meningeal irritation. Intact memory. Intact speech and intact speech content. CRANIAL NERVES: Grossly intact. MOTOR SYSTEM EXAMINATION: Muscle strength is grossly 5/5 throughout bilateral and symmetrical. There is evident bilateral coarse hand tremor / the patient was shaking due to cold during the examination; however, there is a subtle cogwheel rigidity on bilateral upper extremities, right greater than the left. CEREBELLAR: Intact [id number] and [id number]-wl-[id number]. SENSORY EXAMINATION: Sensation is intact bilateral and symmetrical throughout. DEEP TENDON REFLEXES: Reflexes are 1+ bilateral and symmetrical. Plantars are bilaterally downgoing. DIAGNOSTIC IMAGING: - Head CT scan revealed atrophy, otherwise negative. DIAGNOSTIC IMPRESSION: 1. New onset seizure. Likely etiology is a provoked seizure secondary to marked hyponatremia. 2. Bilateral hand tremor with cogwheel rigidity. A possible etiology is extrapyramidal disorder. PLAN: 1. Neuro checks q. four hourly. 2. MRI brain. 3. EEG. 4. Correction of sodium. 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 5. Seizure precautions. 6. Management of the metabolic derangements by the attending team. 7. Fall precautions. 8. DVT prophylaxis with SCDs. Thank you for the opportunity to participate in the care of your patient. MD KAITY Iraheta/CESAR /3:14 PM /3:38 PM JOSUE
--- NOTE | 2016-12-15 17:22 | HHI.PR ---
Subjective Remarks Pt is a 81 y/o M who recently underwent 3V CABG at [facility]. Pt was then transferred to [place]. Pt developed AMS and reportedly had seizure activity. Pt transferred back to [place]. Pt found to have severe hypernatremia and volume overload. Last echocardiogram (11/28/16) showed EF 55% - Pt started on scheduled IV lasix and hypertonic saline - Pt continues to have confusion from baseline. Objective Vitals Vital Signs Date Time Temp Pulse Resp B/P Pulse Ox O2 Delivery O2 Flow Rate FiO2 12/15/16 16:00 98.8 93 18 151/74 98 12/15/16 12:00 96.8 92 18 156/73 95 12/15/16 08:00 96.0 83 18 147/78 99 12/15/16 07:38 80 Nasal Cannula 1.00 12/15/16 04:23 98.5 91 20 135/60 97 12/15/16 00:33 97 Nasal Cannula 1.00 12/14/16 23:20 95.9 92 20 140/65 95 12/14/16 21:55 97 2.00 12/14/16 12/14/16 12/15/16 15:00 23:00 07:00 Intake Total 240 ml Output Total 250 ml Balance -10 ml Intake Oral 240 ml Output Urine Total 250 ml # Bowel Movements 0 Result Diagram: 12/15/16 0426 12/15/16 1414 Imaging Last Impressions Chest X-Ray 12/15/16 0000 Signed Impressions: Service Date/Time: Thursday, December 15, 2016 12:03 - CONCLUSION: No significant interval change in bilateral lower lung zone opacity and small bilateral pleural effusions. August Fletcher MD Brain MRI 12/15/16 0000 Signed Impressions: Service Date/Time: Thursday, December 15, 2016 14:32 - CONCLUSION: 1. No evidence of acute intracranial pathology. Chronic ischemic changes as above. Nakul Napoles MD Head CT 12/14/16 0000 Signed Impressions: Service Date/Time: Thursday, December 15, 2016 10:46 - CONCLUSION: Atrophy, otherwise negative Antonio Ryan MD FACR Objective Remarks GENERAL: This is a well-nourished, well-developed patient, in no apparent distress. CARDIOVASCULAR: Regular rate and rhythm without murmurs, gallops, or rubs. RESPIRATORY: Clear to auscultation. Breath sounds equal bilaterally. No wheezes , rales, or rhonchi. GASTROINTESTINAL: Abdomen soft, non-tender, nondistended. Normal active bowel sounds MUSCULOSKELETAL: Extremities without clubbing, cyanosis, or edema. NEURO: Alert & Oriented x2, but confused at times, ERNANDEZ A/P Problem List: (1) Hyponatremia Status: Acute Plan: - possibly d/t volume overload, ?nutritional status - Pt started on NS prior to transfer to my service - Will eventually need repeat w/u for SIADH when off IVFs - 2% NACL,slow - serial serum NA - will stop NACL when NACL over 126 - observe mentation - repeat labs in AM (2) Seizures Status: Acute Plan: - likely d/t hyponatremia - appreciate input from Neurology - await EEG - observe - MRI brain (12/15/16) --> NO acute findings (3) UTI (urinary tract infection) Status: Acute Plan: - pyuria - NO fever - follow culture - on levaquin, probably stop 12/16 (4) Coronary artery disease Status: Chronic Plan: - recent 3V CABG - plavix, ASA, BB, lipitor (5) HTN (hypertension) Status: Chronic Plan: - stable - BB, ARB (6) Anxiety and depression Status: Chronic Plan: - ativan Problem Qualifiers (1) Coronary artery disease: Qualified Code: I25.10 - Coronary artery disease involving [place] heart without angina pectoris, unspecified vessel or lesion type (2) HTN (hypertension): Qualified Code: I10 - Essential hypertension Philippe Tapia DO Dec 15, 2016 17:22
[2016-12-15] MEDS: FUROSEMIDE 40 MG/4 ML VIAL IV PUSH SCH (18:02)
[2016-12-15] MEDS: ACETAMINOPHEN 325 MG TAB PO PRN (18:02)
--- NOTE | 2016-12-15 19:27 | MG ---
cc: ARETHA GREEN MD Lab No: [id number] Date: 12/15/2016 Age: Sex: M Race: 81-year-old. Body tremulousness. Possible seizure activity. DESCRIPTION OF RECORD: The posterior rhythm demonstrating 4-6 Hz activity, 20-40 microvolts with bursts of 2-3 Hz delta occurring paroxysmally. Minimal driving with photic stimulation. A lot of myogenic kinetic artifact in the bilateral frontotemporal region occurring off and on in the recording. Some episodes where he is moving his hands and having body tremors associated with generalized delta activity. No epileptic correlation. He is able to answer some questions. The posterior rhythm did increment up to 5-6 Hz towards the end. Single-lead EKG appearance shows sinus rhythm. INTERPRETATION: Mild encephalopathy, shaking episodes without any epileptic correlation. Clinical correlation. Aretha Green MD MG/JCLucrecia /7:09 PM /7:24 PM
[2016-12-15] MEDS ORDERED: ATORVASTATIN 40 MG TAB PO SCH (21:00)
[2016-12-15] MEDS: TERAZOSIN HCL 1 MG CAP PO SCH (21:08)
[2016-12-15] MEDS: METOPROLOL TARTRATE 25 MG TAB PO SCH (21:08)
[2016-12-15] MEDS: MIRTAZAPINE 15 MG TAB PO SCH (21:08)
[2016-12-15] MEDS: LATANOPROST 0.005% OPHT SOLN 2.5 ML BTL EACH EYE SCH (21:09)
[2016-12-15] MEDS: traZODone HCL 50 MG TAB PO SCH (21:09)
[2016-12-15] MEDS: TAMSULOSIN HCL 0.4 MG CAP PO SCH (21:09)
[2016-12-16] VITALS (15 sets, daily range): BP systolic 100–136; BP diastolic 52–77; PULSE 69–97; RESP 16–20; TEMP 95.6–98.4; O2SAT 95–99
[2016-12-16] MEDS: guaiFENesin/CODEINE SYRUP 200 MG/20 MG/10 ML CUP PO PRN (00:15)
[2016-12-16 03:07] LABS: BICARBONATE 30.2 MEQ/L (21.0-32.0); MAGNESIUM 1.7 MG/DL (1.5-2.5); POTASSIUM 3.9 MEQ/L (3.5-5.1)
[2016-12-16] MEDS: DOCUSATE SODIUM 100 MG CAP PO SCH ×2 (08:19→21:15)
[2016-12-16] MEDS: MULTIVITAMIN TAB PO SCH (08:20)
[2016-12-16] MEDS: POTASSIUM CHLORIDE 20 MEQ CONTROLLED RELEASE TAB PO SCH ×2 (08:20→21:15)
[2016-12-16] MEDS: AMIODARONE 200 MG TAB PO SCH ×2 (08:20→21:14)
[2016-12-16] MEDS: ASPIRIN 81 MG CHEW TAB PO SCH (08:20)
[2016-12-16] MEDS: FUROSEMIDE 40 MG/4 ML VIAL IV PUSH SCH ×2 (08:21→18:03)
[2016-12-16] MEDS: VALSARTAN 160 MG TAB PO SCH (08:21)
[2016-12-16] MEDS: SODIUM CHLORIDE 0.9% FLUSH 5 ML FLUSH FLUSH SCH ×2 (08:21→21:15)
[2016-12-16] MEDS: CLOPIDOGREL 75 MG TAB PO SCH (08:21)
[2016-12-16] MEDS: POLYETHYLENE GLYCOL 17 GM PKG PO SCH (08:22)
[2016-12-16] MEDS: RESP: ALBUTEROL 2.5 MG/IPRATROPIUM 0.5 MG NEB (SCH) NEB ×4 (09:58→20:21)
[2016-12-16 11:24] LABS: AUTOMATED NEUTROPHIL # 4.8 TH/MM3 (1.8-7.7); BASOPHIL % 0.5 % (0.0-2.0); EOSINOPHIL % 0.6 % (0.0-4.0); HEMATOCRIT 21.1 % (39.0-51.0); HEMO FLAGS DIFF FINAL; LYMPH % 8.7 % (9.0-44.0); LYMPHOCYTE # 0.6 TH/MM3 (1.0-4.8); MEAN CELL VOLUME 87.7 FL (80.0-100.0); MEAN CORPUSCULAR HEMOGLOBIN 30.6 PG (27.0-34.0); MEAN CORPUSCULAR HGB CONC 34.9 % (32.0-36.0); MONO % 17.6 % (0.0-8.0); NEUT % 72.6 % (16.0-70.0); PLATELET COUNT 261 TH/MM3 (150-450); WHITE BLOOD COUNT 6.7 TH/MM3 (4.0-11.0)
[2016-12-16] MEDS: SODIUM CHLORIDE 23.4% INJ 188 MEQ in SODIUM CHLOR 0.9% 1000 ML INJ 1,000 ML IV SCH (11:45)
[2016-12-16 11:52] LABS: BICARBONATE 29.6 MEQ/L (21.0-32.0)
[2016-12-16] MEDS: ACETAMINOPHEN 325 MG TAB PO PRN (14:00)
[2016-12-16] MEDS ORDERED: FUROSEMIDE 20 MG/2 ML VIAL IV ONE (16:00)
--- NOTE | 2016-12-16 16:04 | HHI.PR ---
Subjective Remarks Pt remains confused No further shaking episodes. Pt is tolerating PO intake. Objective Vitals Vital Signs Date Time Temp Pulse Resp B/P Pulse Ox O2 Delivery O2 Flow Rate FiO2 12/16/16 12:42 95.6 93 18 136/70 99 12/16/16 09:59 97 1.00 12/16/16 08:20 Nasal Cannula 2.00 12/16/16 08:00 96.9 90 18 132/75 96 12/16/16 04:00 97.5 86 20 105/52 96 12/16/16 00:25 98.4 86 20 112/54 98 12/16/16 00:19 95 Nasal Cannula 1.00 12/15/16 21:07 85 12/15/16 21:07 96 Nasal Cannula 2.00 12/15/16 20:57 98.4 90 21 106/63 96 12/15/16 20:47 95 Nasal Cannula 1.00 12/15/16 16:00 98.8 93 18 151/74 98 12/15/16 12/15/16 12/16/16 15:00 23:00 07:00 Intake Total 1210 ml 458 ml Output Total 2425 ml 1200 ml Balance -1215 ml -742 ml Intake Oral 1050 ml 200 ml IV Total 160 ml 258 ml Output Urine Total 2425 ml 1200 ml # Bowel Movements 0 0 Result Diagram: 12/16/16 1020 12/16/16 1020 Imaging Last Impressions Chest X-Ray 12/15/16 0000 Signed Impressions: Service Date/Time: Thursday, December 15, 2016 12:03 - CONCLUSION: No significant interval change in bilateral lower lung zone opacity and small bilateral pleural effusions. August Fletcher MD Brain MRI 12/15/16 0000 Signed Impressions: Service Date/Time: Thursday, December 15, 2016 14:32 - CONCLUSION: 1. No evidence of acute intracranial pathology. Chronic ischemic changes as above. Nakul Napoles MD Head CT 12/14/16 0000 Signed Impressions: Service Date/Time: Thursday, December 15, 2016 10:46 - CONCLUSION: Atrophy, otherwise negative Antonio Ryan MD FACR Objective Remarks GENERAL: This is a well-nourished, well-developed patient, in no apparent distress. CARDIOVASCULAR: Regular rate and rhythm without murmurs, gallops, or rubs. RESPIRATORY: Clear to auscultation. Breath sounds equal bilaterally. No wheezes , rales, or rhonchi. GASTROINTESTINAL: Abdomen soft, non-tender, nondistended. Normal active bowel sounds MUSCULOSKELETAL: Extremities without clubbing, cyanosis, or edema. NEURO: Alert & Oriented x2, but confused at times, ERNANDEZ A/P Problem List: (1) Anemia Status: Acute Plan: - likely d/t recent CABG, acute illness, and poor PO intake - obtain iron indices - transfuse 2 units PRBCs with lasix between units - repeat CBC in AM (2) Hyponatremia Status: Acute Plan: - possibly d/t volume overload, ?nutritional status - Pt started on NS prior to transfer to my service - Will eventually need repeat w/u for SIADH when off IVFs - 2% NACL,slow - serial serum NA increased to 124 (12/19/16) - will stop NACL when NACL over 126 - observe mentation - repeat labs in AM (3) Seizures Status: Acute Plan: - likely d/t hyponatremia - appreciate input from Neurology - EEG (12/15/16) --> no seizure activity - observe - MRI brain (12/15/16) --> NO acute findings (4) UTI (urinary tract infection) Status: Acute Plan: - pyuria - NO fever - follow culture - stop levaquin, (5) Coronary artery disease Status: Chronic Plan: - recent 3V CABG - plavix, ASA, BB, lipitor (6) HTN (hypertension) Status: Chronic Plan: - stable - BB, ARB (7) Anxiety and depression Status: Chronic Plan: - ativan Problem Qualifiers (1) Anemia: Qualified Code: D64.9 - Anemia, unspecified type (2) Coronary artery disease: Qualified Code: I25.10 - Coronary artery disease involving [place] heart without angina pectoris, unspecified vessel or lesion type (3) HTN (hypertension): Qualified Code: I10 - Essential hypertension Philippe Tapia DO Dec 16, 2016 16:03
[2016-12-16 16:27] LABS: RETIC % 4.3 % (0.4-3.0)
[2016-12-16 16:29] LABS: REVIEW FLAG FINAL
[2016-12-16 17:11] LABS: BICARBONATE 29.3 MEQ/L (21.0-32.0); POTASSIUM 3.8 MEQ/L (3.5-5.1)
[2016-12-16 17:26] LABS: FERRITIN 940 NG/ML (26-388); LDH SERUM 265 U/L (87-241); TRANSFERRIN IRON PROFILE 140 MG/DL (200-360)
[2016-12-16] MEDS: TERAZOSIN HCL 1 MG CAP PO SCH (21:14)
[2016-12-16] MEDS: METOPROLOL TARTRATE 25 MG TAB PO SCH (21:15)
[2016-12-16] MEDS: TAMSULOSIN HCL 0.4 MG CAP PO SCH (21:15)
[2016-12-16] MEDS: traZODone HCL 50 MG TAB PO SCH (21:15)
[2016-12-16] MEDS: MIRTAZAPINE 15 MG TAB PO SCH (21:15)
[2016-12-16] MEDS: LATANOPROST 0.005% OPHT SOLN 2.5 ML BTL EACH EYE SCH (21:15)
--- NOTE | 2016-12-16 21:46 | HHI.PR ---
Review/Management Diagnosis - New onset seizure. Likely etiology is a provoked seizure secondary to marked hyponatremia. - Bilateral hand tremor with cogwheel rigidity. A possible etiology is extrapyramidal disorder. - EEG with no ictal activity or epileptiform discharges - MRI brain with no acute intracranial abnormality Plan - Neuro checks q. four hourly. - Correction of sodium. 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 - No AED is warranted at this time - Seizure precautions. - Management of the metabolic derangements by the attending team. - DVT prophylaxis with SCDs. Diagnosis/Plan: Subjective Subjective Comments No acute events reported No seizure activity reported Correction of Na is ongoing and daughter at bed side EEG with no ictal activity Active Medications Current Medications Medications (Trade) Dose Ordered Sig/Cheng Route Start Time Stop Time Status Last Admin (NS Flush) 2 ml UNSCH PRN FLUSH 12/14/16 23:30 (NS Flush) 2 ml BID FLUSH 12/15/16 09:00 12/16/16 21:15 (Tylenol) 650 mg Q4H PRN PO 12/14/16 23:30 12/16/16 14:00 (Ativan Inj) 1 mg Q5M PRN IV PUSH 12/14/16 23:45 (Desyrel) 25 mg HS PO 12/15/16 21:00 12/16/16 21:15 (Lopressor) 12.5 mg HS PO 12/15/16 21:00 12/16/16 21:15 (Flomax) 0.4 mg HS PO 12/15/16 21:00 12/16/16 21:15 (KCl) 20 meq Q12HR PO 12/15/16 09:00 12/16/16 21:15 (Colace) 100 mg BID PO 12/15/16 09:00 12/16/16 21:15 (Miralax) 17 gm DAILY PO 12/15/16 09:00 12/16/16 08:22 (Theragran) 1 tab DAILY PO 12/15/16 09:00 12/16/16 08:20 (Diovan) 160 mg DAILY PO 12/15/16 09:00 12/16/16 08:21 (Plavix) 75 mg DAILY PO 12/15/16 09:00 12/16/16 08:21 (Aspirin Chew) 81 mg DAILY PO 12/15/16 09:00 12/16/16 08:20 (Hytrin) 2 mg HS PO 12/15/16 21:00 12/16/16 21:14 (Tessalon) 100 mg TID PRN PO 12/15/16 00:30 (Cordarone) 200 mg Q12HR PO 12/15/16 09:00 12/16/16 21:14 (Remeron) 30 mg HS PO 12/15/16 21:00 12/16/16 21:15 (Xalatan 0.005% Opth Soln) 1 drop HS EACH EYE 12/15/16 21:00 12/16/16 21:15 (Robitussin Ac 200-20 Mg/10 ml Liq) 10 ml Q4H PRN PO 12/15/16 02:30 12/16/16 00:15 ([place] 5-325 Mg) 0.5 tab Q4H PRN PO 12/15/16 05:30 (Narcan Inj) 0.4 mg UNSCH PRN IV 12/15/16 05:30 Furosemide 40 mg 40 mg BID@09,18 IV PUSH 12/15/16 18:00 12/16/16 18:03 (Sodium Chloride 23.4% Inj/NS 1000 ml Inj) 1,047 ml @ 20 mls/hr Q24H IV 12/15/16 11:45 12/15/16 12:30 Allergies Allergies Coded Allergies HMG-CoA Reductase Inhibitors (Verified Adverse Reaction, Unknown, 12/13/16) Exam I&O / VS 12/15/16 12/15/16 12/16/16 15:00 23:00 07:00 Intake Total 1210 ml 458 ml Output Total 2425 ml 1200 ml Balance -1215 ml -742 ml Intake Oral 1050 ml 200 ml IV Total 160 ml 258 ml Output Urine Total 2425 ml 1200 ml # Bowel Movements 0 0 Vital Signs Date Time Temp Pulse Resp B/P Pulse Ox O2 Delivery O2 Flow Rate FiO2 12/16/16 20:10 97.9 96 19 115/62 96 12/16/16 18:45 97.7 69 16 100/60 95 12/16/16 18:07 97.6 92 16 103/56 96 12/16/16 16:49 95 Nasal Cannula 1.00 12/16/16 16:00 96.5 94 16 113/77 96 12/16/16 12:42 95.6 93 18 136/70 99 12/16/16 09:59 97 1.00 12/16/16 08:20 Nasal Cannula 2.00 12/16/16 08:00 96.9 90 18 132/75 96 12/16/16 04:00 97.5 86 20 105/52 96 12/16/16 00:25 98.4 86 20 112/54 98 12/16/16 00:19 95 Nasal Cannula 1.00 Respiratory: Lungs CTA, Non-labored respirations, BS equal, Symmetrical expansion, Coarse breath sounds, Other Cardiology: Normal rate, Regular Rhythm Musculoskeletal: Tenderness, Swelling Neurologic: Alert, Oriented, Normal sensory, No focal defects, CN II-XII intact , Normal DTR's, Other (b/l coarse hand tremor) Objective Micro and Labs Laboratory Tests Test 12/15/16 12/16/16 12/16/16 12/16/16 21:53 01:22 10:20 16:25 Sodium Level 123 122 124 125 Potassium Level 3.9 4.0 3.8 Chloride Level 87 88 88 Carbon Dioxide Level 30.2 29.6 29.3 Anion Gap 5 6 8 Blood Urea Nitrogen 10 10 11 Creatinine 0.95 0.96 1.11 Estimat Glomerular Filtration 76 75 63 Rate Random Glucose 110 101 114 Calcium Level 7.5 7.8 7.1 Magnesium Level 1.7 White Blood Count 6.7 Red Blood Count 2.40 Hemoglobin 7.3 Hematocrit 21.1 Mean Corpuscular Volume 87.7 Mean Corpuscular Hemoglobin 30.6 Mean Corpuscular Hemoglobin 34.9 Concent Red Cell Distribution Width 14.0 Platelet Count 261 Mean Platelet Volume 7.7 Neutrophils (%) (Auto) 72.6 Lymphocytes (%) (Auto) 8.7 Monocytes (%) (Auto) 17.6 Eosinophils (%) (Auto) 0.6 Basophils (%) (Auto) 0.5 Neutrophils # (Auto) 4.8 Lymphocytes # (Auto) 0.6 Monocytes # (Auto) 1.2 Eosinophils # (Auto) 0.0 Basophils # (Auto) 0.0 CBC Comment DIFF FINAL Differential Comment Reticulocyte Count 4.3 Absolute Reticulocyte Count 103.5 Iron Level 16 Total Iron Binding Capacity 196 Percent Iron Saturation 8.2 Ferritin 940 Lactate Dehydrogenase 265 Protein Corrected Calcium 8.0 Total Protein 5.4 Blood Type O POSITIVE Antibody Screen NEGATIVE Crossmatch Leukocyte-Reduced Red Blood Cells Blood Bank Comment Aziza Butler MD Dec 16, 2016 21:46
[2016-12-17] VITALS (10 sets, daily range): BP systolic 123–159; BP diastolic 59–81; PULSE 85–101; RESP 16–19; TEMP 96.6–98.4; O2SAT 94–97
--- NOTE | 2016-12-17 07:33 | HHI.PR ---
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 DVT prophylaxis seizure precautions Diagnosis/Plan: Subjective Subjective Comments No acute events reported No reported seizures Mild tremor in both LE, and daughter at bed side, they both states that tremor is not new onset Sodium level is 125 EEG with no ictal activity or epileptiform discharges MRI brain with no acute events CUS with no significant stenosis Active Medications Current Medications Medications (Trade) Dose Ordered Sig/Cheng Route Start Time Stop Time Status Last Admin (NS Flush) 2 ml UNSCH PRN FLUSH 12/14/16 23:30 (NS Flush) 2 ml BID FLUSH 12/15/16 09:00 12/16/16 21:15 (Tylenol) 650 mg Q4H PRN PO 12/14/16 23:30 12/16/16 14:00 (Ativan Inj) 1 mg Q5M PRN IV PUSH 12/14/16 23:45 (Desyrel) 25 mg HS PO 12/15/16 21:00 12/16/16 21:15 (Lopressor) 12.5 mg HS PO 12/15/16 21:00 12/16/16 21:15 (Flomax) 0.4 mg HS PO 12/15/16 21:00 12/16/16 21:15 (KCl) 20 meq Q12HR PO 12/15/16 09:00 12/16/16 21:15 (Colace) 100 mg BID PO 12/15/16 09:00 12/16/16 21:15 (Miralax) 17 gm DAILY PO 12/15/16 09:00 12/16/16 08:22 (Theragran) 1 tab DAILY PO 12/15/16 09:00 12/16/16 08:20 (Diovan) 160 mg DAILY PO 12/15/16 09:00 12/16/16 08:21 (Plavix) 75 mg DAILY PO 12/15/16 09:00 12/16/16 08:21 (Aspirin Chew) 81 mg DAILY PO 12/15/16 09:00 12/16/16 08:20 (Hytrin) 2 mg HS PO 12/15/16 21:00 12/16/16 21:14 (Tessalon) 100 mg TID PRN PO 12/15/16 00:30 (Cordarone) 200 mg Q12HR PO 12/15/16 09:00 12/16/16 21:14 (Remeron) 30 mg HS PO 12/15/16 21:00 12/16/16 21:15 (Xalatan 0.005% Opth Soln) 1 drop HS EACH EYE 12/15/16 21:00 12/16/16 21:15 (Robitussin Ac 200-20 Mg/10 ml Liq) 10 ml Q4H PRN PO 12/15/16 02:30 12/16/16 00:15 ([place] 5-325 Mg) 0.5 tab Q4H PRN PO 12/15/16 05:30 (Narcan Inj) 0.4 mg UNSCH PRN IV 12/15/16 05:30 Furosemide 40 mg 40 mg BID@09,18 IV PUSH 12/15/16 18:00 12/16/16 18:03 (Sodium Chloride 23.4% Inj/NS 1000 ml Inj) 1,047 ml @ 20 mls/hr Q24H IV 12/15/16 11:45 12/15/16 12:30 Allergies Allergies Coded Allergies HMG-CoA Reductase Inhibitors (Verified Adverse Reaction, Unknown, 12/13/16) Exam I&O / VS 12/16/16 12/16/16 12/17/16 15:00 23:00 07:00 Intake Total 240 ml 869 ml 826 ml Output Total 900 ml 700 ml 1500 ml Balance -660 ml 169 ml -674 ml Intake Oral 240 ml 480 ml 480 ml IV Total 109 ml 66 ml Packed Cells 280 ml 280 ml Output Urine Total 900 ml 700 ml 1500 ml # Bowel Movements 0 0 Vital Signs Date Time Temp Pulse Resp B/P Pulse Ox O2 Delivery O2 Flow Rate FiO2 12/17/16 04:13 97.2 89 18 144/81 96 12/17/16 00:38 96.8 85 18 159/70 96 12/16/16 21:25 96.9 97 18 122/76 97 12/16/16 21:10 97.7 93 18 123/60 97 12/16/16 20:21 95 Nasal Cannula 1.00 12/16/16 20:10 97.9 96 19 115/62 96 12/16/16 20:00 97 12/16/16 20:00 Nasal Cannula 2.00 12/16/16 18:45 97.7 69 16 100/60 95 12/16/16 18:07 97.6 92 16 103/56 96 12/16/16 16:49 95 Nasal Cannula 1.00 12/16/16 16:00 96.5 94 16 113/77 96 12/16/16 12:42 95.6 93 18 136/70 99 12/16/16 09:59 97 1.00 12/16/16 08:20 Nasal Cannula 2.00 12/16/16 08:00 96.9 90 18 132/75 96 General: Alert and Oriented Eye: PERRL, EOMI Respiratory: Lungs CTA, Non-labored respirations, BS equal, Symmetrical expansion, Coarse breath sounds, Other Cardiology: Normal rate, Regular Rhythm Musculoskeletal: Tenderness, Swelling Neurologic: Alert, Oriented, Normal sensory, Normal motor, No focal defects, CN II-XII intact, Normal DTR's, Other (mild coarse b/l hand tremor) Objective Radiology Results Last 72 hours Impressions Chest X-Ray 12/15/16 0000 Signed Impressions: Service Date/Time: Thursday, December 15, 2016 12:03 - CONCLUSION: No significant interval change in bilateral lower lung zone opacity and small bilateral pleural effusions. August Fletcher MD Brain MRI 12/15/16 0000 Signed Impressions: Service Date/Time: Thursday, December 15, 2016 14:32 - CONCLUSION: 1. No evidence of acute intracranial pathology. Chronic ischemic changes as above. Nakul Napoles MD Micro and Labs Laboratory Tests Test 12/16/16 12/16/16 10:20 16:25 White Blood Count 6.7 Red Blood Count 2.40 Hemoglobin 7.3 Hematocrit 21.1 Mean Corpuscular Volume 87.7 Mean Corpuscular Hemoglobin 30.6 Mean Corpuscular Hemoglobin 34.9 Concent Red Cell Distribution Width 14.0 Platelet Count 261 Mean Platelet Volume 7.7 Neutrophils (%) (Auto) 72.6 Lymphocytes (%) (Auto) 8.7 Monocytes (%) (Auto) 17.6 Eosinophils (%) (Auto) 0.6 Basophils (%) (Auto) 0.5 Neutrophils # (Auto) 4.8 Lymphocytes # (Auto) 0.6 Monocytes # (Auto) 1.2 Eosinophils # (Auto) 0.0 Basophils # (Auto) 0.0 CBC Comment DIFF FINAL Differential Comment Reticulocyte Count 4.3 Absolute Reticulocyte Count 103.5 Sodium Level 124 125 Potassium Level 4.0 3.8 Chloride Level 88 88 Carbon Dioxide Level 29.6 29.3 Anion Gap 6 8 Blood Urea Nitrogen 10 11 Creatinine 0.96 1.11 Estimat Glomerular Filtration 75 63 Rate Random Glucose 101 114 Calcium Level 7.8 7.1 Iron Level 16 Total Iron Binding Capacity 196 Percent Iron Saturation 8.2 Ferritin 940 Lactate Dehydrogenase 265 Protein Corrected Calcium 8.0 Total Protein 5.4 Blood Type O POSITIVE Antibody Screen NEGATIVE Crossmatch Leukocyte-Reduced Red Blood Cells Blood Bank Comment Aziza Butler MD Dec 17, 2016 07:33
[2016-12-17] MEDS: RESP: ALBUTEROL 2.5 MG/IPRATROPIUM 0.5 MG NEB (SCH) NEB ×4 (07:51→19:55)
--- NOTE | 2016-12-17 08:01 | RADRPT ---
EXAM DATE/TIME: 12/17/2016 07:33 [facility] COMPARISON: CHEST SINGLE AP, December 15, 2016, 12:03. INDICATIONS : Evaluate for congestive heart failure. MEDICAL HISTORY : Congestive heart failure. SURGICAL HISTORY : Triple cardiac bypass graft. ENCOUNTER: Initial ACUITY: 1 day PAIN SCORE: 3/10 LOCATION: Bilateral chest FINDINGS: A single view of the chest demonstrates small bilateral pleural effusions and bibasilar densities. Th ere is increased pulmonary vascularity. Previous median sternotomy. Heart borderline enlarged. [place] us structures are intact. CONCLUSION: 1. Bilateral pleural effusions and probable bibasilar atelectasis. 2. No significant change. Gera Martinez MD on December 17, 2016 at 7:57 Board Certified Radiologist. This report was verified electronically.
[2016-12-17 08:02] LABS: AUTOMATED NEUTROPHIL # 4.1 TH/MM3 (1.8-7.7); BASOPHIL % 0.9 % (0.0-2.0); EOSINOPHIL # 0.1 TH/MM3 (0-0.4); HEMATOCRIT 28.6 % (39.0-51.0); HEMO FLAGS DIFF FINAL; LYMPH % 5.9 % (9.0-44.0); LYMPHOCYTE # 0.3 TH/MM3 (1.0-4.8); MEAN CELL VOLUME 85.5 FL (80.0-100.0); MEAN CORPUSCULAR HEMOGLOBIN 29.8 PG (27.0-34.0); MEAN CORPUSCULAR HGB CONC 34.8 % (32.0-36.0); MONO % 17.2 % (0.0-8.0); PLATELET COUNT 278 TH/MM3 (150-450); RED BLOOD COUNT 3.35 MIL/MM3 (4.50-5.90); RED CELL DISTRIBUTION WIDTH 15.1 % (11.6-17.2); WHITE BLOOD COUNT 5.5 TH/MM3 (4.0-11.0)
[2016-12-17] MEDS: CLOPIDOGREL 75 MG TAB PO SCH (08:05)
[2016-12-17] MEDS: FUROSEMIDE 40 MG/4 ML VIAL IV PUSH SCH ×2 (08:05→18:00)
[2016-12-17] MEDS: POLYETHYLENE GLYCOL 17 GM PKG PO SCH (08:05)
[2016-12-17] MEDS: VALSARTAN 160 MG TAB PO SCH (08:05)
[2016-12-17] MEDS: AMIODARONE 200 MG TAB PO SCH ×2 (08:05→21:00)
[2016-12-17] MEDS: ASPIRIN 81 MG CHEW TAB PO SCH (08:05)
[2016-12-17] MEDS: MULTIVITAMIN TAB PO SCH (08:06)
[2016-12-17] MEDS: DOCUSATE SODIUM 100 MG CAP PO SCH ×2 (08:06→21:12)
[2016-12-17] MEDS: POTASSIUM CHLORIDE 20 MEQ CONTROLLED RELEASE TAB PO SCH ×2 (08:09→21:12)
[2016-12-17 08:32] LABS: BICARBONATE 28.3 MEQ/L (21.0-32.0); POTASSIUM 3.9 MEQ/L (3.5-5.1)
[2016-12-17] MEDS: SODIUM CHLORIDE 0.9% FLUSH 5 ML FLUSH FLUSH SCH ×2 (09:00→21:00)
[2016-12-17] MEDS: LORazepam 2 MG/ML VIAL IV PUSH PRN ×2 (10:25→21:15)
--- NOTE | 2016-12-17 11:19 | HHI.PR ---
Subjective Remarks No new complaints. Pt still with increased confusion from baseline. Pt is very weak. Objective Vitals Vital Signs Date Time Temp Pulse Resp B/P Pulse Ox O2 Delivery O2 Flow Rate FiO2 12/17/16 07:53 97 Nasal Cannula 1.00 12/17/16 07:42 98.4 89 16 149/79 94 12/17/16 07:25 Nasal Cannula 2.00 12/17/16 07:25 95 12/17/16 04:13 97.2 89 18 144/81 96 12/17/16 00:38 96.8 85 18 159/70 96 12/16/16 21:25 96.9 97 18 122/76 97 12/16/16 21:10 97.7 93 18 123/60 97 12/16/16 20:21 95 Nasal Cannula 1.00 12/16/16 20:10 97.9 96 19 115/62 96 12/16/16 20:00 97 12/16/16 20:00 Nasal Cannula 2.00 12/16/16 18:45 97.7 69 16 100/60 95 12/16/16 18:07 97.6 92 16 103/56 96 12/16/16 16:49 95 Nasal Cannula 1.00 12/16/16 16:00 96.5 94 16 113/77 96 12/16/16 12:42 95.6 93 18 136/70 99 12/16/16 12/16/16 12/17/16 15:00 23:00 07:00 Intake Total 240 ml 869 ml 826 ml Output Total 900 ml 700 ml 1500 ml Balance -660 ml 169 ml -674 ml Intake Oral 240 ml 480 ml 480 ml IV Total 109 ml 66 ml Packed Cells 280 ml 280 ml Output Urine Total 900 ml 700 ml 1500 ml # Bowel Movements 0 0 Result Diagram: 12/17/16 0634 12/17/16 0634 Imaging Last Impressions Chest X-Ray 12/17/16 0800 Signed Impressions: Service Date/Time: Saturday, December 17, 2016 07:33 - CONCLUSION: 1. Bilateral pleural effusions and probable bibasilar atelectasis. 2. No significant change. Gera Martinez MD Brain MRI 12/15/16 0000 Signed Impressions: Service Date/Time: Thursday, December 15, 2016 14:32 - CONCLUSION: 1. No evidence of acute intracranial pathology. Chronic ischemic changes as above. Nakul Napoles MD Head CT 12/14/16 0000 Signed Impressions: Service Date/Time: Thursday, December 15, 2016 10:46 - CONCLUSION: Atrophy, otherwise negative Antonio Ryan MD FACR Objective Remarks GENERAL: This is a well-nourished, well-developed patient, in no apparent distress. CARDIOVASCULAR: Regular rate and rhythm without murmurs, gallops, or rubs. RESPIRATORY: Clear to auscultation. Breath sounds equal bilaterally. No wheezes , rales, or rhonchi. GASTROINTESTINAL: Abdomen soft, non-tender, nondistended. Normal active bowel sounds MUSCULOSKELETAL: Extremities without clubbing, cyanosis, or edema. NEURO: Alert & Oriented x2, but confused at times, ERNANDEZ A/P Problem List: (1) Anemia Status: Acute Plan: - likely d/t recent CABG, acute illness, and poor PO intake - serum iron 17, start PO iron - once recovered from current condition, consider screening colonoscopy - transfuse 2 units PRBCs (12/16/16) - Hg 7.3 (12/16/16), Hg 10.0 (12/17/16) (2) Hyponatremia Status: Acute Plan: - possibly d/t volume overload, poor nutritional status - Pt started on NS prior to transfer to my service - Will eventually need repeat w/u for SIADH when off IVFs - 2% NACL,slow, increase from 20ml/hr to 30ml/hr - serial serum NA increased to 124 (12/16/16), 125 (12/17/16) - observe mentation - repeat labs in AM (3) Seizures Status: Acute Plan: - likely d/t hyponatremia - appreciate input from Neurology - EEG (12/15/16) --> no seizure activity - observe - MRI brain (12/15/16) --> NO acute findings (4) UTI (urinary tract infection) Status: Acute Plan: - pyuria - NO fever - follow culture - stop levaquin, (5) Coronary artery disease Status: Chronic Plan: - recent 3V CABG - plavix, ASA, BB, lipitor (6) HTN (hypertension) Status: Chronic Plan: - stable - BB, ARB (7) Anxiety and depression Status: Chronic Plan: - ativan Problem Qualifiers (1) Anemia: Qualified Code: D64.9 - Anemia, unspecified type (2) Coronary artery disease: Qualified Code: I25.10 - Coronary artery disease involving [place] heart without angina pectoris, unspecified vessel or lesion type (3) HTN (hypertension): Qualified Code: I10 - Essential hypertension Philippe Tapia DO Dec 17, 2016 11:18
[2016-12-17] MEDS ORDERED: guaiFENesin/DEXTROMETHORPHAN 200 MG/20 MG/10 ML CUP PO PRN (11:30)
[2016-12-17] MEDS: SODIUM CHLORIDE 23.4% INJ 188 MEQ in SODIUM CHLOR 0.9% 1000 ML INJ 1,000 ML IV SCH (11:45)
[2016-12-17] MEDS: IBUPROFEN 400 MG TAB PO PRN (15:39)
[2016-12-17 17:31] LABS: POTASSIUM 3.9 MEQ/L (3.5-5.1)
[2016-12-17] MEDS: LATANOPROST 0.005% OPHT SOLN 2.5 ML BTL EACH EYE SCH (21:00)
[2016-12-17] MEDS: traZODone HCL 50 MG TAB PO SCH (21:13)
[2016-12-17] MEDS: METOPROLOL TARTRATE 25 MG TAB PO SCH (21:13)
[2016-12-17] MEDS: TAMSULOSIN HCL 0.4 MG CAP PO SCH (21:13)
[2016-12-17] MEDS: TERAZOSIN HCL 1 MG CAP PO SCH (21:13)
[2016-12-17] MEDS: MIRTAZAPINE 15 MG TAB PO SCH (21:14)
[2016-12-18] VITALS (9 sets, daily range): BP systolic 108–135; BP diastolic 52–82; PULSE 72–92; RESP 16–18; TEMP 95.5–98.3; O2SAT 95–98
[2016-12-18 04:57] LABS: BICARBONATE 28.1 MEQ/L (21.0-32.0)
[2016-12-18] MEDS: POLYETHYLENE GLYCOL 17 GM PKG PO SCH (09:00)
[2016-12-18] MEDS: ASPIRIN 81 MG CHEW TAB PO SCH (09:04)
[2016-12-18] MEDS: SODIUM CHLORIDE 0.9% FLUSH 5 ML FLUSH FLUSH SCH ×2 (09:04→20:48)
[2016-12-18] MEDS: VALSARTAN 160 MG TAB PO SCH (09:04)
[2016-12-18] MEDS: CLOPIDOGREL 75 MG TAB PO SCH (09:04)
[2016-12-18] MEDS: DOCUSATE SODIUM 100 MG CAP PO SCH ×2 (09:04→20:48)
[2016-12-18] MEDS: POTASSIUM CHLORIDE 20 MEQ CONTROLLED RELEASE TAB PO SCH ×2 (09:04→20:48)
[2016-12-18] MEDS: FUROSEMIDE 40 MG/4 ML VIAL IV PUSH SCH ×2 (09:04→18:31)
[2016-12-18] MEDS: MULTIVITAMIN TAB PO SCH (09:04)
[2016-12-18] MEDS: AMIODARONE 200 MG TAB PO SCH ×2 (09:04→20:48)
[2016-12-18] MEDS: RESP: ALBUTEROL 2.5 MG/IPRATROPIUM 0.5 MG NEB (SCH) NEB ×4 (09:39→19:49)
--- NOTE | 2016-12-18 10:30 | HHI.PR ---
Subjective Remarks Pt resting comfortably. Nursing staff reports that he did receive Ativan last night around 2100 for some "tremors" No reported seizure activity Pt awakens easily and answers questions appropriately but quickly drifts back to sleep. No acute events overnight reported Objective Vitals Vital Signs Date Time Temp Pulse Resp B/P Pulse Ox O2 Delivery O2 Flow Rate FiO2 12/18/16 04:12 95.5 72 18 125/69 95 12/18/16 00:15 98.0 79 17 121/62 97 12/17/16 20:08 98.4 101 19 123/59 94 12/17/16 20:00 96 Nasal Cannula 2.00 12/17/16 19:57 96 Nasal Cannula 1.00 12/17/16 16:59 96.6 96 17 142/73 96 12/17/16 12:48 94 Nasal Cannula 1.00 12/17/16 12:05 96.8 93 17 131/66 94 12/17/16 12/17/16 12/18/16 15:00 23:00 07:00 Intake Total 690 ml 1005 ml 421 ml Output Total 1450 ml 400 ml 500 ml Balance -760 ml 605 ml -79 ml Intake Oral 690 ml 500 ml 120 ml IV Total 505 ml 301 ml Output Urine Total 1450 ml 400 ml 500 ml # Voids 0 # Bowel Movements 0 1 0 Result Diagram: 12/17/16 0634 12/18/16 0312 Other Results Laboratory Tests Test 12/16/16 12/16/16 12/17/16 12/17/16 10:20 16:25 06:34 16:30 White Blood Count 6.7 TH/MM3 5.5 TH/MM3 Red Blood Count 2.40 MIL/MM3 3.35 MIL/MM3 Hemoglobin 7.3 GM/DL 10.0 GM/DL Hematocrit 21.1 % 28.6 % Mean Corpuscular Volume 87.7 FL 85.5 FL Mean Corpuscular Hemoglobin 30.6 PG 29.8 PG Mean Corpuscular Hemoglobin 34.9 % 34.8 % Concent Red Cell Distribution Width 14.0 % 15.1 % Platelet Count 261 TH/MM3 278 TH/MM3 Mean Platelet Volume 7.7 FL 7.6 FL Neutrophils (%) (Auto) 72.6 % 75.0 % Lymphocytes (%) (Auto) 8.7 % 5.9 % Monocytes (%) (Auto) 17.6 % 17.2 % Eosinophils (%) (Auto) 0.6 % 1.0 % Basophils (%) (Auto) 0.5 % 0.9 % Neutrophils # (Auto) 4.8 TH/MM3 4.1 TH/MM3 Lymphocytes # (Auto) 0.6 TH/MM3 0.3 TH/MM3 Monocytes # (Auto) 1.2 TH/MM3 0.9 TH/MM3 Eosinophils # (Auto) 0.0 TH/MM3 0.1 TH/MM3 Basophils # (Auto) 0.0 TH/MM3 0.0 TH/MM3 CBC Comment DIFF FINAL DIFF FINAL Differential Comment Reticulocyte Count 4.3 % Absolute Reticulocyte Count 103.5 MIL/L Sodium Level 124 MEQ/L 125 MEQ/L 125 MEQ/L 128 MEQ/L Potassium Level 4.0 MEQ/L 3.8 MEQ/L 3.9 MEQ/L 3.9 MEQ/L Chloride Level 88 MEQ/L 88 MEQ/L 87 MEQ/L 91 MEQ/L Carbon Dioxide Level 29.6 MEQ/L 29.3 MEQ/L 28.3 MEQ/L 31.0 MEQ/L Anion Gap 6 MEQ/L 8 MEQ/L 10 MEQ/L 6 MEQ/L Blood Urea Nitrogen 10 MG/DL 11 MG/DL 10 MG/DL 12 MG/DL Creatinine 0.96 MG/DL 1.11 MG/DL 0.94 MG/DL 1.10 MG/DL Estimat Glomerular Filtration 75 ML/MIN 63 ML/MIN 77 ML/MIN 64 ML/MIN Rate Random Glucose 101 MG/DL 114 MG/DL 100 MG/DL 104 MG/DL Calcium Level 7.8 MG/DL 7.1 MG/DL 7.6 MG/DL 7.5 MG/DL Iron Level 16 MCG/DL Total Iron Binding Capacity 196 MCG/DL Percent Iron Saturation 8.2 % Ferritin 940 NG/ML Lactate Dehydrogenase 265 U/L Protein Corrected Calcium 8.0 MG/DL Total Protein 5.4 GM/DL Blood Type O POSITIVE Antibody Screen NEGATIVE Crossmatch Leukocyte-Reduced Red Blood Cells Blood Bank Comment Test 12/18/16 03:12 Sodium Level 129 MEQ/L Potassium Level 4.0 MEQ/L Chloride Level 92 MEQ/L Carbon Dioxide Level 28.1 MEQ/L Anion Gap 9 MEQ/L Blood Urea Nitrogen 13 MG/DL Creatinine 0.93 MG/DL Estimat Glomerular Filtration 78 ML/MIN Rate Random Glucose 106 MG/DL Calcium Level 7.8 MG/DL Imaging Last Impressions Chest X-Ray 12/17/16 0800 Signed Impressions: Service Date/Time: Saturday, December 17, 2016 07:33 - CONCLUSION: 1. Bilateral pleural effusions and probable bibasilar atelectasis. 2. No significant change. Gera Martinez MD Brain MRI 12/15/16 0000 Signed Impressions: Service Date/Time: Thursday, December 15, 2016 14:32 - CONCLUSION: 1. No evidence of acute intracranial pathology. Chronic ischemic changes as above. Nakul Napoles MD Head CT 12/14/16 0000 Signed Impressions: Service Date/Time: Thursday, December 15, 2016 10:46 - CONCLUSION: Atrophy, otherwise negative Antonio Ryan MD FACR Objective Remarks General: NAD, awakens easily from sleep but quickly drifts back to sleep Chest: CTA bilaterally Cardiac: Regular Abd: +BS, soft ND/NT Ext: No edema A/P Problem List: (1) Hyponatremia Status: Acute Plan: - Pt transferred from [facility] on 12/14/16 with seizure activity. - Pt was found to have significant hyponatremia with Na+ 124 - Though to possibly be d/t volume overload, poor nutritional status - Pt was started on NS prior to transfer to my service (Of note, pt had been given Lasix prior to transfer for possible volume overload) - Will eventually need repeat w/u for SIADH when off IVFs - Pt was started on 2% NACL on 12/15 with slow increase from 20ml/hr to 30ml/hr to currently at 40mL/hr - Serial serum Na+ increased to 124 (12/16/16) --> 125 (12/17/16) --> 128 (12/17/16) - -> 129 (12/18/16) - PT/OT/ST are following - Pt still quite weak will likely need continued rehab if he improves clinically and can participate - observe mentation - repeat labs in AM - Palliative care has been consulted to help with goals of care (2) Anemia Status: Acute Plan: - likely d/t recent CABG, acute illness, and poor PO intake - serum iron 17, start PO iron - once recovered from current condition, consider screening colonoscopy - Pt was transfused 2 units PRBCs (12/16/16) - Hg 7.3 (12/16/16) --> Hg 10.0 (12/17/16) - Monitor (3) Seizures Status: Acute Plan: - likely d/t hyponatremia - appreciate input from Neurology - EEG (12/15/16) --> no seizure activity - MRI brain (12/15/16) --> NO acute findings - observe (4) UTI (urinary tract infection) Status: Acute Plan: - Pt with noted pyuria on UA on 12/14 - No fever and No leukocytosis - Urine culture growing Klebsiella pneumoniae - Pt was given Levaquin IV x 2 doses (5) Coronary artery disease Status: Chronic Plan: - Pt underwent recent 3V CABG on 11/27/16 - Plavix, ASA, BB, Lipitor (6) HTN (hypertension) Status: Chronic Plan: - stable - BB, ARB (7) Anxiety and depression Status: Chronic Plan: - Ativan PRN Assessment and Plan Patient examined. Assessment and plan formulated with Divina Blue PA-C. I agree with the above. s/p cabg. s/p sz. hyponatremia. general weakness cont current care. pt wants rehab. cont pt. Problem Qualifiers (1) Anemia: Qualified Code: D64.9 - Anemia, unspecified type (2) Coronary artery disease: Qualified Code: I25.10 - Coronary artery disease involving [place] heart without angina pectoris, unspecified vessel or lesion type (3) HTN (hypertension): Qualified Code: I10 - Essential hypertension Divina Blue Dec 18, 2016 09:47 Christopehr Khan MD Dec 18, 2016 11:51
[2016-12-18] MEDS: SODIUM CHLORIDE 23.4% INJ 188 MEQ in SODIUM CHLOR 0.9% 1000 ML INJ 1,000 ML IV SCH ×2 (11:45→22:02)
[2016-12-18] MEDS: IBUPROFEN 400 MG TAB PO PRN (12:08)
--- NOTE | 2016-12-18 14:51 | PD.CONS ---
Consult Service Palliative Care . Consult Requested By Dr. Tapia . Primary Care Physician No Primary Care Physician . Reason for Consultation a. To assist with evaluation and management of symptoms including: confusion , lethargy, anorexia b. To assist medical decision maker(s) with: better understanding of current medical conditions; weighing benefits/burdens of medical treatment options; making medical treatment decisions. . HPI History of Present Illness This is the 2nd acute care [facility] hospitalization since 11/27/16 for this 81 y/o male who underwent 3-vessel CABG on 12/01/16 and who was transferred back to the hospital from [facility] on 12/14/16 with complaints of increasing pedal edema and wheezing and then two possible seizure events. Mr. Canchola has a known history of hypertension, hyperlipidemia. CAD, rheumatoid arthritis, V tach, and prostate cancer. He was initially admitted to [facility] in [place] with chest pain consistent with unstable angina. W /u there including cardiac catheterization, showed significant multi-vessel coronary artery stenosis . He was transferred here to [place] and underwent 3- vessel coronary bypass surgery. He did well and was discharged to [place] rehab on 12/06/16. In [place], he was noted to have small pressure ulcers on buttock and sacrum. Urinary retention was an issue -- urology was consulted and a brody catheter was placed. Post op pain control was doing fine. He reportedly had some intermittent hallucinations and confusion. Sleep was an issue. Mr. Canchola remained at [place] until 12/14/16. On that day, he began with the respiratory symptoms noted above. CXR showed evidence of CHF with increased pulmonary vasuclature. Diuretics were increased. Lab came back remarkable for a Na of 124. Around 2130 in the evening, the family noted rigidity and then seizure type activity lasting about 15 seconds. There was no post-ictal phase. 's daughter has a seizure disorder and felt this was seizure activity but did comment that the patient seemed himself immediately afterward. Blood work was repeated and the Na came back at 122. 15 minutes later a second seizure-type event occurred. This "seizure" activity was quite different then a long-standing mild hand tremor the patient had. The patient was transferred back to the acute care setting under the care of the hospitalist service. Neurology was consulted. EEG showed evidence of mild encephalopathy; there was some tremors/shaking that did not have any epileptic correlation. Brain MRI was negative for acute intracranial pathology. Neurology felt the possible seizures may have been due to the hyponatremia. The patient continues to have myoclonic type shaking even after sodium has gone up to 128. Hg was noted to be down to 7.3 on 12/16/16. The patient received 2 units of PRBCs. Urine culture from 12/14/16 came back positive for Klebse[place]. Since , the lab work has been improving and respiratory symptoms have improved and the patient is tolerating PO nutrition/hydration but eating little. Nevertheless, he remains confused. At time of my visit, he is sleeping. He awakens to voice and exam, but quickly drifts back to sleep . He answers my questions with eyes closed. He denies pain, SOB. He says he is exhausted because he had a hard day with hallucinations and a lot of myoclonic jerking yesterday. Denies hallucinations today. Patient has not received opiates recently. He received lorazepam at 12/17/16 at 21:15. Nursing pain assessments today were #4 and #2. Function/Cognitive Trajectory Mr. Canchola has had exertional chest pain and SOB for 4-5 years. He saw a veterans service officer regularly. It wasn't until chest pains and dyspnea were daily that the cardiac cath was recommended leading up to this admission. Mr. Canchola is normally quite sedentery but not due to illness. He is is just content to sit and watch TV. He normally takes care of all his ADLs and ambulates fine without assistive device. He would have arthritic pain in his knees which was easily managed with Celebrex. It would take a few steps for his knees to un-gel if he had been sitting a long time. Mr. Canchola has suffered from a severe depression about every 10 years. He had an episode about 2 years ago that lasted 9 months. It was finally helped by mirtazapine which he remains on. notes that he has seemed discouraged when rehab was not progressing, but he has not seemed depressed to her. . Review of Systems Constitutional: COMPLAINS OF: Fatigue, Weight loss, Change in appetite, Pain, Generalized weakness, DENIES: Fever, Dizziness Eyes: COMPLAINS OF: Vision loss (wears glasses), DENIES: Eye pain Ears, nose, mouth, throat: DENIES: Hearing loss, Oral lesions, Throat pain, Running Nose, Epistaxis, Toothache Respiratory: COMPLAINS OF: Cough, Snoring, Wheezing, Shortness of breath, DENIES: Apneas, Hemoptysis Cardiovascular: COMPLAINS OF: Chest pain, Dyspnea on Exertion, DENIES: Palpitations, Syncope, Claudication Gastrointestinal: COMPLAINS OF: Anorexia, Dyspepsia or heartburn, DENIES: Abdominal pain, Black stools, Bloody stools, Constipation, Diarrhea, Nausea, Vomiting, Vomiting blood Genitourinary: COMPLAINS OF: Decreased stream (Had some urinary retention in the hospital requiring a brody catheter.), DENIES: Hematuria, Dysuria Musculoskeletal: COMPLAINS OF: Joint pain, DENIES: Neck pain Integumentary: DENIES: Non-healing sores Hematologic/Lymphatics: COMPLAINS OF: History of transfusions, DENIES: Bruising, Prolonged bleed w/ proced Neurologic: COMPLAINS OF: Seizures, Tremor, DENIES: Headache, Localized weakness, Paresthesias Psychiatric: COMPLAINS OF: Anxiety, Confusion, Depression, Hallucinations Past Family Social History Coded Allergies: HMG-CoA Reductase Inhibitors (Verified Adverse Reaction, Unknown, 12/13/16) Past Medical History CAD -- had been having 4-5 years of chest pain and dyspnea with exertion leading up to recent CABG COPD Prostate cancer Hypertension Rheumatoid arthritis Hyperlipidemia Hx of V tach. Multi-valvular insufficiency Depression -- will get a severe clinical depression about every 10 years. . Past Surgical History CABG Right inguinal hernia repair 1955 and again right hand tendon surgery for extensive rheumatoid arthritis Prostate biopsy 2001 Seed implant for prostate cancer 2002 Bilateral cataract surgery Surgery for detached retina Skin cancer removed from nose Circumcision 2015. . Reported Medications Pre-hospital medications in rehab included the following: Metoprolol Tartrate 75 Mg Tab 75 Mg PO BID Potassium Chloride ER (Potassium Chloride) 20 Meq Tab 20 Meq PO DAILY Lasix (Furosemide) 40 Mg Tab 40 Mg PO DAILY Dok (Docusate Sodium) 100 Mg Cap 100 Mg PO BID hold for diarrhea Lipitor (Atorvastatin Calcium) 40 Mg Tab 40 Mg PO HS Amiodarone (Amiodarone HCl) 200 Mg Tab 200 Mg PO Q12HR Aspirin 81 Mg Chew 81 Mg CHEW DAILY Multiple Vitamin 1 Tab 1 Tab PO DAILY Celebrex (Celecoxib) 200 Mg Cap 200 Mg PO DAILY Clopidogrel (Clopidogrel Bisulfate) 75 Mg Tab 75 Mg PO DAILY Terazosin (Terazosin HCl) 2 Mg Cap 2 Mg PO HS Valsartan 160 Mg Tab 160 Mg PO DAILY Pantoprazole (Pantoprazole Sodium) 40 Mg Tab 40 Mg PO DAILY Metoprolol Tartrate 25 Mg Tab 25 Mg PO HS PRN pt takes 1/2 of the 25mg po tab at night Lumigan Opth Drops (Bimatoprost) 0.01% Soln 1 Drop EACH EYE HS Mirtazapine 30 Mg Tab 30 Mg PO HS . Current Medications Medications (Trade) Dose Ordered Sig/Cheng Route Start Time Stop Time Status Last Admin (NS Flush) 2 ml UNSCH PRN FLUSH 12/14/16 23:30 (NS Flush) 2 ml BID FLUSH 12/15/16 09:00 12/18/16 09:04 (Tylenol) 650 mg Q4H PRN PO 12/14/16 23:30 12/16/16 14:00 (Ativan Inj) 1 mg Q5M PRN IV PUSH 12/14/16 23:45 12/17/16 21:15 (Desyrel) 25 mg HS PO 12/15/16 21:00 12/17/16 21:13 (Lopressor) 12.5 mg HS PO 12/15/16 21:00 12/17/16 21:13 (Flomax) 0.4 mg HS PO 12/15/16 21:00 12/17/16 21:13 (KCl) 20 meq Q12HR PO 12/15/16 09:00 12/18/16 09:04 (Colace) 100 mg BID PO 12/15/16 09:00 12/18/16 09:04 (Miralax) 17 gm DAILY PO 12/15/16 09:00 12/17/16 08:05 (Theragran) 1 tab DAILY PO 12/15/16 09:00 12/18/16 09:04 (Diovan) 160 mg DAILY PO 12/15/16 09:00 12/18/16 09:04 (Plavix) 75 mg DAILY PO 12/15/16 09:00 12/18/16 09:04 (Aspirin Chew) 81 mg DAILY PO 12/15/16 09:00 12/18/16 09:04 (Tessalon) 100 mg TID PRN PO 12/15/16 00:30 (Cordarone) 200 mg Q12HR PO 12/15/16 09:00 12/18/16 09:04 (Remeron) 30 mg HS PO 12/15/16 21:00 12/17/16 21:14 (Xalatan 0.005% Opth Soln) 1 drop HS EACH EYE 12/15/16 21:00 12/17/16 21:00 ([place] 5-325 Mg) 0.5 tab Q4H PRN PO 12/15/16 05:30 (Narcan Inj) 0.4 mg UNSCH PRN IV 12/15/16 05:30 Furosemide 40 mg 40 mg BID@09,18 IV PUSH 12/15/16 18:00 12/18/16 09:04 (Sodium Chloride 23.4% Inj/NS 1000 ml Inj) 1,047 ml @ 40 mls/hr Q24H IV 12/15/16 11:45 12/17/16 11:45 (Motrin) 400 mg Q6H PRN PO 12/17/16 11:30 12/18/16 12:08 (Robitussin Dm 200-20 Mg/10 ml Liq) 10 ml Q6H PRN PO 12/17/16 11:30 . Family History Mother of liver failure Father of melanoma Sister: Alive with COPD Brother : Alive and well No family history of heart disease. . Substance Use Tobacco: He smoked less than 1 ppd -- quit at least 30 years ago Alcohol: No hx of abuse Prescription med abuse: No abuse Illicits: No known use of illicits. . Psychosocial History [place]. College educated. 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 No experience. twice. Has been to [place] for 16 years. Patient has 2 sons from first marriage. They live in [place]. They have both visited , but per , are not very involved. has a daughter from her first marriage -- Karen Sosa. Karen is a hospice nurse with [employer] and is very involved. . Spiritual/Cultural Factors Alevism and spirituality are an important part of the patient's life. He and his are members of the [employer]. Their own resource director visits and they decline hospital bpm solution architect. . Living Will: Copy in medical record Health Care Surrogate: Copy in medical record Date completed: Living will and health care surrogate are combined in one document and dated . Health Care Surrogate(s): Aliza Canchola (spouse) is primary; Karen Sosa (step-daughter) is secondary; Giorgio Canchola is tertiary. . Documented care wishes: Living will is standard living will stating he would not want life prolonging measures if he were felt to have a terminal or end stage condition. . Today's verbally stated goals: Patient is too lethargic to discuss goals. . Family/friends goals: Spouse reports goals remain aggressive for now. She saw him improving after surgery until he developed the hyponatremia. She is hoping that once the sodium is fully corrected, he will be able to start gaining strength once again. . Ethical and Legal Issues Patient is lethargic with intermittent confusion and intermittent hallucinations. He will require at least shared decision making with this health care surrogate until he is more consistently capacitated. ,. Physical Exam Vital Signs Date Time Temp Pulse Resp B/P Pulse Ox O2 Delivery O2 Flow Rate FiO2 12/18/16 13:08 16 12/18/16 07:38 95.9 74 17 130/76 98 12/18/16 04:12 95.5 72 18 125/69 95 12/18/16 00:15 98.0 79 17 121/62 97 12/17/16 20:08 98.4 101 19 123/59 94 12/17/16 20:00 96 Nasal Cannula 2.00 12/17/16 19:57 96 Nasal Cannula 1.00 12/17/16 16:59 96.6 96 17 142/73 96 . 12/17/16 12/18/16 19:00 07:00 Intake Total 690 ml 1426 ml Output Total 1450 ml 900 ml Balance -760 ml 526 ml Intake Oral 690 ml 620 ml IV Total 806 ml Output Urine Total 1450 ml 900 ml # Voids 0 # Bowel Movements 0 1 . Exam CONSTITUTIONAL/GENERAL: This is an adequately nourished patient, sleeping in a general medical bed. He awakens to voice, quickly closes his eyes and tells me how exhausted he is. No apparent distress. TUBES/LINES/DRAINS: Heplock LUE; nasal cannula 02; brody catheter; SCDs SKIN: No jaundice, rashes, or lesions. Ecchymoses on upper extremities. Healing sternotomy wound. Dressing over coccyx wound. Skin temperature appropriate. Not diaphoretic. HEAD: Atraumatic. Normocephalic. EYES: Pupils equal and round. Extraocular motions intact. No scleral icterus. No injection or drainage. Fundi not examined. ENT: Hearing grossly normal. Nose without bleeding or purulent drainage. Throat without visible erythema, exudates, masses, or lesions. NECK: Trachea midline. Supple, nontender. No palpable thyroid enlargement or nodularity. CARDIOVASCULAR: Regular rate and rhythm without murmurs, gallops, or rubs. No JVD. Peripheral pulses symmetric. RESPIRATORY/CHEST: Symmetric, unlabored respirations. Clear to auscultation. Breath sounds equal bilaterally but shallow. No wheezes, rales, or rhonchi. GASTROINTESTINAL: Abdomen soft, non-tender, nondistended. No hepato-splenomegaly , or palpable masses. No guarding. Bowel sounds present. GENITOURINARY: Without palpable bladder distension. Brody catheter in place. MUSCULOSKELETAL: Extremities without clubbing, cyanosis. 1+ upper extremity edema. No joint tenderness noted. No calf tenderness with SCDs in place. No mottling or clubbing. LYMPHATICS: No palpable cervical or supraclavicular adenopathy. NEUROLOGICAL: Sleepy and lethargic. Awakens to voice but quickly closes his eyes. Tries to answer questions with eyes closed. Moves all extremities. No seizure activity or tremor noted. PSYCHIATRIC: No obvious anxiety/depression. No apparent hallucinations or other psychotic thought process. . Diagnostic Tests Laboratory Laboratory Tests Test 12/15/16 12/15/16 12/16/16 12/16/16 14:14 21:53 01:22 10:20 Sodium Level 122 MEQ/L 123 MEQ/L 122 MEQ/L 124 MEQ/L (136-145) (136-145) (136-145) (136-145) Potassium Level 3.9 MEQ/L 4.0 MEQ/L (3.5-5.1) (3.5-5.1) Chloride Level 87 MEQ/L 88 MEQ/L (98-107) (98-107) Carbon Dioxide Level 30.2 MEQ/L 29.6 MEQ/L (21.0-32.0) (21.0-32.0) Anion Gap 5 MEQ/L (5-15) 6 MEQ/L (5-15) Blood Urea Nitrogen 10 MG/DL (7-18) 10 MG/DL (7-18) Creatinine 0.95 MG/DL 0.96 MG/DL (0.60-1.30) (0.60-1.30) Estimat Glomerular Filtration 76 ML/MIN (>89) 75 ML/MIN (>89) Rate Random Glucose 110 MG/DL 101 MG/DL (74-106) (74-106) Calcium Level 7.5 MG/DL 7.8 MG/DL (8.5-10.1) (8.5-10.1) Magnesium Level 1.7 MG/DL (1.5-2.5) White Blood Count 6.7 TH/MM3 (4.0-11.0) Red Blood Count 2.40 MIL/MM3 (4.50-5.90) Hemoglobin 7.3 GM/DL (13.0-17.0) Hematocrit 21.1 % (39.0-51.0) Mean Corpuscular Volume 87.7 FL (80.0-100.0) Mean Corpuscular Hemoglobin 30.6 PG (27.0-34.0) Mean Corpuscular Hemoglobin 34.9 % Concent (32.0-36.0) Red Cell Distribution Width 14.0 % (11.6-17.2) Platelet Count 261 TH/MM3 (150-450) Mean Platelet Volume 7.7 FL (7.0-11.0) Neutrophils (%) (Auto) 72.6 % (16.0-70.0) Lymphocytes (%) (Auto) 8.7 % (9.0-44.0) Monocytes (%) (Auto) 17.6 % (0.0-8.0) Eosinophils (%) (Auto) 0.6 % (0.0-4.0) Basophils (%) (Auto) 0.5 % (0.0-2.0) Neutrophils # (Auto) 4.8 TH/MM3 (1.8-7.7) Lymphocytes # (Auto) 0.6 TH/MM3 (1.0-4.8) Monocytes # (Auto) 1.2 TH/MM3 (0-0.9) Eosinophils # (Auto) 0.0 TH/MM3 (0-0.4) Basophils # (Auto) 0.0 TH/MM3 (0-0.2) CBC Comment DIFF FINAL Differential Comment Reticulocyte Count 4.3 % (0.4-3.0) Absolute Reticulocyte Count 103.5 MIL/L (20.0-150.0) Iron Level 16 MCG/DL (65-175) Total Iron Binding Capacity 196 MCG/DL (250-450) Percent Iron Saturation 8.2 % (20-50) Ferritin 940 NG/ML (26-388) Lactate Dehydrogenase 265 U/L (87-241) Test 12/16/16 12/17/16 12/17/16 12/18/16 16:25 06:34 16:30 03:12 Sodium Level 125 MEQ/L 125 MEQ/L 128 MEQ/L 129 MEQ/L (136-145) (136-145) (136-145) (136-145) Potassium Level 3.8 MEQ/L 3.9 MEQ/L 3.9 MEQ/L 4.0 MEQ/L (3.5-5.1) (3.5-5.1) (3.5-5.1) (3.5-5.1) Chloride Level 88 MEQ/L 87 MEQ/L 91 MEQ/L 92 MEQ/L (98-107) (98-107) (98-107) (98-107) Carbon Dioxide Level 29.3 MEQ/L 28.3 MEQ/L 31.0 MEQ/L 28.1 MEQ/L (21.0-32.0) (21.0-32.0) (21.0-32.0) (21.0-32.0) Anion Gap 8 MEQ/L (5-15) 10 MEQ/L (5-15) 6 MEQ/L (5-15) 9 MEQ/L (5-15) Blood Urea Nitrogen 11 MG/DL (7-18) 10 MG/DL (7-18) 12 MG/DL (7-18) 13 MG/DL (7- 18) Creatinine 1.11 MG/DL 0.94 MG/DL 1.10 MG/DL 0.93 MG/DL (0.60-1.30) (0.60-1.30) (0.60-1.30) (0.60-1.30) Estimat Glomerular Filtration 63 ML/MIN (>89) 77 ML/MIN (>89) 64 ML/MIN (>89) 78 ML/MIN (>89) Rate Random Glucose 114 MG/DL 100 MG/DL 104 MG/DL 106 MG/DL (74-106) (74-106) (74-106) (74-106) Calcium Level 7.1 MG/DL 7.6 MG/DL 7.5 MG/DL 7.8 MG/DL (8.5-10.1) (8.5-10.1) (8.5-10.1) (8.5-10.1) Protein Corrected Calcium 8.0 MG/DL (8.5-10.1) Total Protein 5.4 GM/DL (6.4-8.2) Blood Type O POSITIVE Antibody Screen NEGATIVE Crossmatch Leukocyte-Reduced Red Blood Cells Blood Bank Comment White Blood Count 5.5 TH/MM3 (4.0-11.0) Red Blood Count 3.35 MIL/MM3 (4.50-5.90) Hemoglobin 10.0 GM/DL (13.0-17.0) Hematocrit 28.6 % (39.0-51.0) Mean Corpuscular Volume 85.5 FL (80.0-100.0) Mean Corpuscular Hemoglobin 29.8 PG (27.0-34.0) Mean Corpuscular Hemoglobin 34.8 % Concent (32.0-36.0) Red Cell Distribution Width 15.1 % (11.6-17.2) Platelet Count 278 TH/MM3 (150-450) Mean Platelet Volume 7.6 FL (7.0-11.0) Neutrophils (%) (Auto) 75.0 % (16.0-70.0) Lymphocytes (%) (Auto) 5.9 % (9.0-44.0) Monocytes (%) (Auto) 17.2 % (0.0-8.0) Eosinophils (%) (Auto) 1.0 % (0.0-4.0) Basophils (%) (Auto) 0.9 % (0.0-2.0) Neutrophils # (Auto) 4.1 TH/MM3 (1.8-7.7) Lymphocytes # (Auto) 0.3 TH/MM3 (1.0-4.8) Monocytes # (Auto) 0.9 TH/MM3 (0-0.9) Eosinophils # (Auto) 0.1 TH/MM3 (0-0.4) Basophils # (Auto) 0.0 TH/MM3 (0-0.2) CBC Comment DIFF FINAL Differential Comment . Result Diagram: 12/17/16 0634 12/18/16 0312 Microbiology * Urine culture from 12/14/16 --> Kle[place]se[place] * Blood cultures from 12/14 were negative. . Imaging Last Impressions Chest X-Ray 12/17/16 0800 Signed Impressions: Service Date/Time: Saturday, December 17, 2016 07:33 - CONCLUSION: 1. Bilateral pleural effusions and probable bibasilar atelectasis. 2. No significant change. Gera Martinez MD Brain MRI 12/15/16 0000 Signed Impressions: Service Date/Time: Thursday, December 15, 2016 14:32 - CONCLUSION: 1. No evidence of acute intracranial pathology. Chronic ischemic changes as above. Nakul Napoles MD Head CT 12/14/16 0000 Signed Impressions: Service Date/Time: Thursday, December 15, 2016 10:46 - CONCLUSION: Atrophy, otherwise negative Antonio Ryan MD FACR . Procedures * CABG x 3 on 12/01/16 . Patient/Family Conference Present at Family Conference: Spouse . Family Conference Time (mins): 55 Family Conference Location: Consult Room Issues Discussed: * Palliative care role, purpose, approach * Additional medical, psychosocial, and spiritual history * Patients general health, functional status, and cognitive changes in the months leading up to the current hospitalization * Patient/family understanding of the current medical problems * Patient/family understanding of prognosis * Patients goals of care as best understood from advance directives and/or conversations and/or values * Current medical treatment options and benefits/burdens of those options * Likely scenarios comparing ongoing aggressive care with a transition to comfort measures only * Questions answered to the best of my ability * Palliative care contact information provided . Assessment and Plan Disease Oriented Problem List: (1) Coronary artery disease Comment: Longstanding CAD -- underwent CABG x 3 in November 2016. ,. (2) S/P CABG x 3 Comment: Surgery on 12/01/16 (3) Seizures Comment: If these indeed were real seizure activity, were probably secondary to hyponatremia. I am also concerned about the possibility of SEROTONIN SYNDROME. Patient normally takes mirtazapine AND trazodone. This may have been tolerated while eating and drinking normally and well hydrated but may have become problematic post surgery. Also, Dextromethorphan was added on 12/14 . (4) Anemia Comment: Has been transfused x 2 units during this hosptialization. . (5) Hyponatremia Comment: Unclear if this was fluid overload, diurectic therapy, or SIADH. . (6) severe rheumatoid arthritis Comment: Most of his pain has been in the knees, and this was managed with Celebrex alone. . (7) TSH elevation Comment: Unclear if this is true hypothyroidism or TSH elevation secondary to acute non-thyroidal disease or secondary to amiodarone. . (8) Hypoalbuminemia Comment: Not currently meeting nutritional needs. . (9) Hypertension (10) Hyperlipemia Symptom Scale: (1) Pain 0-10 Scale: 0 Comment: Possible sources of pain include post-operative pain at sternotomy site; wound pain; discomfort from brody cathter and vascular access; pain from prolonged bedbound status; arthritis pain. . (2) Confusion 0-10 Scale: Unable to quantify Comment: Cause of confusion is uncertain. Possible hypoactive delirium, metabolic issues, UTI, hypothyroidism, depression, extreme fatigue/de- conditioning, etc. . (3) Lethargy 0-10 Scale: Unable to quantify Comment: Possible causes of lethargy probably similar to possible causes of confusion. . (4) Anorexia 0-10 Scale: Unable to quantify (Lost his appetite ) Comment: Has had little appetite since his surgery. In rehab, he would eat if encouraged. Back on the medical floor, he is eating little even with encouragement. . Pertinent Non-Medical Issues Psychosocial: well supported by spouse. Lives in [place]. Two sons and a stepdaughter live in [place]. Spiritual: Alevism and spirituality are very important. Members of [employer]. Their resource director is providing spiritual support Legal: Living will and health care surrogate scanned into [employer] Ethical issues impacting care: Patient is lethargic, intermittently confused, and intermittently hallucinating. Recommend at least shared decision making with health care surrogate until he is more consistently capacitated. . Important Contacts * Aliza Canchola (daughter and primary health care surrogate) * Karen Sosa (daughter and secondary health care surrogate); * Giorgio Au Sushant ( tertiary health care surrogate). . Prognosis Patient's surgery was successful and from a cardiac standpoint, he should be able to recover. If the patient's failure in rehab is due to an easily correctable problem (e.g. hyponatremia; medication reaction; hypthyroidism; depression; etc) then there is a reasonable chance that he can thrive if the underlying problem is corrected. If the patient is just too debilitated to recover from the surgery, then he may continue to decline. Another factor is whether he will permit artificial nutrition/hydration if he continues to be unable to meet his nutritional needs. . Code Status: Full Code Plan == Code Status: FULL CODE. At this point, patient/family has requested full code and up to 72 hours on life support to assess situation. == Decision making: Patient is intermittently confused and very lethargic with occasional hallucinations. Recommend that his health care surrogate participate in all decision making until such time as he is more consistently capacitated. His primary health care surrogate is his spouse-- Aliza Canchola. == Goals of medical Treatment: Goals remain aggressive. From patient/family perspective, surgery was successful. His current inability to rehab is seen by them to be secondary to correctable problems -- e.g. hyponatremia. They want these correctable problems addressed and then give him a chance to see how he does. == Concern for possible serotonin syndrome given some continued myoclonus in spite of sodium correction. Mirtazapine, trazodone, dextromethorphan could all contribute. Pt was on the former prior to surgery, but perhaps with impaired nutrition, electrolyte abnormalities, etc., former doses were too much. Trazodone can be stopped altogether -- the current dose may be helping for sleep , but is probably too low to be making a difference for depression. Alternate sleep medication could be provided -- in fact benzos are first line therapy if we are considering serotonin syndrome. Recommend lowering dose of mirtazapine to 15 mg QD . Would also DC the dextromethorphan order. Reluctant to stop the mirtazapine altogether as patient had a severe depression that was resistant to other anti-depressants. == Elevated TSH: Though the TSH elevation at 7.8 on 12/14/16 may be from non- thryoidal acute illness or from amiodarone therapy, given other symptoms (e.g. lethargy, low temps, etc) could be due to hypothyroidism, may want to consider full thyroid function studies. == Amiodarone, mirtazapine, and trazodone are all QT prolongers as is Levaquin (now DCd). May want to follow EKG if these are continued given recent heart surgery and history of dysrhythmia. == Pain: Pain was not a major problem for the patient prior to his heart surgery. He has rheumatoid arthritis with accompanying knee pain. This was controlled at home with Celebrex. He has other possible sources of discomfort now -- recent open heart surgery; prolonged bedbound status; pressure sore; brody catheter; vascular access; muscle soreness from myoclonus; etc. Acetaminophen and hydrocodone are available. No further recommendations at this time. == Lethargy: Probably multi-factorial including deconditioning, possible thyroid dysfunction; fatigue from myoclonus; medication reaction; depression; etc. == Confusion: Probably multi-factorial as above. . Time Spent Total Floor Time (mins): 90 (Total time included chart review; patient exam; telephone conversation with Dr. Tapia; and above referenced family conference. ) Face to Face Time (mins): 10 >50% Counseling/Coord of Care: Yes Thank you for the opportunity to participate in the care of Mr. Canchola. . Attestation To help prompt me to consider important information that might be impacting today's encounter and assessment, information from prior notes written by myself or my colleagues may have been "brought forward" into today's note. My signature on this note, however, is an attestation that I personally performed the exam, history, and/or decision-making noted today, and, unless otherwise indicated, the interactions with patient, family, and staff as well as the review of records all occurred today. I also attest that the listed assessment and stated plan reflect my best clinical judgment today based on the combination of historical information, prior notes, and today's exam/ interactions. When time spent is documented, it refers only to time spent today by the signer, or if indicated, combined time spent today by collaborating physician/nurse practitioner. . Jose Arthur MD Dec 18, 2016 14:51
[2016-12-18] MEDS: TAMSULOSIN HCL 0.4 MG CAP PO SCH (20:48)
[2016-12-18] MEDS: MIRTAZAPINE 15 MG TAB PO SCH (20:48)
[2016-12-18] MEDS: LATANOPROST 0.005% OPHT SOLN 2.5 ML BTL EACH EYE SCH (20:49)
[2016-12-18] MEDS: METOPROLOL TARTRATE 25 MG TAB PO SCH (20:50)
[2016-12-19] VITALS (9 sets, daily range): BP systolic 105–165; BP diastolic 59–70; PULSE 76–87; RESP 17–19; TEMP 96.3–98.2; O2SAT 95–98
[2016-12-19 05:09] LABS: AUTOMATED NEUTROPHIL # 2.8 TH/MM3 (1.8-7.7); BASOPHIL # 0.1 TH/MM3 (0-0.2); BASOPHIL % 1.3 % (0.0-2.0); EOSINOPHIL # 0.2 TH/MM3 (0-0.4); EOSINOPHIL % 4.3 % (0.0-4.0); HEMATOCRIT 30.4 % (39.0-51.0); HEMO FLAGS DIFF FINAL; LYMPHOCYTE # 0.6 TH/MM3 (1.0-4.8); MEAN CELL VOLUME 86.1 FL (80.0-100.0); MEAN CORPUSCULAR HEMOGLOBIN 30.2 PG (27.0-34.0); MONO % 19.2 % (0.0-8.0); NEUT % 62.2 % (16.0-70.0); PLATELET COUNT 315 TH/MM3 (150-450); RED BLOOD COUNT 3.53 MIL/MM3 (4.50-5.90); RED CELL DISTRIBUTION WIDTH 14.8 % (11.6-17.2); WHITE BLOOD COUNT 4.4 TH/MM3 (4.0-11.0)
[2016-12-19 05:37] LABS: BICARBONATE 29.7 MEQ/L (21.0-32.0); MAGNESIUM 2.2 MG/DL (1.5-2.5); POTASSIUM 4.6 MEQ/L (3.5-5.1)
[2016-12-19] MEDS: ACETAMINOPHEN 325 MG TAB PO PRN (08:43)
[2016-12-19] MEDS: MULTIVITAMIN TAB PO SCH (08:43)
[2016-12-19] MEDS: POTASSIUM CHLORIDE 20 MEQ CONTROLLED RELEASE TAB PO SCH ×2 (08:43→21:08)
[2016-12-19] MEDS: VALSARTAN 160 MG TAB PO SCH (08:43)
[2016-12-19] MEDS: AMIODARONE 200 MG TAB PO SCH ×2 (08:43→21:07)
[2016-12-19] MEDS: DOCUSATE SODIUM 100 MG CAP PO SCH ×2 (08:44→21:07)
[2016-12-19] MEDS: FUROSEMIDE 40 MG/4 ML VIAL IV PUSH SCH (08:44)
[2016-12-19] MEDS: SODIUM CHLORIDE 0.9% FLUSH 5 ML FLUSH FLUSH SCH ×2 (08:44→21:07)
[2016-12-19] MEDS: POLYETHYLENE GLYCOL 17 GM PKG PO SCH (08:44)
[2016-12-19] MEDS: ASPIRIN 81 MG CHEW TAB PO SCH (08:44)
[2016-12-19] MEDS: CLOPIDOGREL 75 MG TAB PO SCH (08:44)
--- NOTE | 2016-12-19 09:18 | HHI.PR ---
Subjective Remarks Pt seen and examined. Confusion has improved. Brody with clear urine. Objective Vital Signs Vital Signs Date Time Temp Pulse Resp B/P Pulse Ox O2 Delivery O2 Flow Rate FiO2 12/19/16 08:04 98 Nasal Cannula 1.00 12/19/16 08:00 96.3 84 19 152/70 97 12/19/16 04:00 96.9 82 17 165/70 97 12/19/16 00:00 96.5 76 17 124/59 97 12/18/16 21:00 92 12/18/16 20:00 97.2 89 16 108/52 95 12/18/16 19:49 97 1.00 12/18/16 15:48 98.3 77 17 132/77 97 12/18/16 13:08 16 12/18/16 11:42 96.0 79 17 135/82 96 12/18/16 09:39 95 Nasal Cannula 1.00 I/O 12/18/16 12/18/16 12/18/16 12/19/16 12/19/16 12/19/16 07:00 15:00 23:00 07:00 15:00 23:00 Intake Total 421 ml 240 ml 240 ml 400 ml Output Total 500 ml 1500 ml 80 ml 300 ml Balance -79 ml -1260 ml 160 ml 100 ml Intake Oral 120 ml 240 ml 240 ml 120 ml IV Total 301 ml 280 ml Output Urine Total 500 ml 1500 ml 80 ml 300 ml # Voids 0 # Bowel Movements 0 0 0 Result Diagram: 12/19/16 0418 12/19/16 0418 Objective Remarks Abd:soft,nt,nd Brody in place. Urine clear. 12/19 Abd:soft,nt,nd Brody in place. Urine clear. 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 Transferred from Rehab due to seizure last PM with hyponatremia. Maintain brody for now Continue Flomax. Will follow. 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 Continue current treatment Continue Flomax Void trial when pt starts to ambulate more in future. Jaycob Morrow DO Dec 19, 2016 09:18
--- NOTE | 2016-12-19 10:42 | HHI.PR ---
Subjective Remarks Pt much more awake and conversive today He states that he is disappointed with having had the setback in his progress at rehab and being back in the hospital now. Objective Vitals Vital Signs Date Time Temp Pulse Resp B/P Pulse Ox O2 Delivery O2 Flow Rate FiO2 12/19/16 08:04 98 Nasal Cannula 1.00 12/19/16 08:00 96.3 84 19 152/70 97 12/19/16 04:00 96.9 82 17 165/70 97 12/19/16 00:00 96.5 76 17 124/59 97 12/18/16 21:00 92 12/18/16 20:00 97.2 89 16 108/52 95 12/18/16 19:49 97 1.00 12/18/16 15:48 98.3 77 17 132/77 97 12/18/16 13:08 16 12/18/16 11:42 96.0 79 17 135/82 96 12/18/16 12/18/16 12/19/16 15:00 23:00 07:00 Intake Total 240 ml 240 ml 400 ml Output Total 1500 ml 80 ml 300 ml Balance -1260 ml 160 ml 100 ml Intake Oral 240 ml 240 ml 120 ml IV Total 280 ml Output Urine Total 1500 ml 80 ml 300 ml # Voids 0 # Bowel Movements 0 0 Result Diagram: 12/19/1641712/19/16417 Imaging Last Impressions Chest X-Ray 12/17/16 0800 Signed Impressions: Service Date/Time: Saturday, December 17, 2016 07:33 - CONCLUSION: 1. Bilateral pleural effusions and probable bibasilar atelectasis. 2. No significant change. Gera Martinez MD Brain MRI 12/15/16 0000 Signed Impressions: Service Date/Time: Thursday, December 15, 2016 14:32 - CONCLUSION: 1. No evidence of acute intracranial pathology. Chronic ischemic changes as above. Nakul Napoles MD Head CT 12/14/16 0000 Signed Impressions: Service Date/Time: Thursday, December 15, 2016 10:46 - CONCLUSION: Atrophy, otherwise negative Antonio Ryan MD FACR Objective Remarks General: NAD, awakens easily from sleep but quickly drifts back to sleep Chest: CTA bilaterally Cardiac: Regular Abd: +BS, soft ND/NT Ext: No edema A/P Problem List: (1) Hyponatremia Status: Acute Plan: - [facility] with seizure activity. - Pt was found to have significant hyponatremia with Na+ 124 - Though to possibly be d/t volume overload, poor nutritional status - Pt was started on NS prior to transfer to my service (Of note, pt had been given Lasix prior to transfer for possible volume overload) - Will eventually need repeat w/u for SIADH when off IVFs - Pt was started on 2% NACL on 12/15 with slow increase from 20ml/hr to 30ml/hr to currently at 40mL/hr - Serial serum Na+ increased to 124 (12/16/16) --> 125 (12/17/16) --> 128 (12/17/16) - -> 129 (12/18/16) - Stop IVF and IV Lasix, pt does not currently appear volume overloaded. Pt with normal systolic function on previous echo and no evidence of diastolic dysfunction noted at that time. - PT/OT/ST are following - Pt still quite weak will likely need continued rehab if he improves clinically and can participate - Pt with noted myoclonus but does have hx of essential tremor per the pt. There is concern regarding possible serotonin syndrome. Pts Mirtazapine is being increased back to 30 mg on 12/20 per 's request, he is having lorazepam substituted for trazodone for sleep. - Encourage PO intake and nursing staff to assist with feeding. - repeat labs in AM (2) Anemia Status: Acute Plan: - likely d/t recent CABG, acute illness, and poor PO intake - serum iron 17, start PO iron - once recovered from current condition, consider screening colonoscopy - Pt was transfused 2 units PRBCs (12/16/16) - Hg 7.3 (12/16/16) --> Hg 10.0 (12/17/16) - Monitor (3) Seizures Status: Acute Plan: - likely d/t hyponatremia - appreciate input from Neurology - EEG (12/15/16) --> no seizure activity - MRI brain (12/15/16) --> NO acute findings - observe (4) UTI (urinary tract infection) Status: Acute Plan: - Pt with noted pyuria on UA on 12/14 - No fever and No leukocytosis - Urine culture growing Klebsiella pneumoniae - Pt was given Levaquin IV x 2 doses (5) Coronary artery disease Status: Chronic Plan: - Pt underwent recent 3V CABG on 11/27/16 - Plavix, ASA, BB, Lipitor (6) HTN (hypertension) Status: Chronic Plan: - stable - BB, ARB (7) Anxiety and depression Status: Chronic Plan: - Ativan PRN Assessment and Plan Patient examined. Assessment and plan formulated with Divina Blue PA-C. I agree with the above. s/p cabg. s/p sz. hyponatremia improving. stop ivf/lasix and recheck na in AM. general weakness. mental status improving. no further sz activity. discussed med changes with Dr Arthur. Pt eager to return back to rehab. Problem Qualifiers (1) Anemia: Qualified Code: D64.9 - Anemia, unspecified type (2) Coronary artery disease: Qualified Code: I25.10 - Coronary artery disease involving [place] heart without angina pectoris, unspecified vessel or lesion type (3) HTN (hypertension): Qualified Code: I10 - Essential hypertension Divina Blue Dec 19, 2016 10:42 Christopher Khan MD Dec 19, 2016 14:01
--- NOTE | 2016-12-19 11:05 | HHI.HCPN ---
Spoke with patient's spouse this AM and discussed possible role of "serotonin syndrome" in patient's observed shaking and tremors. She is VERY averse to reduction in the mirtazapine dose as the patient's depression was so challenging. She reported that the patient had even failed on 22.5 mg of mirtazapine and it wasn't until they were on the 30 mg that he improved. I suggested that he would probably tolerate the 30 mg once again once he was eating/drinking and gaining some strength. She remained against the idea. She also feels that he is already improving. His lethargy seemed to dissipate yesterday evening and he ate dinner reasonably well. She is OK with stopping the trazodone. She reports that the lorazepam seemed to agitate him on the evening of 12/17, but in the past he had successfully used lorazepam for sleep. We also discussed that we were going to do further thyroid function testing. PLAN: 1) Will increase mirtazapine back to 30 mg on 12/20 per 's request. May have to re-visit if there is more myoclonic jerking. 2) Will substitute lorazepam for trazodone for sleep 3) Will avoid other drugs that might increase serotonin levels for now. Jose Arthur MD Dec 19, 2016 11:05
[2016-12-19 12:29] LABS: FREE T4 1.62 NG/DL (0.76-1.46)
[2016-12-19] MEDS: METOPROLOL TARTRATE 25 MG TAB PO SCH (21:08)
[2016-12-19] MEDS: TAMSULOSIN HCL 0.4 MG CAP PO SCH (21:08)
[2016-12-19] MEDS: MIRTAZAPINE 15 MG TAB PO SCH (21:08)
[2016-12-19] MEDS: LATANOPROST 0.005% OPHT SOLN 2.5 ML BTL EACH EYE SCH (21:11)
[2016-12-19] MEDS: LORazepam 0.5 MG TAB PO PRN (21:13)
[2016-12-20] VITALS (10 sets, daily range): BP systolic 123–186; BP diastolic 59–84; PULSE 74–91; RESP 16–20; TEMP 96.9–98.3; O2SAT 93–97
[2016-12-20] MEDS: MULTIVITAMIN TAB PO SCH (09:00)
[2016-12-20] MEDS: DOCUSATE SODIUM 100 MG CAP PO SCH ×2 (09:00→22:16)
[2016-12-20] MEDS: POLYETHYLENE GLYCOL 17 GM PKG PO SCH (09:00)
[2016-12-20] MEDS: CLOPIDOGREL 75 MG TAB PO SCH (09:19)
[2016-12-20] MEDS: POTASSIUM CHLORIDE 20 MEQ CONTROLLED RELEASE TAB PO SCH ×2 (09:19→22:17)
[2016-12-20] MEDS: ASPIRIN 81 MG CHEW TAB PO SCH (09:19)
[2016-12-20] MEDS: VALSARTAN 160 MG TAB PO SCH (09:19)
[2016-12-20] MEDS: AMIODARONE 200 MG TAB PO SCH ×2 (09:19→22:17)
[2016-12-20] MEDS: SODIUM CHLORIDE 0.9% FLUSH 5 ML FLUSH FLUSH SCH ×2 (09:20→22:17)
--- NOTE | 2016-12-20 10:32 | HHI.PR ---
Subjective Remarks eager fo rehab Objective Vitals awake. alert nad heart reg lung diminished bases abd s/nt ext clonus noted. Vital Signs Date Time Temp Pulse Resp B/P Pulse Ox O2 Delivery O2 Flow Rate FiO2 12/20/16 08:59 87 12/20/16 08:00 98.3 74 20 150/74 95 12/20/16 07:30 Nasal Cannula 1.00 12/20/16 05:30 82 147/66 12/20/16 04:00 97.4 79 17 170/74 96 12/20/16 00:00 96.9 76 16 123/59 97 12/19/16 20:00 87 12/19/16 20:00 97 Nasal Cannula 1.00 12/19/16 19:30 96.9 86 19 143/62 12/19/16 17:49 97 Nasal Cannula 1.00 12/19/16 16:20 98.2 85 19 105/65 97 12/19/16 12:00 97.5 87 19 157/68 95 12/19/16 12/19/16 12/20/16 15:00 23:00 07:00 Intake Total 1396 ml 240 ml 120 ml Output Total 1000 ml 350 ml 425 ml Balance 396 ml -110 ml -305 ml Intake Oral 960 ml 240 ml 120 ml IV Total 436 ml Output Urine Total 1000 ml 350 ml 425 ml # Bowel Movements 2 0 0 Result Diagram: 12/19/1641712/19/168 Imaging Last Impressions Chest X-Ray 12/17/16 0800 Signed Impressions: Service Date/Time: Saturday, December 17, 2016 07:33 - CONCLUSION: 1. Bilateral pleural effusions and probable bibasilar atelectasis. 2. No significant change. Gera Martinez MD Brain MRI 12/15/16 0000 Signed Impressions: Service Date/Time: Thursday, December 15, 2016 14:32 - CONCLUSION: 1. No evidence of acute intracranial pathology. Chronic ischemic changes as above. Nakul Napoles MD Head CT 12/14/16 0000 Signed Impressions: Service Date/Time: Thursday, December 15, 2016 10:46 - CONCLUSION: Atrophy, otherwise negative Antonio Ryan MD FACR A/P Problem List: (1) Hyponatremia Status: Acute Plan: - Pt transferred from [facility] on 12/14/16 with seizure activity. - Pt was found to have significant hyponatremia with Na+ 124 - Though to possibly be d/t volume overload, poor nutritional status - Pt was started on NS prior to transfer to our service (Of note, pt had been given Lasix prior to transfer for possible volume overload) - Pt was started on 2% NACL on 12/15 with slow increase from 20ml/hr to 30ml/hr to currently at 40mL/hr - Serial serum Na+ increased to 124 (12/16/16) --> 125 (12/17/16) --> 128 (12/17/16) - -> 129 (12/18/16) - Stop IVF and IV Lasix, pt does not currently appear volume overloaded. Pt with normal systolic function on previous echo and no evidence of diastolic dysfunction noted at that time. - PT/OT/ST are following - Pt still quite weak will likely need continued rehab if he improves clinically and can participate - Pt with noted myoclonus There is concern regarding possible serotonin syndrome. Pts Mirtazapine is being increased back to 30 mg on per 's request, he is having lorazepam substituted for trazodone for sleep. - Encourage PO intake and nursing staff to assist with feeding. na stable. eager for d/c . discussed with Shan. They are planning to ramp up his PT slowly so he can tolerate it. cont brody for bph/obstruction LUTS. d/c today. f/u urology for voiding trial. (2) Anemia Status: Acute Plan: - likely d/t recent CABG, acute illness, and poor PO intake - serum iron 17, start PO iron - once recovered from current condition, consider screening colonoscopy - Pt was transfused 2 units PRBCs (12/16/16) - Hg 7.3 (12/16/16) --> Hg 10.0 (12/17/16) - Monitor (3) Seizures Status: Acute Plan: - likely d/t hyponatremia - appreciate input from Neurology - EEG (12/15/16) --> no seizure activity - MRI brain (12/15/16) --> NO acute findings - observe (4) UTI (urinary tract infection) Status: Acute Plan: - Pt with noted pyuria on UA on 12/14 - No fever and No leukocytosis - Urine culture growing Klebsiella pneumoniae - Pt was given Levaquin IV x 2 doses (5) Coronary artery disease Status: Chronic Plan: - Pt underwent recent 3V CABG on 11/27/16 - Plavix, ASA, BB, Lipitor (6) HTN (hypertension) Status: Chronic Plan: - stable - BB, ARB (7) Anxiety and depression Status: Chronic Plan: - Ativan PRN Problem Qualifiers (1) Anemia: Qualified Code: D64.9 - Anemia, unspecified type (2) Coronary artery disease: Qualified Code: I25.10 - Coronary artery disease involving [place] heart without angina pectoris, unspecified vessel or lesion type (3) HTN (hypertension): Qualified Code: I10 - Essential hypertension Christopher Khan MD Dec 20, 2016 10:32
--- NOTE | 2016-12-20 11:47 | HHI.HCPN ---
Reason for visit a. To assist with evaluation and management of symptoms including: confusion , lethargy, anorexia, insomnia b. To assist medical decision maker(s) with: better understanding of current medical conditions; weighing benefits/burdens of medical treatment options; making medical treatment decisions. . Subjective/Interval History Mr. Canchola is sleeping but easily awakens at time of my visit. He is mentally sharp and answers questions appropriately. He smiles and is able to joke with examiner. Patient denies pain or SOB. Review of meds showed he took a [place] 5- 325 but he cannot recall that or what pain he might have been having at the time. He is not aware of any further shaking episodes or hallucinations. He feels his appetite is beginning to improve and he ate a reasonably good breakfast. He does report sleeping poorly last night -- trazodone was stopped and mirtazapine was halved but he took 0.5 mg of lorazepam. Denies depression - - tells me his "spirits" are holding up OK. Temps still tending on the low side. Variable BPs. Urine output good. Stooling. No new CBC. Free T4 1.62. TSH 3.85. From Dr. Arthur's initial palliative care consultation note of 12/18/16... This is the 2nd acute care [facility] hospitalization since 11/27/16 for this 81 y/o male who underwent 3-vessel CABG on 12/01/16 and who was transferred back to the hospital from [facility] on 12/14/16 with complaints of increasing pedal edema and wheezing and then two possible seizure events. Mr. Canchola has a known history of hypertension, hyperlipidemia. CAD, rheumatoid arthritis, V tach, and prostate cancer. He was initially admitted to [facility] in [place] with chest pain consistent with unstable angina. W /u there including cardiac catheterization, showed significant multi-vessel coronary artery stenosis . He was transferred here to [place] and underwent 3- vessel coronary bypass surgery. He did well and was discharged to [facility] on 12/06/16. In [facility], he was noted to have small pressure ulcers on buttock and sacrum. Urinary retention was an issue -- urology was consulted and a brody catheter was placed. Post op pain control was doing fine. He reportedly had some intermittent hallucinations and confusion. Sleep was an issue. Mr. Canchola remained at [facility] until 12/14/16. On that day, he began with the respiratory symptoms noted above. CXR showed evidence of CHF with increased pulmonary vasuclature. Diuretics were increased. Lab came back remarkable for a Na of 124. Around 2130 in the evening, the family noted rigidity and then seizure type activity lasting about 15 seconds. There was no post-ictal phase. 's daughter has a seizure disorder and felt this was seizure activity but did comment that the patient seemed himself immediately afterward. Blood work was repeated and the Na came back at 122. 15 minutes later a second seizure-type event occurred. This "seizure" activity was quite different then a long-standing mild hand tremor the patient had. The patient was transferred back to the acute care setting under the care of the hospitalist service. Neurology was consulted. EEG showed evidence of mild encephalopathy; there was some tremors/shaking that did not have any epileptic correlation. Brain MRI was negative for acute intracranial pathology. Neurology felt the possible seizures may have been due to the hyponatremia. The patient continues to have myoclonic type shaking even after sodium has gone up to 128. Hg was noted to be down to 7.3 on 12/16/16. The patient received 2 units of PRBCs. Urine culture from 12/14/16 came back positive for [place]. Since , the lab work has been improving and respiratory symptoms have improved and the patient is tolerating PO nutrition/hydration but eating little. Nevertheless, he remains confused. At time of my visit, he is sleeping. He awakens to voice and exam, but quickly drifts back to sleep . He answers my questions with eyes closed. He denies pain, SOB. He says he is exhausted because he had a hard day with hallucinations and a lot of myoclonic jerking yesterday. Denies hallucinations today. Patient has not received opiates recently. He received lorazepam at 12/17/16 at 21:15. Nursing pain assessments today were #4 and #2. Family/friend interactions No family at bedside. See note from 12/19 regarding spouse's strong desire to keep the mirtazapine at 30 mg /d. . Advance Directives Living Will: Copy in medical record Health Care Surrogate: Copy in medical record Advance Directive Specifics Date completed: Living will and health care surrogate are combined in one document and dated . Health Care Surrogate(s): Aliza Canchola (spouse) is primary; Karen Sosa (step-daughter) is secondary; Giorgio Canchola is tertiary. . Documented care wishes: Living will is standard living will stating he would not want life prolonging measures if he were felt to have a terminal or end stage condition. . Objective Vital Signs Date Time Temp Pulse Resp B/P Pulse Ox O2 Delivery O2 Flow Rate FiO2 12/20/16 08:59 87 12/20/16 08:00 98.3 74 20 150/74 95 12/20/16 07:30 Nasal Cannula 1.00 12/20/16 05:30 82 147/66 12/20/16 04:00 97.4 79 17 170/74 96 12/20/16 00:00 96.9 76 16 123/59 97 12/19/16 20:00 87 12/19/16 20:00 97 Nasal Cannula 1.00 12/19/16 19:30 96.9 86 19 143/62 12/19/16 17:49 97 Nasal Cannula 1.00 12/19/16 16:20 98.2 85 19 105/65 97 12/19/16 12:00 97.5 87 19 157/68 95 . Physical Exam CONSTITUTIONAL/GENERAL: This is an adequately nourished patient. He awakens to voice, then is alert, interactive, smiles. No apparent distress. TUBES/LINES/DRAINS: nasal cannula 02; brody catheter; SKIN: No jaundice, rashes, or lesions. Ecchymoses on upper extremities. Healing sternotomy wound. Skin temperature appropriate. Not diaphoretic. HEAD: Atraumatic. Normocephalic. EYES: Pupils equal and round. Extraocular motions intact. No scleral icterus. No injection or drainage. Fundi not examined. ENT: Hearing grossly normal. Nose without bleeding or purulent drainage. Throat without visible erythema, exudates, masses, or lesions. NECK: Trachea midline. Supple CARDIOVASCULAR: Regular rate and rhythm without murmurs, gallops, or rubs. No JVD. Peripheral pulses symmetric. RESPIRATORY/CHEST: Symmetric, unlabored respirations. Clear to auscultation. Breath sounds equal bilaterally but diminished. No wheezes, rales, or rhonchi. GASTROINTESTINAL: Abdomen soft, non-tender, nondistended. No hepato-splenomegaly , or palpable masses. No guarding. Bowel sounds present. GENITOURINARY: Without palpable bladder distension. MUSCULOSKELETAL: Extremities without clubbing, cyanosis. 1+ upper extremity edema. No calf tenderness. No mottling or clubbing. LYMPHATICS: Not examined. NEUROLOGICAL: Awake, alert, interactive. No seizure, tremor, myoclonus noted. Moves all extremities. Cognitively sharp. PSYCHIATRIC: No obvious anxiety/depression. No apparent hallucinations or other psychotic thought process. . Diagnostic Tests Laboratory Laboratory Tests Test 12/17/16 12/18/16 12/19/16 16:30 03:12 04:18 Sodium Level 128 MEQ/L 129 MEQ/L 129 MEQ/L (136-145) (136-145) (136-145) Potassium Level 3.9 MEQ/L 4.0 MEQ/L 4.6 MEQ/L (3.5-5.1) (3.5-5.1) (3.5-5.1) Chloride Level 91 MEQ/L 92 MEQ/L 92 MEQ/L (98-107) (98-107) (98-107) Carbon Dioxide Level 31.0 MEQ/L 28.1 MEQ/L 29.7 MEQ/L (21.0-32.0) (21.0-32.0) (21.0-32.0) Anion Gap 6 MEQ/L (5-15) 9 MEQ/L (5-15) 7 MEQ/L (5-15) Blood Urea Nitrogen 12 MG/DL (7-18) 13 MG/DL (7-18) 15 MG/DL (7-18) Creatinine 1.10 MG/DL 0.93 MG/DL 0.94 MG/DL (0.60-1.30) (0.60-1.30) (0.60-1.30) Estimat Glomerular Filtration 64 ML/MIN (>89) 78 ML/MIN (>89) 77 ML/MIN (>89) Rate Random Glucose 104 MG/DL 106 MG/DL 97 MG/DL (74-106) (74-106) (74-106) Calcium Level 7.5 MG/DL 7.8 MG/DL 8.1 MG/DL (8.5-10.1) (8.5-10.1) (8.5-10.1) White Blood Count 4.4 TH/MM3 (4.0-11.0) Red Blood Count 3.53 MIL/MM3 (4.50-5.90) Hemoglobin 10.7 GM/DL (13.0-17.0) Hematocrit 30.4 % (39.0-51.0) Mean Corpuscular Volume 86.1 FL (80.0-100.0) Mean Corpuscular Hemoglobin 30.2 PG (27.0-34.0) Mean Corpuscular Hemoglobin 35.0 % Concent (32.0-36.0) Red Cell Distribution Width 14.8 % (11.6-17.2) Platelet Count 315 TH/MM3 (150-450) Mean Platelet Volume 7.1 FL (7.0-11.0) Neutrophils (%) (Auto) 62.2 % (16.0-70.0) Lymphocytes (%) (Auto) 13.0 % (9.0-44.0) Monocytes (%) (Auto) 19.2 % (0.0-8.0) Eosinophils (%) (Auto) 4.3 % (0.0-4.0) Basophils (%) (Auto) 1.3 % (0.0-2.0) Neutrophils # (Auto) 2.8 TH/MM3 (1.8-7.7) Lymphocytes # (Auto) 0.6 TH/MM3 (1.0-4.8) Monocytes # (Auto) 0.9 TH/MM3 (0-0.9) Eosinophils # (Auto) 0.2 TH/MM3 (0-0.4) Basophils # (Auto) 0.1 TH/MM3 (0-0.2) CBC Comment DIFF FINAL Differential Comment Magnesium Level 2.2 MG/DL (1.5-2.5) Free Thyroxine 1.62 NG/DL (0.76-1.46) Thyroid Stimulating Hormone 3.850 uIU/ML 3rd Gen (0.358-3.740) Result Diagram: 12/19/16 0418 12/19/16 0418 Microbiology Microbiology Date/Time Procedure Status Source Growth 12/19/16 13:15 Stool Occult Blood (FARRUKH) - Final Complete Stool Stool HEMOCCULT NEGATIVE 12/20/16 09:14 Stool Occult Blood (FARRUKH) Received Stool Stool Pending . Imaging Last Impressions Chest X-Ray 12/17/16 0800 Signed Impressions: Service Date/Time: Saturday, December 17, 2016 07:33 - CONCLUSION: 1. Bilateral pleural effusions and probable bibasilar atelectasis. 2. No significant change. Gera Martinez MD Brain MRI 12/15/16 0000 Signed Impressions: Service Date/Time: Thursday, December 15, 2016 14:32 - CONCLUSION: 1. No evidence of acute intracranial pathology. Chronic ischemic changes as above. Nakul Napoles MD Head CT 12/14/16 0000 Signed Impressions: Service Date/Time: Thursday, December 15, 2016 10:46 - CONCLUSION: Atrophy, otherwise negative Antonio Ryan MD FACR . Procedures * CABG x 3 on 12/01/16 . Assessment and Plan Disease Oriented Problem List: (1) Coronary artery disease Comment: Longstanding CAD -- underwent CABG x 3 in November 2016. ,. (2) S/P CABG x 3 Comment: Surgery on 12/01/16 (3) Seizures Comment: If these indeed were real seizure activity, were probably secondary to hyponatremia. I am also concerned about the possibility of SEROTONIN SYNDROME. Patient normally takes mirtazapine AND trazodone. This may have been tolerated while eating and drinking normally and well hydrated but may have become problematic post surgery and after pain meds. Also, Dextromethorphan was added on 12/14/16 . (4) Anemia Comment: Has been transfused x 2 units during this hosptialization. Hg appears stable. . (5) Hyponatremia Comment: Unclear if this was fluid overload, diurectic therapy, or SIADH. Na+ now improved. . (6) severe rheumatoid arthritis Comment: Most of his pain has been in the knees, and this was managed with Celebrex alone. . (7) TSH elevation Comment: Initially unclear if this was true hypothyroidism or TSH elevation secondary to acute non-thyroidal disease or secondary to amiodarone. Free T4 has come back elevated making true hypothyrodism unlikely. . (8) Hypoalbuminemia Comment: Not currently meeting nutritional needs but nutritional intake now appears to be improving. . (9) Hypertension (10) Hyperlipemia Symptom Scale: (1) Pain 0-10 Scale: 0 Comment: Possible sources of pain include post-operative pain at sternotomy site; wound pain; discomfort from brody cathter and vascular access; pain from prolonged bedbound status; arthritis pain. Currently he is rarely needing opiate analgesics. . . (2) Confusion 0-10 Scale: Unable to quantify Comment: Cause of confusion is uncertain. Possible hypoactive delirium, metabolic issues, UTI, hypothyroidism, depression, extreme fatigue/de- conditioning, possible serotonin syndrome etc. Now appears to be clearing. . (3) Lethargy 0-10 Scale: Unable to quantify Comment: Possible causes of lethargy probably similar to possible causes of confusion. . (4) Anorexia 0-10 Scale: Unable to quantify (Lost his appetite ) Comment: Has had little appetite since his surgery. In rehab, he would eat if encouraged. Back on the medical floor, he is eating little even with encouragement. . Pertinent Non-Medical Issues Psychosocial: well supported by spouse. Lives in [place]. Two sons and a stepdaughter live in [place]. Spiritual: Druze and spirituality are very important. Members of [employer]. Their room service bellhop is providing spiritual support Legal: Living will and health care surrogate scanned into [employer] Ethical issues impacting care: Patient is lethargic, intermittently confused, and intermittently hallucinating. Recommend at least shared decision making with health care surrogate until he is more consistently capacitated. . Important Contacts * Aliza Canchola (spouse and primary health care surrogate) * Karen Sosa (step-daughter and secondary health care surrogate) Karen is a hospice nurse with [employer]. * Giorgio Canchola ( tertiary health care surrogate). . Prognosis Patient's surgery was successful and from a cardiac standpoint, he should be able to recover. If the patient's failure in rehab is due to an easily correctable problem (e.g. hyponatremia; medication reaction; hypothyroidism; depression; etc) then there is a reasonable chance that he can thrive if the underlying problem is corrected. If the patient is just too debilitated to recover from the surgery, then he may continue to decline. Another factor is whether he will permit artificial nutrition/hydration if he continues to be unable to meet his nutritional needs. At this point, he seems to be rallying . . Code Status: Full Code Plan == Code Status: FULL CODE. At this point, patient/family has requested full code and up to 72 hours on life support to assess situation. == Decision making: Patient is intermittently confused and very lethargic with occasional hallucinations. Recommend that his health care surrogate participate in all decision making until such time as he is more consistently capacitated. Anticipate he will be able to make all his health care decisions independently in near future. His primary health care surrogate is his spouse-- Aliza Canchola. == Goals of medical Treatment: Goals remain aggressive. From patient/family perspective, surgery was successful. His current inability to rehab is seen by them to be secondary to correctable problems -- e.g. hyponatremia. They want these correctable problems addressed and then give him a chance to see how he does. == Seizures vs tremor vs mycolonus: Unclear if this was due to hyponatremia or possibly serotonin syndrome. The latter was a concern given some continued myoclonus in spite of sodium correction. Mirtazapine, trazodone, dextromethorphan could all contribute and might have been exacerbated by post- surgery pain medications. Pt was on the former prior to surgery, but perhaps with impaired nutrition, electrolyte abnormalities, opiates, etc., former doses were too much. We have stopped the trazodone which was for sleep. does not want to lower mirtazapine because of patient's history of severe depression which was refractory until they arrived at the 30 mg dose of mirtazapine. Will put him back on the 30 mg. == Elevated TSH: TSH elevation at 7.8 on 12/14/16 . This has come down and Free T4 is actually elevated. Does not appear to have true hypothyroidism. Tests may be altered due to amiodarone or non-thyroidal illness. == Amiodarone, mirtazapine, and trazodone are all QT prolongers as is Levaquin (now DCd). May want to follow EKG if these are continued given recent heart surgery and history of dysrhythmia. == Pain: Pain was not a major problem for the patient prior to his heart surgery. He has rheumatoid arthritis with accompanying knee pain. This was controlled at home with Celebrex. He has other possible sources of discomfort now -- recent open heart surgery; prolonged bedbound status; pressure sore; brody catheter; vascular access; muscle soreness from myoclonus; etc. Acetaminophen and hydrocodone are available and are rarely being used. No further recommendations at this time. == Lethargy: Probably multi-factorial including deconditioning, fatigue from myoclonus; medication reaction; depression; etc. Resolving. No further recommendations. == Confusion: Probably multi-factorial as above. Improving. No further recommendations. == Anorexia: Improving. == Hopefully, he will be able to return to rehab soon . . Attestation To help prompt me to consider important information that might be impacting today's encounter and assessment, information from prior notes written by myself or my colleagues may have been "brought forward" into today's note. My signature on this note, however, is an attestation that I personally performed the exam, history, and/or decision-making noted today, and, unless otherwise indicated, the interactions with patient, family, and staff as well as the review of records all occurred today. I also attest that the listed assessment and stated plan reflect my best clinical judgment today based on the combination of historical information, prior notes, and today's exam/ interactions. When time spent is documented, it refers only to time spent today by the signer, or if indicated, combined time spent today by collaborating physician/nurse practitioner. . Jose Arthur MD Dec 20, 2016 11:47
[2016-12-20 12:54] LABS: BICARBONATE 28.5 MEQ/L (21.0-32.0); POTASSIUM 4.9 MEQ/L (3.5-5.1)
[2016-12-20] MEDS ORDERED: MIRTAZAPINE 15 MG TAB PO SCH (21:00)
[2016-12-20] MEDS: METOPROLOL TARTRATE 25 MG TAB PO SCH (22:17)
[2016-12-20] MEDS: LATANOPROST 0.005% OPHT SOLN 2.5 ML BTL EACH EYE SCH (22:17)
[2016-12-20] MEDS: TAMSULOSIN HCL 0.4 MG CAP PO SCH (22:22)
[2016-12-20] MEDS: LORazepam 0.5 MG TAB PO PRN (22:26)
[2016-12-21 00:35] VITALS: BP 176/81; PULSE 82; RESP 20; TEMP 98.6; O2SAT 96
[2016-12-21 00:50] VITALS: BP 150/75
[2016-12-21 03:37] VITALS: BP 175/83; PULSE 83; RESP 21; TEMP 98; O2SAT 95
[2016-12-21] MEDS ORDERED: ENALAPRILAT 1.25 MG/ML VIAL IV PUSH PRN (05:15)
[2016-12-21 06:48] LABS: BICARBONATE 25.9 MEQ/L (21.0-32.0); POTASSIUM 4.6 MEQ/L (3.5-5.1)
[2016-12-21 08:00] VITALS: BP 156/75; PULSE 82; RESP 18; TEMP 97.7; O2SAT 95
[2016-12-21] MEDS: AMIODARONE 200 MG TAB PO SCH (09:22)
[2016-12-21] MEDS: DOCUSATE SODIUM 100 MG CAP PO SCH (09:22)
[2016-12-21] MEDS: MULTIVITAMIN TAB PO SCH (09:22)
[2016-12-21] MEDS: POTASSIUM CHLORIDE 20 MEQ CONTROLLED RELEASE TAB PO SCH (09:23)
[2016-12-21] MEDS: VALSARTAN 160 MG TAB PO SCH (09:23)
[2016-12-21] MEDS: SODIUM CHLORIDE 0.9% FLUSH 5 ML FLUSH FLUSH SCH (09:23)
[2016-12-21] MEDS: ASPIRIN 81 MG CHEW TAB PO SCH (09:23)
[2016-12-21] MEDS: POLYETHYLENE GLYCOL 17 GM PKG PO SCH (09:23)
[2016-12-21] MEDS: CLOPIDOGREL 75 MG TAB PO SCH (09:23)
[2016-12-21] MEDS ORDERED: TAMS5CAP PO (11:16)
[2016-12-21] MEDS ORDERED: METO25TA3 PO (11:19)
[2016-12-21] MEDS ORDERED: HYDR-3516 PO (11:19)
[2016-12-21 11:24] VITALS: O2SAT 95
--- NOTE | 2016-12-21 11:25 | HHI.DCPOC ---
Discharge Care Plan Diagnosis: (1) S/P CABG x 3 (2) Seizures (3) Coronary artery disease (4) Hyponatremia (5) HTN (hypertension) (6) BPH w urinary obs/LUTS (7) Hypertension Goals to Promote Your Health * To prevent worsening of your condition and complications * To maintain your health at the optimal level Directions to Meet Your Goals Take your medications as prescribed Follow your dietary instruction Follow activity as directed Keep your appointments as scheduled Take your immunizations and boosters as scheduled If your symptoms worsen call your PCP, if no PCP go to Urgent Care Center or Emergency Room Smoking is Dangerous to Your Health. Avoid second hand smoke Call the 24-hour hour crisis hotline for domestic abuse at Christopher Khan MD Dec 21, 2016 11:25
[2017-01-01] MEDS ORDERED: WHEEMIS3 (13:09)
[2017-01-01] MEDS ORDERED: GETGO ROLLING W1 MI1 (13:09)
[2017-01-05] MEDS ORDERED: COMMODE 3-IN-11 MIS (07:48)
[2017-01-08] MEDS ORDERED: AMIO200T PO (08:34)
[2017-01-08] MEDS ORDERED: MIRT30TA PO (08:34)
[2017-01-08] MEDS ORDERED: LEVA750T PO (08:34)
[2017-01-08] MEDS ORDERED: PANT40TA3 PO (08:34)
[2017-01-08] MEDS ORDERED: BACT800T5 PO (08:34)
[2017-01-08] MEDS ORDERED: CLOP75TA PO (08:34)
[2017-01-08] MEDS ORDERED: MEGE40SU PO (08:34)
[2017-01-08] MEDS ORDERED: NYST15T TOPICAL (08:34)
[2017-01-08] MEDS ORDERED: FLUD.1 PO (08:34)
[2017-01-08] MEDS ORDERED: LUMI0.01 EACH EYE (08:34)
[2017-01-08] MEDS ORDERED: MULTTAB67 PO (08:34)
[2017-01-08] MEDS ORDERED: ACET325T PO (08:34)
[2017-01-08] MEDS ORDERED: ASPI81CH CHEW (08:34)
[2017-01-08] MEDS ORDERED: DOCU1CAP39 PO (08:34)
[2017-01-08] MEDS ORDERED: BETH10 PO (08:34)
[2017-01-08] MEDS ORDERED: SODI1TAB PO (08:34)
[2017-01-08] MEDS ORDERED: [UNRECOGNIZED DRUG - CODE] TOPICAL (08:44)
[2017-01-08] MEDS ORDERED: LIPI40TA PO (13:02)
[2017-01-09] MEDS ORDERED: TAMS5CAP PO (14:46)
[2017-01-22] MEDS ORDERED: PLAV75TA29 PO (11:45)
[2017-01-22] MEDS ORDERED: CELE200C PO (11:45)
[2017-01-22] MEDS ORDERED: COLA100C3 PO (11:45)
[2017-01-22] MEDS ORDERED: METO25TA3 PO (11:45)
[2017-01-22] MEDS ORDERED: TRAZ50TA12 PO (11:45)
[2017-01-22] MEDS ORDERED: BETH10 PO (14:36)
[2017-01-30] MEDS ORDERED: PROS5TAB PO (12:57)
--- NOTE | 2017-02-08 20:48 | HHI.DS ---
Discharge Summary Admission Date Dec 14, 2016 at 23:20 Discharge Date: Dec 21, 2016 Admitting Diagnosis (1) Hyponatremia Diagnosis: Principal (2) Anemia Diagnosis: Principal (3) Seizures Diagnosis: Secondary (4) UTI (urinary tract infection) Diagnosis: Secondary (5) Coronary artery disease Diagnosis: Secondary (6) HTN (hypertension) Diagnosis: Secondary (7) Anxiety and depression Diagnosis: Secondary Hospital Course - Pt transferred from [facility] on 12/14/16 with seizure activity. - Pt was found to have significant hyponatremia with Na+ 124 - Though to possibly be d/t volume overload, poor nutritional status - Pt was started on NS prior to transfer to our service (Of note, pt had been given Lasix prior to transfer for possible volume overload) - Pt was started on 2% NACL on 12/15 with slow increase from 20ml/hr to 30ml/hr to currently at 40mL/hr - Serial serum Na+ increased to 124 (12/16/16) --> 125 (12/17/16) --> 128 (12/17/16) - -> 129 (12/18/16) - Stop IVF and IV Lasix, pt does not currently appear volume overloaded. Pt with normal systolic function on previous echo and no evidence of diastolic dysfunction noted at that time. - PT/OT/ST are following - Pt still quite weak will likely need continued rehab if he improves clinically and can participate - Pt with noted myoclonus There is concern regarding possible serotonin syndrome. Pts Mirtazapine is being increased back to 30 mg on per 's request, he is having lorazepam substituted for trazodone for sleep. - Encourage PO intake and nursing staff to assist with feeding. na stable. eager for d/c . discussed with Shan. They are planning to ramp up his PT slowly so he can tolerate it. cont brody for bph/obstruction LUTS. d/c today. f/u urology for voiding trial. - His anemia ikely d/t recent CABG, acute illness, and poor PO intake - serum iron 17, start PO iron - once recovered from current condition, consider screening colonoscopy - Pt was transfused 2 units PRBCs (12/16/16) - Hg 7.3 (12/16/16) --> Hg 10.0 (12/17/16) - Monitor - Pt with noted pyuria on UA on 12/14 - No fever and No leukocytosis - Urine culture growing Klebsiella pneumoniae - Pt was given Levaquin IV x 2 doses Pt Condition on Discharge: Stable Discharge Disposition: Rehab Inpatient Discharge Instructions DIET: Follow Instructions for: Heart Healthy Diet Speech Therapy-Diet Recommends: Soft Activities you can perform: Regular-No Restrictions Follow up Referrals: Urology - 1 Week with Jaycob Morrow DO Discontinued Medications: Celecoxib (Celebrex) 200 Mg Cap 200 MG PO DAILY Pain Management Ref 0 CAP Furosemide (Lasix) 40 Mg Tab 40 MG PO DAILY edema #7 Ref 0 TAB Metoprolol Tartrate (Metoprolol Tartrate) 75 Mg Tab 75 MG PO BID Blood Pressure Management #60 Ref 2 TAB Potassium Chloride ER (Potassium Chloride ER) 20 Meq Tab 20 MEQ PO DAILY Electrolyte Replacement #7 Ref 0 TAB Terazosin (Terazosin) 2 Mg Cap 2 MG PO HS #30 Ref 0 CAP Christopher Khan MD Feb 08, 2017 20:48
== END 2016-12-21 13:08 | DRG 640 ==
LOC: N06A 23:20 → N04B 12-20 18:14
PROVIDERS: ADMIT Hospitalist; ATTEND Hospitalist
PROC: 30233N1 Transfusion of Nonautologous Red Blood Cells into Peripheral Vein, Percutaneous Approach (ICD-10-PCS; principal; 2016-12-16)
DX: E87.1 Hypo-osmolality and hyponatremia (principal); G93.40 Encephalopathy, unspecified; L89.159 Pressure ulcer of sacral region, unspecified stage; L89.309 Pressure ulcer of unspecified buttock, unspecified stage; R56.9 Unspecified convulsions; I50.9 Heart failure, unspecified; N39.0 Urinary tract infection, site not specified; I25.110 Atherosclerotic heart disease of native coronary artery with unstable angina pectoris; J44.9 Chronic obstructive pulmonary disease, unspecified; M06.9 Rheumatoid arthritis, unspecified; Z95.1 Presence of aortocoronary bypass graft; E78.5 Hyperlipidemia, unspecified; I10 Essential (primary) hypertension; M19.90 Unspecified osteoarthritis, unspecified site; Z85.828 Personal history of other malignant neoplasm of skin; Z85.46 Personal history of malignant neoplasm of prostate; F32.9 Major depressive disorder, single episode, unspecified; F41.9 Anxiety disorder, unspecified; Z80.8 Family history of malignant neoplasm of other organs or systems; Z84.89 Family history of other specified conditions; G25.3 Myoclonus; R06.00 Dyspnea, unspecified; Z87.891 Personal history of nicotine dependence; D64.9 Anemia, unspecified; G47.00 Insomnia, unspecified; N40.1 Benign prostatic hyperplasia with lower urinary tract symptoms; R33.8 Other retention of urine; B96.1 Klebsiella pneumoniae [K. pneumoniae] as the cause of diseases classified elsewhere
CPT/HCPCS: 36430; 70450; 70551; 71010; 80048; 82272; 82436; 82550; 82552; 82728; 83540; 83550; 83615; 83735; 83930; 83935; 84133; 84155; 84295; 84300; 84439; 84443; 84550; 85025; 85044; 86850; 86900; 86901; 86920; 94640; 94664; 95819; J1940; J1956; J2060; J7030; P9016